=== PATIENT | male | born 1965 | race Caucasian/White ===

== ENCOUNTER 2018-01-12 14:54 | Inpatient (IN) | payer OTHER ==
[2018-01-12 16:28] VITALS: BMI 20.2
--- NOTE | 2018-01-12 16:28 | HP ---
COWS - Scale Resting Pulse: 1= [place] 81-100 Sweatin=Flushed/Facial Moisture Restless Observation: 3= Extraneous Movement Pupil Size: 2= Moderately Dilated Bone or Joint Aches: 2= Severe Diffuse Aches Runny Nose/ Eye Tearin= Runny Nose/Eyes GI Upset > 30mins: 3= Vomiting/Diarrhea Tremor Observation: 2= Slight Tremor Visible Yawning Observation: 1= 1-2x During Session Anxiety or Irritability: 2=Irritable/Anxious Goose Flesh Skin: 0=Smooth Skin COWS Score: 20 CIWA Score - CIWA Score Nausea/Vomitin Muscle Tremors: 3 Anxiety: 3 Agitation: 3 Paroxysmal Sweats: 1-Minimal Palms Moist Orientation: 0-Oriented Tacttile Disturbances: 1-Very Mild Itch/Numbness Auditory Disturbances: 1-Very Mild Visual Disturbances: 1-Very Mild Sensitivity Headache: 2-Mild CIWA-Ar Total Score: 18 Admission ROS BHS - HPI Chief Complaint: i need help to stop using heroin,alcohol and crack Allergies/Adverse Reactions: Allergies Allergy/AdvReac Type Severity Reaction Status Date / Time No Known Allergies Allergy Verified 12/11/17 18:44 History of Present Illness: this 52 years old male with heroin,alcohol and cocaine dependence,seeking detox, withdrawal symptom,last detox to 12/13/17 not completed nicotine dependence depression weight loss longest period of sobriety 1 year multiple admissions in detox but keep relapsing asthma hiv positive since 1999 Exam Limitations: No Limitations - Review of Systems Constitutional: Chills, Loss of Appetite, Malaise, Night Sweats, Changes in sleep, Weakness, Unintentional Wgt. Loss EENT: reports: Tearing, Nose Congestion Respiratory: reports: No Symptoms reported Cardiac: reports: Palpitations GI: reports: Diarrhea, Nausea, Vomiting, Abdominal cramping : reports: No Symptoms Reported Musculoskeletal: reports: Back Pain, Muscle Pain Integumentary: reports: Dryness Neuro: reports: Headache, Tremors Endocrine: reports: No Symptoms Reported Hematology: reports: No Symptoms Reported Psychiatric: reports: No Sypmtoms Reported, Judgement Intact, Mood/Affect Appropiate, Orientated x3, Anxious, Depressed Patient History - Patient Medical History Hx Anemia: No Hx Asthma: Yes (on albutrol inhaler) Hx Chronic Obstructive Pulmonary Disease (COPD): No Hx Cancer: No Hx Cardiac Disorders: No Hx Congestive Heart Failure: No Hx Hypertension: No Hx Hypercholesterolemia: No Hx Pacemaker: No HX Cerebrovascular Accident: No Hx Seizures: No Hx Dementia: No Hx Diabetes: No Hx Gastrointestinal Disorders: No Hx Liver Disease: No Hx Genitourinary Disorders: No Hx Sexually Transmitted Disorders: Yes (HIV ) Hx Renal Disease (ESRD): No Hx Thyroid Disease: No Hx Human Immunodeficiency Virus (HIV): Yes (HIV dx 2000 [place], [place] or [place] ) Hx Hepatitis C: No Hx Depression: Yes Hx Suicide Attempt: Yes (cut left wrist at age of 18) Hx Bipolar Disorder: No Hx Schizophrenia: No Other Medical History: no suicidal,no homicidal - Patient Surgical History Past Surgical History: No Hx Neurologic Surgery: No Hx Cataract Extraction: No Hx Cardiac Surgery: No Hx Lung Surgery: No Hx Breast Surgery: No Hx Breast Biopsy: No Hx Abdominal Surgery: No Hx Appendectomy: No Hx Cholecystectomy: No Hx Genitourinary Surgery: No Hx Section: No Hx Orthopedic Surgery: No Anesthesia Reaction: No - PPD History Previous Implant?: Yes Documented Results: Negative w/proof Date: 12/14/17 Results: no reading PPD to be Administered?: Yes - Smoking Cessation Smoking history: Current every day smoker Have you smoked in the past 12 months: Yes Aproximately how many cigarettes per day: 20 Hx Chewing Tobacco Use: No Initiated information on smoking cessation: Yes 'Breaking Loose' booklet given: 01/12/18 - Substance & Tx. History Hx Alcohol Use: Yes Hx Substance Use: Yes Substance Use Type: Alcohol, Cocaine, Heroin Hx Substance Use Treatment: Yes ([facility] 12/11/17 to 12/13/17 not completed) - Substances Abused Alcohol Route: Oral Frequency: Daily Amount used: 2/24OZ BEER Age of first use: 20 Date of Last Use: 01/12/18 Heroin Route: SNIFF Frequency: Daily Amount used: 2 BAGS Age of first use: 20 Date of Last Use: 01/12/18 Family Disease History - Family Disease History Family Disease History: Diabetes: Mother (, alzheimers ), Other: Father ( , suicide ), Mother Admission Physical Exam BHS - Vital Signs Vital Signs: Vital Signs Temperature 96.8 F L 01/12/18 16:25 Pulse Rate 83 01/12/18 16:25 Respiratory Rate 20 01/12/18 16:25 Blood Pressure 165/61 01/12/18 16:25 O2 Sat by Pulse Oximetry (%) - Physical General Appearance: Yes: Moderate Distress, Tremorous, Irritable, Sweating, Anxious HEENTM: Yes: Normal ENT Inspection, NITHYA, Pharynx Normal, Other (loss upper denture) Respiratory: Yes: Lungs Clear, Normal Breath Sounds, No Respiratory Distress ( asthma) Neck: Yes: Within Normal Limits, Supple, Trachea in good position Breast: Yes: Within Normal Limits Cardiology: Yes: Within Normal Limits, Regular Rhythm, Regular Rate, S1, S2 Abdominal: Yes: Within Normal Limits, Normal Bowel Sounds, Non Tender, Flat, Soft Genitourinary: Yes: Within Normal Limits Musculoskeletal: Yes: Within Normal Limits, full range of Motion, Back pain, Muscle Pain Extremities: Yes: Tremors Neurological: Yes: 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 NML intact, Fully Oriented, Alert, Motor Strength 5/5 Integumentary: Yes: Dry Lymphatic: Yes: Within Normal Limits - Diagnostic (1) Opioid dependence with withdrawal Current Visit: Yes Status: Acute (2) Alcohol dependence with withdrawal Current Visit: No Status: Acute Qualifiers: Complication of substance-induced condition: uncomplicated Qualified Code(s ): F10.230 - Alcohol dependence with withdrawal, uncomplicated (3) Cocaine dependence Current Visit: No Status: Acute Qualifiers: Substance use status: uncomplicated Qualified Code(s): F14.20 - Cocaine dependence, uncomplicated (4) Asthma Current Visit: No Status: Acute Qualifiers: Asthma severity: mild Asthma persistence: intermittent Asthma complication type: with acute exacerbation Qualified Code(s): J45.21 - Mild intermittent asthma with (acute) exacerbation (5) Insomnia Current Visit: No Status: Acute (6) HIV (human immunodeficiency virus infection) Current Visit: No Status: Chronic (7) Anxiety and depression Current Visit: Yes Status: Acute (8) Weight loss Current Visit: Yes Status: Acute Cleared for Admission S - Detox or Rehab S Level of Care: Medically Managed Detox Regimen/Protocol: Methadone/Librium
[2018-01-12] MEDS ORDERED: LOPERAMIDE HCL 2 MG CAPSULE PO PRN (16:45)
[2018-01-12] MEDS ORDERED: guaiFENesin/D-METHORPHAN HB 10 ML UNIT-DOSE CUPS PO PRN (16:45)
[2018-01-12] MEDS ORDERED: ACETAMINOPHEN 325 MG TABLET (FP) PO PRN (16:45)
[2018-01-12] MEDS ORDERED: MAG HYDROX/AL HYDROX/SIMETH 30 ML UNIT-DOSE CUP PO PRN (16:45)
[2018-01-12] MEDS ORDERED: MAGNESIUM CITRATE 300 ML BOTTLE PO PRN (16:45)
[2018-01-12] MEDS ORDERED: P-EPHED 60MG/TRIPROLIDI 2.5MG TABLET PO PRN (16:45)
[2018-01-12] MEDS ORDERED: chlordiazePOXIDE HCL 25 MG CAPSULE PO PRN (16:45)
[2018-01-12] MEDS ORDERED: MENTHOL/PHENOL 1 EACH UD MM PRN (16:45)
[2018-01-12] MEDS ORDERED: MAGNESIUM HYDROX 2400MG/30ML ORAL SUSPENSION 30 ML CUP PO PRN (16:45)
[2018-01-12] MEDS ORDERED: METHADONE HCL 10 MG TABLET (FOR DETOX USE ONLY) PO ONE ×2 (17:30→23:00)
[2018-01-12] MEDS: NICOTINE 21 MG/24 HOURS TOPICAL PATCH TD SCH (19:02)
[2018-01-12 22:21] LABS: URINE APPEARANCE CLEAR; URINE BILIRUBIN NEGATIVE (<2.0 mg/dL); URINE COLOR YELLOW; URINE GLUCOSE (UA) NEGATIVE (NEGATIVE); URINE KETONE NEGATIVE (NEGATIVE); URINE LEUK ESTERASE TRACE (NEGATIVE); URINE NITRITE NEGATIVE (NEGATIVE); URINE PROTEIN NEGATIVE (NEGATIVE)
[2018-01-12 22:35] LABS: EPI CELLS RARE /HPF (FEW); URINE MUCUS RARE
[2018-01-12] MEDS: THIAMINE HCL 100 MG TABLET (FP) PO SCH (22:41)
[2018-01-12] MEDS: chlordiazePOXIDE HCL 25 MG CAPSULE PO SCH (22:42)
[2018-01-13] MEDS: chlordiazePOXIDE HCL 25 MG CAPSULE PO SCH ×4 (05:21→22:30)
--- NOTE | 2018-01-13 08:55 | EKG ---
Test Reason : Blood Pressure : / mmHG Vent. Rate : 076 BPM Atrial Rate : 076 BPM P-R Int : 132 ms QRS Dur : 078 ms QT Int : 352 ms P-R-T Axes : 080 067 062 degrees QTc Int : 396 ms NORMAL SINUS RHYTHM NORMAL ECG WHEN COMPARED WITH ECG OF 12-DEC-2017 02:07, NO SIGNIFICANT CHANGE WAS FOUND Confirmed by RAINER ENGLISH MD ([id number]) on 01/13/2018 8:55:06 AM Referred By: Geovany Limon Confirmed By:RAINER ENGLISH MD
[2018-01-13] MEDS: ALBUTEROL SO4 8 GM HFA INHALER IH PRN (09:14)
--- NOTE | 2018-01-13 09:33 | CONSULT ---
[facility] Psychiatric Consult - Data Date of interview: 01/13/18 Admission source: Self-referred, I called the ambulance Identifying data: Patient is a 52 y/o male single, unemployed, no children , homelesa, SSI dependent Substance Abuse History: Here for use of ETOH, crack/ cocaine, His most recent Detox treatment was last month @ [facility] and failed to complete the treatment program. Refer to addiction counselor note for detailed drug history Medical History: Medical history HIV + Asthma Psychiatric History: He denies past psych admission or treatment, denies depression, anxiety, psychosis or mood swings. He denies suicidal or homicidal ideation. He reported a vague history of self-cutting behavior in his late adolescence Physical/Sexual Abuse/Trauma History: Denied Mental Status Exam - Mental Status Exam Alert and Oriented to: Place, Person Cognitive Function: Fair Patient Appearance: Unkempt Mood: Euthymic Affect: Appropriate Patient Behavior: Sedated, Fatigued, Cooperative Speech Pattern: Slurred Voice Loudness: Moderately Soft/Quiet Thought Process: Intact Thought Disorder: Not Present Hallucinations: None Suicidal Ideation: None Homicidal Ideation: None Insight/Judgement: Poor Sleep: Poorly Appetite: Fair Muscle strength/Tone: Normal Gait/Station: Normal Psychiatric Findings - Problem List ([place] 1, 2,3) (1) Opioid dependence with withdrawal Current Visit: Yes Status: Acute (2) Alcohol dependence with withdrawal Current Visit: No Status: Acute Qualifiers: Complication of substance-induced condition: uncomplicated Qualified Code(s ): F10.230 - Alcohol dependence with withdrawal, uncomplicated (3) Asthma Current Visit: No Status: Acute Qualifiers: Asthma severity: mild Asthma persistence: intermittent Asthma complication type: with acute exacerbation Qualified Code(s): J45.21 - Mild intermittent asthma with (acute) exacerbation (4) Cocaine dependence Current Visit: No Status: Acute Qualifiers: Substance use status: uncomplicated Qualified Code(s): F14.20 - Cocaine dependence, uncomplicated (5) Insomnia Current Visit: No Status: Acute (6) HIV (human immunodeficiency virus infection) Current Visit: No Status: Chronic - Initial Treatment Plan Initial Treatment Plan: Continue Detox treatmment. Psychoeducation. Monitor progress. Melatonin prn
[2018-01-13] MEDS ORDERED: METHADONE HCL 10 MG TABLET (FOR DETOX USE ONLY) PO SCH (10:00)
[2018-01-13 10:19] LABS: HEMATOCRIT 38.8 % (35.4-49); HEMOGLOBIN 13.4 GM/dL (11.7-16.9); MCH 34.5 pg (25.7-33.7); MCHC 34.6 g/dl (32.0-35.9); MEAN CELL VOLUME 99.7 fl (80-96); MEAN PLT VOLUME 9.2 fl (7.5-11.1); PLATELET COUNT 117 K/MM3 (134-434); WHITE BLOOD COUNT 2.1 K/mm3 (4.0-10.0)
[2018-01-13] MEDS: DARUNAVIR ETHANOLATE 600 MG TAB PO SCH (10:30)
[2018-01-13] MEDS: PRENATAL VITAMINS W/ FOLIC ACID TABLET (FP) PO SCH (10:30)
[2018-01-13] MEDS: EMTRICITABINE 200MG/TENOFOVIR 300MG PO SCH (10:30)
[2018-01-13] MEDS: NICOTINE 21 MG/24 HOURS TOPICAL PATCH TD SCH (10:30)
[2018-01-13 10:35] LABS: CHLORIDE 106 mmol/L (98-107); SODIUM 140 mmol/L (136-145)
[2018-01-13 10:45] LABS: ALBUMIN 3.1 g/dl (3.4-5.0); ALK PHOS 90 U/L (45-117); ANION GAP 7 (8-16); BILIRUBIN,TOTAL 0.4 mg/dL (0.2-1.0); BLOOD UREA NITROGEN 15 mg/dL (7-18); CALCIUM 8.5 mg/dL (8.5-10.1); CO2 27 mmol/L (21-32); CREATININE 0.7 mg/dL (0.7-1.3); GLUCOSE,RANDOM 84 mg/dL (74-106); SGOT/AST 51 U/L (15-37); SGPT/ALT 43 U/L (12-78); TOT PROT 7.2 g/dl (6.4-8.2)
[2018-01-13] MEDS: RITONAVIR 100 MG TABLET PO SCH (11:16)
--- NOTE | 2018-01-13 15:04 | PN ---
S CIWA - CIWA Score Nausea/Vomitin Muscle Tremors: 4-Moderate,w/Arms Extend Anxiety: 4-Mod. Anxious/Guarded Agitation: 4-Moderately Restless Paroxysmal Sweats: 4-Forehead w/Sweat Beads Orientation: 0-Oriented Tacttile Disturbances: 1-Very Mild Itch/Numbness Auditory Disturbances: 0-None Visual Disturbances: 0-None Headache: 1-Very Mild CIWA-Ar Total Score: 20 BHS COWS - Scale Resting Pulse: 0= [place] 80 or Below Sweatin= Chills/Flushing Restless Observation: 3= Extraneous Movement Pupil Size: 1= Pupils >than Normal Bone or Joint Aches: 2= Severe Diffuse Aches Runny Nose/ Eye Tearin= Runny Nose/Eyes GI Upset > 30mins: 2= Nausea/Diarrhea Tremor Observation of Outstretched Hands: 2= Slight Tremor Visible Yawning Observation: 1= 1-2x During Session Anxiety or Irritability: 2=Irritable/Anxious Goose Flesh Skin: 0=Smooth Skin COWS Score: 16 BHS Progress Note (SOAP) Subjective: Tremor, chills, diarrhea(x 2 this AM), interrupted sleep; requesting cane for easier mobility due to chronic pain in hips Objective: 01/13/18 15:02 Last Vital Signs Temp Pulse Resp BP Pulse Ox 98.1 F 78 18 97/64 01/13/18 14:44 01/13/18 14:44 01/13/18 14:44 01/13/18 14:44 Hypotension noted Laboratory Tests 01/12/18 01/13/18 01/13/18 Unknown 07:40 07:40 WBC 2.1 L RBC 3.90 L Hgb 13.4 Hct 38.8 MCV 99.7 H MCH 34.5 H MCHC 34.6 RDW 13.0 Plt Count 117 L MPV 9.2 Sodium 140 Potassium 4.0 Chloride 106 Carbon Dioxide 27 Anion Gap 7 L BUN 15 Creatinine 0.7 Creat Clearance w eGFR > 60 Random Glucose 84 Calcium 8.5 Total Bilirubin 0.4 AST 51 H ALT 43 Alkaline Phosphatase 90 Total Protein 7.2 Albumin 3.1 L Urine Color Yellow Urine Appearance Clear Urine pH 6.0 Ur Specific [place] 1.014 Urine Protein Negative Urine Glucose (UA) Negative Urine Ketones Negative Urine Blood Negative Urine Nitrite Negative Urine Bilirubin Negative Urine Urobilinogen 2.0 Ur Leukocyte Esterase Trace Urine WBC (Auto) 11 Urine RBC (Auto) 2 Ur Epithelial Cells Rare Urine Mucus Rare RPR Titer 01/13/18 07:40 WBC RBC Hgb Hct MCV MCH MCHC RDW Plt Count MPV Sodium Potassium Chloride Carbon Dioxide Anion Gap BUN Creatinine Creat Clearance w eGFR Random Glucose Calcium Total Bilirubin AST ALT Alkaline Phosphatase Total Protein Albumin Urine Color Urine Appearance Urine pH Ur Specific [place] Urine Protein Urine Glucose (UA) Urine Ketones Urine Blood Urine Nitrite Urine Bilirubin Urine Urobilinogen Ur Leukocyte Esterase Urine WBC (Auto) Urine RBC (Auto) Ur Epithelial Cells Urine Mucus RPR Titer Nonreactive Labs reviewed Assessment: 01/13/18 15:03 Withdrawal symptoms Noted with hypotension Plan: Continue detox Hypotension: asymptomatic, encouraged PO water hydration
[2018-01-13] MEDS: THIAMINE HCL 100 MG TABLET (FP) PO SCH (22:30)
[2018-01-14] MEDS: ALBUTEROL SO4 8 GM HFA INHALER IH PRN (03:03)
[2018-01-14] MEDS: chlordiazePOXIDE HCL 25 MG CAPSULE PO SCH ×3 (05:39→17:28)
[2018-01-14] MEDS: IBUPROFEN 400 MG TABLET (FP) PO PRN ×2 (05:41→15:47)
--- NOTE | 2018-01-14 06:36 | PN ---
[facility] Progress Note Note: Patient complained of dry cough. Temp is 101.4F. Patient reports that he has history of pneumonia Vital Signs Temperature 101.4 F H 01/14/18 06:34 Pulse Rate 87 01/14/18 06:34 Respiratory Rate 18 01/14/18 06:34 Blood Pressure 95/55 01/14/18 06:34 O2 Sat by Pulse Oximetry (%) Action: Orders-Chest x-ray, CBC with Differential, Urinalysis and Tylenol for fever
[2018-01-14] MEDS: RITONAVIR 100 MG TABLET PO SCH (10:37)
[2018-01-14] MEDS: NICOTINE 21 MG/24 HOURS TOPICAL PATCH TD SCH (10:37)
[2018-01-14] MEDS: EMTRICITABINE 200MG/TENOFOVIR 300MG PO SCH (10:38)
[2018-01-14] MEDS: DARUNAVIR ETHANOLATE 600 MG TAB PO SCH (10:38)
[2018-01-14 11:15] LABS: BASO % 0.2 % (0-2.0); EOS % 0.5 % (0-4.5); HEMATOCRIT 38.3 % (35.4-49); HEMOGLOBIN 13.3 GM/dL (11.7-16.9); LYMPH % 24.6 % (8-40); MCH 34.9 pg (25.7-33.7); MCHC 34.9 g/dl (32.0-35.9); MEAN CELL VOLUME 100.1 fl (80-96); MONO % 10.1 % (3.8-10.2); NEUT % 64.6 % (42.8-82.8); PLATELET COUNT 112 K/MM3 (134-434); RBC 3.82 M/mm3 (4.00-5.60); RDW 12.7 % (11.9-15.9); WHITE BLOOD COUNT 3.8 K/mm3 (4.0-10.0)
[2018-01-14] MEDS: PRENATAL VITAMINS W/ FOLIC ACID TABLET (FP) PO SCH (11:29)
[2018-01-14] MEDS: METHADONE HCL 5 MG TABLET (FOR DETOX USE ONLY) PO SCH (12:41)
--- NOTE | 2018-01-14 13:01 | PN ---
S CIWA - CIWA Score Nausea/Vomitin-No Nausea/No Vomiting Muscle Tremors: 4-Moderate,w/Arms Extend Anxiety: 4-Mod. Anxious/Guarded Agitation: 3 Paroxysmal Sweats: 1-Minimal Palms Moist Orientation: 0-Oriented Tacttile Disturbances: 0-None Auditory Disturbances: 0-None Visual Disturbances: 0-None Headache: 0-None Present CIWA-Ar Total Score: 12 BHS COWS - Scale Resting Pulse: 1= [place] 81-100 Sweatin= Chills/Flushing Restless Observation: 3= Extraneous Movement Pupil Size: 0= Normal to Room Light Bone or Joint Aches: 4=Acute Joint/Muscle Pain Runny Nose/ Eye Tearin= None GI Upset > 30mins: 0= None Tremor Observation of Outstretched Hands: 2= Slight Tremor Visible Yawning Observation: 1= 1-2x During Session Anxiety or Irritability: 1=Feels Anxious/Irritable Goose Flesh Skin: 0=Smooth Skin COWS Score: 13 S Progress Note (SOAP) Subjective: ANXIETY,SWEATS,FATIGUE, DIZZINESS. PT HAD TEMP 101.9 FROM PREVIOUS SHIFT. AFEBRILE NOW. Objective: 01/14/18 12:59 Vital Signs - 24 hr 01/13/18 01/13/18 01/13/18 14:44 18:00 21:46 Temperature 98.1 F 99.5 F 98.7 F Pulse Rate 78 74 81 Respiratory 18 18 18 Rate Blood Pressure 97/64 93/55 86/57 01/14/18 01/14/18 01/14/18 00:30 03:30 06:34 Temperature 101.4 F H Pulse Rate 87 Respiratory 18 18 18 Rate Blood Pressure 95/55 01/14/18 09:17 Temperature 98.2 F Pulse Rate 81 Respiratory 18 Rate Blood Pressure 87/48 Laboratory Tests 01/12/18 01/13/18 01/13/18 Unknown 07:40 07:40 WBC 2.1 L RBC 3.90 L Hgb 13.4 Hct 38.8 MCV 99.7 H MCH 34.5 H MCHC 34.6 RDW 13.0 Plt Count 117 L MPV 9.2 Absolute Neuts (auto) Neutrophils % Lymphocytes % Monocytes % Eosinophils % Basophils % Nucleated RBC % Sodium 140 Potassium 4.0 Chloride 106 Carbon Dioxide 27 Anion Gap 7 L BUN 15 Creatinine 0.7 Creat Clearance w eGFR > 60 Random Glucose 84 Calcium 8.5 Total Bilirubin 0.4 AST 51 H ALT 43 Alkaline Phosphatase 90 Total Protein 7.2 Albumin 3.1 L Urine Color Yellow Urine Appearance Clear Urine pH 6.0 Ur Specific [place] 1.014 Urine Protein Negative Urine Glucose (UA) Negative Urine Ketones Negative Urine Blood Negative Urine Nitrite Negative Urine Bilirubin Negative Urine Urobilinogen 2.0 Ur Leukocyte Esterase Trace Urine WBC (Auto) 11 Urine RBC (Auto) 2 Ur Epithelial Cells Rare Urine Mucus Rare RPR Titer 01/13/18 01/14/18 07:40 07:00 WBC 3.8 L RBC 3.82 L Hgb 13.3 Hct 38.3 MCV 100.1 H MCH 34.9 H MCHC 34.9 RDW 12.7 Plt Count 112 L MPV 9.0 Absolute Neuts (auto) 2.5 Neutrophils % 64.6 Lymphocytes % 24.6 Monocytes % 10.1 Eosinophils % 0.5 Basophils % 0.2 Nucleated RBC % 0 Sodium Potassium Chloride Carbon Dioxide Anion Gap BUN Creatinine Creat Clearance w eGFR Random Glucose Calcium Total Bilirubin AST ALT Alkaline Phosphatase Total Protein Albumin Urine Color Urine Appearance Urine pH Ur Specific [place] Urine Protein Urine Glucose (UA) Urine Ketones Urine Blood Urine Nitrite Urine Bilirubin Urine Urobilinogen Ur Leukocyte Esterase Urine WBC (Auto) Urine RBC (Auto) Ur Epithelial Cells Urine Mucus RPR Titer Nonreactive Assessment: 01/14/18 12:59 WITHDRAWAL SX Plan: CONTINUE DETOX INCREASE PO FLUIDS MONITOR PT STATUS LIBRIUM HELD AT 10 AM DUE TO DIZZINESS REPEAT LABS/UA/CXR RESULTS PENDING
[2018-01-14] MEDS ORDERED: AZITHROMYCIN 600 MG TABLET PO ONE (14:00)
[2018-01-14] MEDS ORDERED: SULFAMETHOXAZOLE/TRIMETHOPRIM 800MG/160MG D.S. TABLET PO ONE (14:00)
--- NOTE | 2018-01-14 17:20 | PN ---
S Progress Note Note: Received call from nurse that patient B/P is 86/52. Patient is alert and oriented. Vital Signs - 24 hr 01/13/18 01/13/18 01/14/18 18:00 21:46 00:30 Temperature 99.5 F 98.7 F Pulse Rate 74 81 Respiratory 18 18 18 Rate Blood Pressure 93/55 86/57 01/14/18 01/14/18 01/14/18 03:30 06:34 09:17 Temperature 101.4 F H 98.2 F Pulse Rate 87 81 Respiratory 18 18 18 Rate Blood Pressure 95/55 87/48 01/14/18 13:23 Temperature 99.4 F Pulse Rate 75 Respiratory 18 Rate Blood Pressure 86/45 Instructed to hold current dose of librium. Encourage 1 pitcher water every shift. Have patient elevate legs when in bed.
[2018-01-14 17:23] LABS: URINE APPEARANCE CLEAR; URINE BILIRUBIN NEGATIVE (<2.0 mg/dL); URINE COLOR AMBER; URINE GLUCOSE (UA) NEGATIVE (NEGATIVE); URINE KETONE NEGATIVE (NEGATIVE); URINE LEUK ESTERASE NEGATIVE (NEGATIVE); URINE NITRITE NEGATIVE (NEGATIVE); URINE PROTEIN NEGATIVE (NEGATIVE); URINE UROBILINOGEN NEGATIVE mg/dL (0.2-1.0)
[2018-01-14] MEDS: MELATONIN 5 MG TABLETS PO PRN (22:20)
[2018-01-14] MEDS: THIAMINE HCL 100 MG TABLET (FP) PO SCH (22:20)
[2018-01-14] MEDS: chlordiazePOXIDE 5 MG CAPSULE PO SCH (23:04)
[2018-01-15] MEDS: chlordiazePOXIDE 5 MG CAPSULE PO SCH ×3 (06:05→17:19)
[2018-01-15] MEDS: IBUPROFEN 400 MG TABLET (FP) PO PRN (06:05)
[2018-01-15] MEDS: PRENATAL VITAMINS W/ FOLIC ACID TABLET (FP) PO SCH (10:36)
[2018-01-15] MEDS: SULFAMETHOXAZOLE/TRIMETHOPRIM 800MG/160MG D.S. TABLET PO SCH (10:36)
[2018-01-15] MEDS: NICOTINE 21 MG/24 HOURS TOPICAL PATCH TD SCH (10:37)
[2018-01-15] MEDS: DARUNAVIR ETHANOLATE 600 MG TAB PO SCH (10:37)
[2018-01-15] MEDS: RITONAVIR 100 MG TABLET PO SCH (10:37)
[2018-01-15] MEDS: EMTRICITABINE 200MG/TENOFOVIR 300MG PO SCH (10:37)
[2018-01-15] MEDS: METHADONE HCL 5 MG TABLET (FOR DETOX USE ONLY) PO SCH (11:05)
--- NOTE | 2018-01-15 12:17 | PN ---
[facility] Progress Note (SOAP) Subjective: SLIGHT ANXIETY.PT IS ALERT O X 3. DENIES PAIN, COUGHING OR SOB. REPORTS 'I FEEL BETTER'. Objective: 01/15/18 12:14 Vital Signs - 24 hr 01/14/18 01/14/18 01/14/18 13:23 18:35 22:00 Temperature 99.4 F 98.7 F 98.7 F Pulse Rate 75 83 80 Respiratory 18 18 18 Rate Blood Pressure 86/45 86/52 86/48 01/15/18 01/15/18 01/15/18 00:30 03:30 06:27 Temperature 101.1 F H Pulse Rate 92 H Respiratory 18 18 16 Rate Blood Pressure 97/58 01/15/18 01/15/18 01/15/18 06:30 08:00 09:29 Temperature 98.4 F 97.3 F L Pulse Rate 82 Respiratory 18 16 Rate Blood Pressure 82/50 Laboratory Tests 01/12/18 01/13/18 01/13/18 Unknown 07:40 07:40 WBC 2.1 L RBC 3.90 L Hgb 13.4 Hct 38.8 MCV 99.7 H MCH 34.5 H MCHC 34.6 RDW 13.0 Plt Count 117 L MPV 9.2 Absolute Neuts (auto) Neutrophils % Lymphocytes % Monocytes % Eosinophils % Basophils % Nucleated RBC % Sodium 140 Potassium 4.0 Chloride 106 Carbon Dioxide 27 Anion Gap 7 L BUN 15 Creatinine 0.7 Creat Clearance w eGFR > 60 Random Glucose 84 Calcium 8.5 Total Bilirubin 0.4 AST 51 H ALT 43 Alkaline Phosphatase 90 Total Protein 7.2 Albumin 3.1 L Urine Color Yellow Urine Appearance Clear Urine pH 6.0 Ur Specific [place] 1.014 Urine Protein Negative Urine Glucose (UA) Negative Urine Ketones Negative Urine Blood Negative Urine Nitrite Negative Urine Bilirubin Negative Urine Urobilinogen 2.0 Ur Leukocyte Esterase Trace Urine WBC (Auto) 11 Urine RBC (Auto) 2 Ur Epithelial Cells Rare Urine Mucus Rare RPR Titer 01/13/18 01/14/18 01/14/18 07:40 07:00 11:30 WBC 3.8 L RBC 3.82 L Hgb 13.3 Hct 38.3 MCV 100.1 H MCH 34.9 H MCHC 34.9 RDW 12.7 Plt Count 112 L MPV 9.0 Absolute Neuts (auto) 2.5 Neutrophils % 64.6 Lymphocytes % 24.6 Monocytes % 10.1 Eosinophils % 0.5 Basophils % 0.2 Nucleated RBC % 0 Sodium Potassium Chloride Carbon Dioxide Anion Gap BUN Creatinine Creat Clearance w eGFR Random Glucose Calcium Total Bilirubin AST ALT Alkaline Phosphatase Total Protein Albumin Urine Color [place] Urine Appearance Clear Urine pH 5.0 Ur Specific [place] 1.017 Urine Protein Negative Urine Glucose (UA) Negative Urine Ketones Negative Urine Blood Negative Urine Nitrite Negative Urine Bilirubin Negative Urine Urobilinogen Negative Ur Leukocyte Esterase Negative Urine WBC (Auto) Urine RBC (Auto) Ur Epithelial Cells Urine Mucus RPR Titer Nonreactive Assessment: 01/15/18 12:15 WITHDRAWAL SX Plan: CONTINUE DETOX INCREASE PO FLUIDS RESTARTED PT ON ZITHROMAX WEEKLY AND BACTRIM DS DAILY YESTERDAY.
[2018-01-15] MEDS: THIAMINE HCL 100 MG TABLET (FP) PO SCH (22:19)
[2018-01-15] MEDS: chlordiazePOXIDE HCL 10 MG CAPSULE PO SCH (22:20)
[2018-01-16] MEDS: chlordiazePOXIDE HCL 10 MG CAPSULE PO SCH ×3 (06:59→17:22)
[2018-01-16] MEDS ORDERED: METHADONE HCL 10 MG TABLET (FOR DETOX USE ONLY) PO SCH (10:00)
[2018-01-16] MEDS: PRENATAL VITAMINS W/ FOLIC ACID TABLET (FP) PO SCH (10:19)
[2018-01-16] MEDS: NICOTINE 21 MG/24 HOURS TOPICAL PATCH TD SCH (10:19)
[2018-01-16] MEDS: SULFAMETHOXAZOLE/TRIMETHOPRIM 800MG/160MG D.S. TABLET PO SCH (10:20)
[2018-01-16] MEDS: EMTRICITABINE 200MG/TENOFOVIR 300MG PO SCH (10:20)
[2018-01-16] MEDS: RITONAVIR 100 MG TABLET PO SCH (10:20)
[2018-01-16] MEDS: DARUNAVIR ETHANOLATE 600 MG TAB PO SCH (10:20)
--- NOTE | 2018-01-16 12:19 | PN ---
[facility] Progress Note (SOAP) Subjective: PT IS OUT OF BED AMBULATING WITH STEADY GAIT AND WENT TO HIS COUNSELOR FOR REHAB ARRANGEMENT POST DETOX. PT REPORTS FEELS BETTER TODAY. AFEBRILE. Objective: 01/16/18 12:18 Vital Signs 01/16/18 01/16/18 06:23 09:43 Temperature 98.2 F 98.6 F Pulse Rate 82 78 Respiratory 18 18 Rate Blood Pressure 85/50 91/56 Laboratory Tests 01/12/18 01/13/18 01/13/18 Unknown 07:40 07:40 WBC 2.1 L RBC 3.90 L Hgb 13.4 Hct 38.8 MCV 99.7 H MCH 34.5 H MCHC 34.6 RDW 13.0 Plt Count 117 L MPV 9.2 Absolute Neuts (auto) Neutrophils % Lymphocytes % Monocytes % Eosinophils % Basophils % Nucleated RBC % Sodium 140 Potassium 4.0 Chloride 106 Carbon Dioxide 27 Anion Gap 7 L BUN 15 Creatinine 0.7 Creat Clearance w eGFR > 60 Random Glucose 84 Calcium 8.5 Total Bilirubin 0.4 AST 51 H ALT 43 Alkaline Phosphatase 90 Total Protein 7.2 Albumin 3.1 L Urine Color Yellow Urine Appearance Clear Urine pH 6.0 Ur Specific [place] 1.014 Urine Protein Negative Urine Glucose (UA) Negative Urine Ketones Negative Urine Blood Negative Urine Nitrite Negative Urine Bilirubin Negative Urine Urobilinogen 2.0 Ur Leukocyte Esterase Trace Urine WBC (Auto) 11 Urine RBC (Auto) 2 Ur Epithelial Cells Rare Urine Mucus Rare RPR Titer 01/13/18 01/14/18 01/14/18 07:40 07:00 11:30 WBC 3.8 L RBC 3.82 L Hgb 13.3 Hct 38.3 MCV 100.1 H MCH 34.9 H MCHC 34.9 RDW 12.7 Plt Count 112 L MPV 9.0 Absolute Neuts (auto) 2.5 Neutrophils % 64.6 Lymphocytes % 24.6 Monocytes % 10.1 Eosinophils % 0.5 Basophils % 0.2 Nucleated RBC % 0 Sodium Potassium Chloride Carbon Dioxide Anion Gap BUN Creatinine Creat Clearance w eGFR Random Glucose Calcium Total Bilirubin AST ALT Alkaline Phosphatase Total Protein Albumin Urine Color [place] Urine Appearance Clear Urine pH 5.0 Ur Specific [place] 1.017 Urine Protein Negative Urine Glucose (UA) Negative Urine Ketones Negative Urine Blood Negative Urine Nitrite Negative Urine Bilirubin Negative Urine Urobilinogen Negative Ur Leukocyte Esterase Negative Urine WBC (Auto) Urine RBC (Auto) Ur Epithelial Cells Urine Mucus RPR Titer Nonreactive Assessment: 01/16/18 12:18 WITHDRAWAL SX Plan: CONTINUE DETOX
[2018-01-16] MEDS: MELATONIN 5 MG TABLETS PO PRN (22:26)
[2018-01-16] MEDS: THIAMINE HCL 100 MG TABLET (FP) PO SCH (22:26)
[2018-01-17] MEDS ORDERED: METHADONE HCL 5 MG TABLET (FOR DETOX USE ONLY) PO SCH (06:00)
[2018-01-17 06:07] VITALS: TEMP 97.7
[2018-01-17] MEDS ORDERED: RITONAVIR 100 MG TABLET PO SCH (08:00)
[2018-01-17] MEDS ORDERED: DARUNAVIR ETHANOLATE 800 MG TAB PO SCH (08:00)
[2018-01-17] MEDS ORDERED: EMTRICITABINE 200MG/TENOFOVIR 300MG PO SCH (08:00)
--- NOTE | 2018-01-17 08:50 | PN ---
[facility] Progress Note (SOAP) Subjective: DETOX COMPLETED. PT IS OOB AMBULATING WITH NO COMPLAINTS. PT STATES HE IS READY FOR REHAB TODAY. Objective: 01/17/18 08:49 Vital Signs 01/17/18 01/17/18 01/17/18 03:30 06:07 06:30 Temperature 97.7 F Pulse Rate 65 Respiratory 18 16 18 Rate Blood Pressure 91/52 Laboratory Tests 01/12/18 01/13/18 01/13/18 Unknown 07:40 07:40 WBC 2.1 L RBC 3.90 L Hgb 13.4 Hct 38.8 MCV 99.7 H MCH 34.5 H MCHC 34.6 RDW 13.0 Plt Count 117 L MPV 9.2 Absolute Neuts (auto) Neutrophils % Lymphocytes % Monocytes % Eosinophils % Basophils % Nucleated RBC % Sodium 140 Potassium 4.0 Chloride 106 Carbon Dioxide 27 Anion Gap 7 L BUN 15 Creatinine 0.7 Creat Clearance w eGFR > 60 Random Glucose 84 Calcium 8.5 Total Bilirubin 0.4 AST 51 H ALT 43 Alkaline Phosphatase 90 Total Protein 7.2 Albumin 3.1 L Urine Color Yellow Urine Appearance Clear Urine pH 6.0 Ur Specific [place] 1.014 Urine Protein Negative Urine Glucose (UA) Negative Urine Ketones Negative Urine Blood Negative Urine Nitrite Negative Urine Bilirubin Negative Urine Urobilinogen 2.0 Ur Leukocyte Esterase Trace Urine WBC (Auto) 11 Urine RBC (Auto) 2 Ur Epithelial Cells Rare Urine Mucus Rare RPR Titer 01/13/18 01/14/18 01/14/18 07:40 07:00 11:30 WBC 3.8 L RBC 3.82 L Hgb 13.3 Hct 38.3 MCV 100.1 H MCH 34.9 H MCHC 34.9 RDW 12.7 Plt Count 112 L MPV 9.0 Absolute Neuts (auto) 2.5 Neutrophils % 64.6 Lymphocytes % 24.6 Monocytes % 10.1 Eosinophils % 0.5 Basophils % 0.2 Nucleated RBC % 0 Sodium Potassium Chloride Carbon Dioxide Anion Gap BUN Creatinine Creat Clearance w eGFR Random Glucose Calcium Total Bilirubin AST ALT Alkaline Phosphatase Total Protein Albumin Urine Color [place] Urine Appearance Clear Urine pH 5.0 Ur Specific [place] 1.017 Urine Protein Negative Urine Glucose (UA) Negative Urine Ketones Negative Urine Blood Negative Urine Nitrite Negative Urine Bilirubin Negative Urine Urobilinogen Negative Ur Leukocyte Esterase Negative Urine WBC (Auto) Urine RBC (Auto) Ur Epithelial Cells Urine Mucus RPR Titer Nonreactive Assessment: 01/17/18 08:49 MEDICALLY STABLE Plan: D/C PT TODAY TO REHAB
--- NOTE | 2018-01-17 08:57 | DS ---
[facility] Detox Discharge Summary Admission Date: 01/12/18 Discharge Date: 01/17/18 - History Present History: Alcohol Dependence Additional Comments: DETOX COMPLETED. ALERT O X 3. NAD. PT WILL FOLLOW UP WITH HIS PMD, DR. GONZALEZ AT [facility] IN [facility] FOR MEDICAL MANAGEMENT OF COMORBID CONDITIONS. PT IS REFERRED TO REHAB TODAY. Pertinent Past History: PLEASE SEE DX BELOW - Physical Exam Results Vital Signs: Vital Signs Temperature 97.7 F 01/17/18 06:07 Pulse Rate 65 01/17/18 06:07 Respiratory Rate 01/17/18 06:30 Blood Pressure 91/52 01/17/18 06:07 O2 Sat by Pulse Oximetry (%) Pertinent Admission Physical Exam Findings: WITHDRAWAL SX Laboratory Tests 01/12/18 01/13/18 01/13/18 Unknown 07:40 07:40 WBC 2.1 L RBC 3.90 L Hgb 13.4 Hct 38.8 MCV 99.7 H MCH 34.5 H MCHC 34.6 RDW 13.0 Plt Count 117 L MPV 9.2 Absolute Neuts (auto) Neutrophils % Lymphocytes % Monocytes % Eosinophils % Basophils % Nucleated RBC % Sodium 140 Potassium 4.0 Chloride 106 Carbon Dioxide 27 Anion Gap 7 L BUN 15 Creatinine 0.7 Creat Clearance w eGFR > 60 Random Glucose 84 Calcium 8.5 Total Bilirubin 0.4 AST 51 H ALT 43 Alkaline Phosphatase 90 Total Protein 7.2 Albumin 3.1 L Urine Color Yellow Urine Appearance Clear Urine pH 6.0 Ur Specific [place] 1.014 Urine Protein Negative Urine Glucose (UA) Negative Urine Ketones Negative Urine Blood Negative Urine Nitrite Negative Urine Bilirubin Negative Urine Urobilinogen 2.0 Ur Leukocyte Esterase Trace Urine WBC (Auto) 11 Urine RBC (Auto) 2 Ur Epithelial Cells Rare Urine Mucus Rare RPR Titer 01/13/18 01/14/18 01/14/18 07:40 07:00 11:30 WBC 3.8 L RBC 3.82 L Hgb 13.3 Hct 38.3 MCV 100.1 H MCH 34.9 H MCHC 34.9 RDW 12.7 Plt Count 112 L MPV 9.0 Absolute Neuts (auto) 2.5 Neutrophils % 64.6 Lymphocytes % 24.6 Monocytes % 10.1 Eosinophils % 0.5 Basophils % 0.2 Nucleated RBC % 0 Sodium Potassium Chloride Carbon Dioxide Anion Gap BUN Creatinine Creat Clearance w eGFR Random Glucose Calcium Total Bilirubin AST ALT Alkaline Phosphatase Total Protein Albumin Urine Color [place] Urine Appearance Clear Urine pH 5.0 Ur Specific [place] 1.017 Urine Protein Negative Urine Glucose (UA) Negative Urine Ketones Negative Urine Blood Negative Urine Nitrite Negative Urine Bilirubin Negative Urine Urobilinogen Negative Ur Leukocyte Esterase Negative Urine WBC (Auto) Urine RBC (Auto) Ur Epithelial Cells Urine Mucus RPR Titer Nonreactive - Treatment Hospital Course: Detox Protocol Followed, Detoxed Safely, Responded well, Discharged Condition Good, Rehab Referral Accepted Patient has Accepted a Rehab Referral to: [facility] - Medication Discharge Medications: Ambulatory Orders Darunavir Ethanolate [Prezista -] 600 mg PO DAILY 12/11/17 Emtricitabine/Tenofovir [Truvada] 1 tab PO DAILY 12/11/17 Ritonavir [Norvir -] 100 mg PO DAILY 12/11/17 Albuterol Sulfate [Proventil HFA Inhaler -] 2 puff IH Q6H PRN 12/13/17 Azithromycin [Zithromax 600mg Tablets -] 2 tab PO WEEKLY 01/14/18 Sulfamethoxazole/Trimethoprim [Bactrim DS -] 1 tab PO DAILY 01/14/18 - Diagnosis (1) Alcohol dependence with withdrawal Current Visit: Yes Status: Acute Qualifiers: Complication of substance-induced condition: uncomplicated Qualified Code(s ): F10.230 - Alcohol dependence with withdrawal, uncomplicated (2) Hypotension Current Visit: Yes Status: Chronic Qualifiers: Hypotension type: unspecified hypotension type Qualified Code(s): I95.9 - Hypotension, unspecified (3) Opioid dependence with withdrawal Current Visit: Yes Status: Acute (4) Weight loss Current Visit: Yes Status: Acute (5) Asthma Current Visit: Yes Status: Chronic Qualifiers: Asthma severity: unspecified severity Asthma persistence: unspecified Asthma complication type: uncomplicated Qualified Code(s): J45.909 - Unspecified asthma, uncomplicated (6) Cocaine dependence Current Visit: Yes Status: Acute Qualifiers: Substance use status: uncomplicated Qualified Code(s): F14.20 - Cocaine dependence, uncomplicated (7) HIV (human immunodeficiency virus infection) Current Visit: Yes Status: Chronic (8) Dehydration Current Visit: Yes Status: Acute - AMA Did Patient Leave Against Medical Advice: No
[2018-01-17 09:26] VITALS: PULSE 68
[2018-01-17 09:58] VITALS: BP 92/57
[2018-01-17] MEDS: PRENATAL VITAMINS W/ FOLIC ACID TABLET (FP) PO SCH (10:34)
[2018-01-17] MEDS: NICOTINE 21 MG/24 HOURS TOPICAL PATCH TD SCH (10:34)
[2018-01-17] MEDS: SULFAMETHOXAZOLE/TRIMETHOPRIM 800MG/160MG D.S. TABLET PO SCH (10:34)
[2018-01-21] MEDS ORDERED: AZITHROMYCIN 600 MG TABLET PO SCH (10:00)
== END 2018-01-17 13:45 | disposition other institution (70) | DRG 773 ==
LOC: YASAS 14:54 → Y3N 17:03
PROVIDERS: ADMIT Surgery; ATTEND Surgery
PROC: HZ2ZZZZ Detoxification Services for Substance Abuse Treatment (ICD-10-PCS; principal; 2018-01-12)
DX: F11.23 Opioid dependence with withdrawal (principal); F10.230 Alcohol dependence with withdrawal, uncomplicated; F14.20 Cocaine dependence, uncomplicated; F17.210 Nicotine dependence, cigarettes, uncomplicated; F41.8 Other specified anxiety disorders; I95.9 Hypotension, unspecified; J45.909 Unspecified asthma, uncomplicated; Z21 Asymptomatic human immunodeficiency virus [HIV] infection status; E86.0 Dehydration; R50.9 Fever, unspecified; R05 Cough; G47.00 Insomnia, unspecified; Z87.898 Personal history of other specified conditions; Z91.5 Personal history of self-harm
CPT/HCPCS: 36415; 71046-TC-FY; 80053; 81003; 81015; 85025; 85027; 86593; 93005; 93010

== ENCOUNTER 2018-01-17 13:53 | Inpatient (IN) | payer OTHER ==
[2018-01-17] MEDS ORDERED: P-EPHED 60MG/TRIPROLIDI 2.5MG TABLET PO PRN (16:00)
[2018-01-17] MEDS ORDERED: MAGNESIUM CITRATE 300 ML BOTTLE PO PRN (16:00)
[2018-01-17] MEDS ORDERED: hydrOXYzine PAMOATE 25 MG CAPSULE (FP) PO PRN (16:00)
[2018-01-17] MEDS ORDERED: IBUPROFEN 400 MG TABLET (FP) PO PRN (16:00)
[2018-01-17] MEDS ORDERED: LOPERAMIDE HCL 2 MG CAPSULE PO PRN (16:00)
[2018-01-17] MEDS ORDERED: MAG HYDROX/AL HYDROX/SIMETH 30 ML UNIT-DOSE CUP PO PRN (16:00)
[2018-01-17] MEDS ORDERED: MENTHOL/PHENOL 1 EACH UD MM PRN (16:00)
[2018-01-17] MEDS ORDERED: guaiFENesin/D-METHORPHAN HB 10 ML UNIT-DOSE CUPS PO PRN (16:00)
[2018-01-17] MEDS ORDERED: ACETAMINOPHEN 325 MG TABLET (FP) PO PRN (16:00)
[2018-01-17] MEDS ORDERED: NICOTINE POLACRILEX 4 MG GUM BUC PRN (16:00)
[2018-01-17] MEDS ORDERED: ALBUTEROL SO4 8 GM HFA INHALER IH PRN (16:05)
--- NOTE | 2018-01-17 16:05 | HP ---
[facility] Rehab Assess/Revision - Admission History Admitted to Rehab from: Y Date of Admission to Rehab: 01/17/10 - Findings Detox History & Physical reviewed: Yes Concur with findings: Yes Comments/Additional Findings: DETOX COMPLETED TODAY ON . Inpatient Rehab Admission - Initial Determination Are CD services needed?: Yes Free of communicable disease: Yes Not in need of hospitalization: Yes - Rehab Admission Criteria Patient is meeting Inpatient Rehab admission criteria:: Yes
[2018-01-17] MEDS: NICOTINE 21 MG/24 HOURS TOPICAL PATCH TD SCH (17:40)
[2018-01-17] MEDS: MAGNESIUM HYDROX 2400MG/30ML ORAL SUSPENSION 30 ML CUP PO PRN (20:17)
[2018-01-17] MEDS ORDERED: MELATONIN 5 MG TABLETS PO PRN (22:00)
[2018-01-17] MEDS ORDERED: THIAMINE HCL 100 MG TABLET (FP) PO SCH (22:00)
--- NOTE | 2018-01-18 06:34 | HP ---
Psychiatrist Admission - Data Date of interview: 01/18/18 Admission source: 3N Identifying data: This is the first [facility] dmission for this 52 years old male, unemployed on SSI, homeless Medical History: Significant for bronchial asthma and HIV+ sice 1999. Smokes cigarette 1ppd Psychiatric History: Reports that his only psychiatric treatment was at age 16 when he was admitted to [facility] for suicidal attempt by cutting his wrist in the context of family issues. Claims that he stayed there over a month and treated with Seroquel. Told caption writer that he had no follow up after discharge.At present, reports feeling depressed and sleeping poorly Physical/Sexual Abuse/Trauma History: Denies history of emotional, physical or sexual abuse as well as DV relationship. No service Additional Comment: Reports history of 2 previous misdemeanor arrests. Denies being on probation at present Vital Signs: Vital Signs - 24 hr 01/18/18 03:30 Respiratory 18 Rate Allergies/Adverse Reactions: Allergies Allergy/AdvReac Type Severity Reaction Status Date / Time No Known Allergies Allergy Verified 12/11/17 18:44 Date of last physical exam: 01/16/18 Concur with the findings of this exam: Yes - Substance Abuse/Tx History Hx Alcohol Use: Yes Hx Substance Use: Yes Substance Use Type: Alcohol (Started drinking alcohol at age 20, consumes 2x 24oz of beer daily. Last drank on 01/12/18), Cocaine (Started smoking crack cocaine at age 21, consumes $50-60 worth daily. Last smoked on 12/10/17), Heroin ( Started using heroin atage 20, consumes 2 bgs daily. Last used on 01/12/18), Marijuana (Started smoking marijuana at age 18, consumes one bag daily. Last smoked on 12/10/17) Hx Substance Use Treatment: Yes (2 previous inpt detox @ [facility]) Mental Status Exam - Mental Status Exam Alert and Oriented to: Time, Place, Person Cognitive Function: Fair Patient Appearance: Well Groomed Mood: Depressed Affect: Constricted Patient Behavior: Cooperative Speech Pattern: Clear Voice Loudness: Normal Thought Process: Intact, Goal Oriented Thought Disorder: Not Present Hallucinations: Denies Suicidal Ideation: Denies Homicidal Ideation: Denies Insight/Judgement: Fair Sleep: Poorly Appetite: Poor Muscle strength/Tone: Normal Gait/Station: Other (Uses a cane as ambulatory aid) Psychiatric Findings - Problem List ([place] 1, 2,3) (1) Alcohol dependence Current Visit: Yes Status: Acute (2) Opioid dependence Current Visit: Yes Status: Acute (3) Cocaine dependence Current Visit: No Status: Acute Qualifiers: Substance use status: uncomplicated Qualified Code(s): F14.20 - Cocaine dependence, uncomplicated (4) Cannabis dependence Current Visit: Yes Status: Acute (5) Nicotine dependence Current Visit: Yes Status: Chronic (6) Substance induced mood disorder Current Visit: Yes Status: Acute (7) Substance-induced sleep disorder Current Visit: Yes Status: Acute (8) Asthma Current Visit: No Status: Chronic Qualifiers: Asthma severity: unspecified severity Asthma persistence: unspecified Asthma complication type: uncomplicated Qualified Code(s): J45.909 - Unspecified asthma, uncomplicated (9) HIV (human immunodeficiency virus infection) Current Visit: No Status: Chronic - Initial Treatment Plan Initial Treatment Plan: 1) Start Melatonin 5 mg po HS prn for insomnia. 2) Monitor progress
[2018-01-18 06:48] VITALS: TEMP 97.7
[2018-01-18] MEDS: NICOTINE 21 MG/24 HOURS TOPICAL PATCH TD SCH (09:40)
[2018-01-18] MEDS: MAGNESIUM HYDROX 2400MG/30ML ORAL SUSPENSION 30 ML CUP PO PRN (09:43)
[2018-01-18] MEDS ORDERED: PRENATAL VITAMINS W/ FOLIC ACID TABLET (FP) PO SCH (10:00)
[2018-01-18] MEDS ORDERED: EMTRICITABINE 200MG/TENOFOVIR 300MG PO SCH (10:00)
[2018-01-18] MEDS ORDERED: RITONAVIR 100 MG TABLET PO SCH (10:00)
[2018-01-18] MEDS ORDERED: SULFAMETHOXAZOLE/TRIMETHOPRIM 800MG/160MG D.S. TABLET PO SCH (10:00)
[2018-01-18] MEDS ORDERED: DARUNAVIR ETHANOLATE 800 MG TAB PO SCH (10:00)
[2018-01-18] MEDS ORDERED: hydrOXYzine PAMOATE 50 MG CAPSULE (FP) PO PRN (10:22)
[2018-01-18 10:24] VITALS: BP 92/58; PULSE 72
[2018-01-18] MEDS ORDERED: PNEUMOC 13-VAL CONJ-DIP CRM/PF 0.5 ML DISP.SYRIN IM ONE (12:00)
--- NOTE | 2018-01-18 14:44 | PN ---
[facility] Progress Note Note: NOTIFIED BY RN MARQUISE PATIENT WAS HAVING TREMORS, ANXIETY AND WITHRAWAL SYMPTOMS. CONSIDERED ORDERING CLONIDINE BUT BP 90/52. RN INSTRUCTED TO HAVE PATIENT LIE DOWN AND INCREASE ORAL FLUIDS FOR NOW. AT SAME TIME DR. MONTEMAYOR WAS NOTIFIED OF PATIENTS STATUS AND ADJUSTED VISTARIL DOSE TO 50MG EVERY 6 HOURS PRN. AFTER APPROXIMATELY 20-30 MINUTES LATER PATIENT REQUESTED TO SIGN OUT AMA. RN OFFERED PATIENT TO SPEAK TO MEDICAL PROVIDER BUT PATIENT REFUSED AND STATED "I WANT TO LEAVE NOW". PT SIGNED OUT AMA. ARV MEDICATIONS, AZITHROMYCIN AND ALBUTEROL INHALER SENT TO [facility]
[2018-01-21] MEDS ORDERED: AZITHROMYCIN 600 MG TABLET PO SCH (10:00)
== END 2018-01-18 10:50 | disposition left against medical advice (07) | DRG 770 ==
LOC: YASAS 13:53 → Y3W 13:54
PROVIDERS: ADMIT Psychiatry & Neurology Psychiatry; ATTEND Psychiatry & Neurology Psychiatry
PROC: HZ42ZZZ Group Counseling for Substance Abuse Treatment, Cognitive-Behavioral (ICD-10-PCS; principal; 2018-01-17)
DX: F11.20 Opioid dependence, uncomplicated (principal); F10.20 Alcohol dependence, uncomplicated; F14.20 Cocaine dependence, uncomplicated; F12.20 Cannabis dependence, uncomplicated; F17.210 Nicotine dependence, cigarettes, uncomplicated; F19.24 Other psychoactive substance dependence with psychoactive substance-induced mood disorder; F19.282 Other psychoactive substance dependence with psychoactive substance-induced sleep disorder; J45.909 Unspecified asthma, uncomplicated; Z21 Asymptomatic human immunodeficiency virus [HIV] infection status

== ENCOUNTER 2018-03-15 11:15 | Inpatient (IN) | payer OTHER ==
[2018-03-15 11:38] VITALS: BMI 20.5
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
[2018-03-15] MEDS ORDERED: IBUPROFEN 400 MG TABLET (FP) PO PRN (13:48)
[2018-03-15] MEDS ORDERED: MAG HYDROX/AL HYDROX/SIMETH 30 ML UNIT-DOSE CUP PO PRN (13:48)
[2018-03-15] MEDS ORDERED: chlordiazePOXIDE HCL 25 MG CAPSULE PO PRN (13:48)
[2018-03-15] MEDS ORDERED: MAGNESIUM HYDROX 2400MG/30ML ORAL SUSPENSION 30 ML CUP PO PRN (13:48)
[2018-03-15] MEDS ORDERED: MENTHOL/PHENOL 1 EACH UD MM PRN (13:48)
[2018-03-15] MEDS ORDERED: MAGNESIUM CITRATE 300 ML BOTTLE PO PRN (13:48)
[2018-03-15] MEDS ORDERED: ACETAMINOPHEN 325 MG TABLET (FP) PO PRN (13:48)
[2018-03-15] MEDS ORDERED: LOPERAMIDE HCL 2 MG CAPSULE PO PRN (13:48)
[2018-03-15] MEDS ORDERED: P-EPHED 60MG/TRIPROLIDI 2.5MG TABLET PO PRN (13:48)
[2018-03-15] MEDS ORDERED: hydrOXYzine PAMOATE 25 MG CAPSULE (FP) PO PRN (13:48)
[2018-03-15] MEDS ORDERED: guaiFENesin/D-METHORPHAN HB 10 ML UNIT-DOSE CUPS PO PRN (13:48)
[2018-03-15] MEDS: chlordiazePOXIDE HCL 25 MG CAPSULE PO SCH ×2 (18:07→22:36)
[2018-03-15] MEDS: NICOTINE 21 MG/24 HOURS TOPICAL PATCH TD SCH (18:08)
[2018-03-15] MEDS: ALBUTEROL SO4 8 GM HFA INHALER IH PRN ×2 (18:10→22:38)
[2018-03-15] MEDS ORDERED: MELATONIN 5 MG TABLETS PO PRN (22:00)
[2018-03-15] MEDS: THIAMINE HCL 100 MG TABLET (FP) PO SCH (22:36)
[2018-03-16] MEDS: chlordiazePOXIDE HCL 25 MG CAPSULE PO SCH ×4 (05:48→22:40)
[2018-03-16 10:21] LABS: HEMATOCRIT 39.2 % (35.4-49); MCH 33.9 pg (25.7-33.7); MCHC 33.1 g/dl (32.0-35.9); MEAN CELL VOLUME 102.5 fl (80-96); MEAN PLT VOLUME 9.1 fl (7.5-11.1); PLATELET COUNT 122 K/MM3 (134-434); RBC 3.83 M/mm3 (4.00-5.60); RDW 15.2 % (11.9-15.9); WHITE BLOOD COUNT 2.4 K/mm3 (4.0-10.0)
--- NOTE | 2018-03-16 10:41 | PN ---
S CIWA - CIWA Score Nausea/Vomitin-Mild Nausea/No Vomiting Muscle Tremors: 2 Anxiety: 2 Agitation: 2 Paroxysmal Sweats: 2 Orientation: 0-Oriented Tacttile Disturbances: 0-None Auditory Disturbances: 0-None Visual Disturbances: 0-None Headache: 2-Mild CIWA-Ar Total Score: 11 BHS Progress Note (SOAP) Subjective: PATIENT C/O HEADACHE, NAUSEA, RUNNY NOSE, SHAKES AND FEELING ANXIOUS Objective: 03/16/18 10:39 Vital Signs Temperature 97.7 F 03/16/18 10:29 Pulse Rate 83 03/16/18 10:29 Respiratory Rate 18 03/16/18 10:29 Blood Pressure 105/67 03/16/18 10:29 O2 Sat by Pulse Oximetry (%) Laboratory Tests 03/16/18 06:00 WBC 2.4 L RBC 3.83 L Hgb 13.0 Hct 39.2 MCV 102.5 H MCH 33.9 H MCHC 33.1 RDW 15.2 D Plt Count 122 L MPV 9.1 SKIN + FACIAL MOISTURE CAR S1S2 RESP CTA BL EXT + TREMORS ALERT AND ORIENTED X 3 Assessment: 03/16/18 10:40 WITHDRAWAL SYNDROME Plan: CONTINUE DETOX ENCOURAGE ORAL FLUIDS CONTINUE TO MONITOR CLINICALLY ACTIFED PRN
[2018-03-16 10:43] LABS: URINE APPEARANCE CLEAR; URINE BILIRUBIN NEGATIVE (<2.0 mg/dL); URINE COLOR YELLOW; URINE GLUCOSE (UA) NEGATIVE (NEGATIVE); URINE KETONE NEGATIVE (NEGATIVE); URINE LEUK ESTERASE NEGATIVE (NEGATIVE); URINE NITRITE NEGATIVE (NEGATIVE); URINE PROTEIN NEGATIVE (NEGATIVE); URINE UROBILINOGEN NEGATIVE mg/dL (0.2-1.0)
[2018-03-16 10:48] LABS: ALBUMIN 3.1 g/dl (3.4-5.0); ALK PHOS 83 U/L (45-117); ANION GAP 6 MMOL/L (8-16); BILIRUBIN,TOTAL 0.4 mg/dL (0.2-1); BLOOD UREA NITROGEN 12 mg/dL (7-18); CALCIUM 8.8 mg/dL (8.5-10.1); CHLORIDE 102 mmol/L (98-107); CO2 29 mmol/L (21-32); CREATININE 0.8 mg/dL (0.55-1.3); GLUCOSE,RANDOM 96 mg/dL (74-106); POTASSIUM 3.5 mmol/L (3.5-5.1); SGOT/AST 43 U/L (15-37); SGPT/ALT 39 U/L (13-61); SODIUM 137 mmol/L (136-145); TOT PROT 7.4 g/dl (6.4-8.2)
[2018-03-16 10:52] LABS: URINE MUCUS RARE
[2018-03-16] MEDS: predniSONE 20 MG TABLET (UD) PO SCH (10:53)
[2018-03-16] MEDS: SULFAMETHOXAZOLE/TRIMETHOPRIM 800MG/160MG D.S. TABLET PO SCH (10:53)
[2018-03-16] MEDS: PRENATAL VITAMINS W/ FOLIC ACID TABLET (FP) PO SCH (10:53)
[2018-03-16] MEDS: NICOTINE 21 MG/24 HOURS TOPICAL PATCH TD SCH (10:55)
[2018-03-16 11:01] LABS: CALCIUM OXALATE CRYSTALS FEW /hpf (NONE SEEN)
[2018-03-16] MEDS ORDERED: FLU VACCINE QUAD 60 MCG/0.5 ML (MDV 18-19) IM ONE (12:00)
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
--- NOTE | 2018-03-16 17:31 | EKG ---
Test Reason : Blood Pressure : / mmHG Vent. Rate : 081 BPM Atrial Rate : 081 BPM P-R Int : 126 ms QRS Dur : 088 ms QT Int : 354 ms P-R-T Axes : 085 067 073 degrees QTc Int : 411 ms NORMAL SINUS RHYTHM NORMAL ECG WHEN COMPARED WITH ECG OF 12-JAN-2018 17:50, NO SIGNIFICANT CHANGE WAS FOUND BASELINE ARTIFACT Confirmed by RANDY MARTIN MD ([id number]) on 03/16/2018 5:30:30 PM Referred By: Confirmed By:RANDY MARTIN MD
[2018-03-16] MEDS: QUEtiapine FUMARATE 50 MG TABLET PO SCH (22:40)
[2018-03-16] MEDS: THIAMINE HCL 100 MG TABLET (FP) PO SCH (22:40)
[2018-03-17] MEDS: chlordiazePOXIDE HCL 25 MG CAPSULE PO SCH ×2 (06:28→10:18)
[2018-03-17] MEDS: ALBUTEROL SO4 8 GM HFA INHALER IH PRN ×2 (07:42→22:17)
[2018-03-17] MEDS: predniSONE 20 MG TABLET (UD) PO SCH (10:18)
[2018-03-17] MEDS: NICOTINE 21 MG/24 HOURS TOPICAL PATCH TD SCH (10:18)
[2018-03-17] MEDS: SULFAMETHOXAZOLE/TRIMETHOPRIM 800MG/160MG D.S. TABLET PO SCH (10:18)
[2018-03-17] MEDS: PRENATAL VITAMINS W/ FOLIC ACID TABLET (FP) PO SCH (10:18)
--- NOTE | 2018-03-17 14:10 | PN ---
[facility] CIWA - CIWA Score Nausea/Vomitin-No Nausea/No Vomiting Muscle Tremors: 3 Anxiety: 3 Agitation: 2 Paroxysmal Sweats: 1-Minimal Palms Moist Orientation: 0-Oriented Tacttile Disturbances: 1-Very Mild Itch/Numbness Auditory Disturbances: 0-None Visual Disturbances: 0-None Headache: 0-None Present CIWA-Ar Total Score: 10 S Progress Note (SOAP) Subjective: tremor shake sweat diarrhea low engery encourage bring in own HIV medications Objective: 03/17/18 14:12 Vital Signs Temperature 97.5 F L 03/17/18 10:27 Pulse Rate 84 03/17/18 10:27 Respiratory Rate 18 03/17/18 10:27 Blood Pressure 93/63 03/17/18 10:27 O2 Sat by Pulse Oximetry (%) Laboratory Last Values WBC 2.4 K/mm3 (4.0-10.0) L 03/16/18 06:00 RBC 3.83 M/mm3 (4.00-5.60) L 03/16/18 06:00 Hgb 13.0 GM/dL (11.7-16.9) 03/16/18 06:00 Hct 39.2 % (35.4-49) 03/16/18 06:00 MCV 102.5 fl (80-96) H 03/16/18 06:00 MCH 33.9 pg (25.7-33.7) H 03/16/18 06:00 MCHC 33.1 g/dl (32.0-35.9) 03/16/18 06:00 RDW 15.2 % (11.9-15.9) D 03/16/18 06:00 Plt Count 122 K/MM3 (134-434) L 03/16/18 06:00 MPV 9.1 fl (7.5-11.1) 03/16/18 06:00 Sodium 137 mmol/L (136-145) 03/16/18 06:00 Potassium 3.5 mmol/L (3.5-5.1) 03/16/18 06:00 Chloride 102 mmol/L (98-107) 03/16/18 06:00 Carbon Dioxide 29 mmol/L (21-32) 03/16/18 06:00 Anion Gap 6 MMOL/L (8-16) L 03/16/18 06:00 BUN 12 mg/dL (7-18) 03/16/18 06:00 Creatinine 0.8 mg/dL (0.55-1.3) 03/16/18 06:00 Creat Clearance w eGFR > 60 (>60) 03/16/18 06:00 Random Glucose 96 mg/dL (74-106) 03/16/18 06:00 Calcium 8.8 mg/dL (8.5-10.1) 03/16/18 06:00 Total Bilirubin 0.4 mg/dL (0.2-1) 03/16/18 06:00 AST 43 U/L (15-37) H 03/16/18 06:00 ALT 39 U/L (13-61) 03/16/18 06:00 Alkaline Phosphatase 83 U/L (45-117) 03/16/18 06:00 Total Protein 7.4 g/dl (6.4-8.2) 03/16/18 06:00 Albumin 3.1 g/dl (3.4-5.0) L 03/16/18 06:00 Urine Color Yellow 03/15/18 10:00 Urine Appearance Clear 03/15/18 10:00 Urine pH 6.0 (5.0-8.0) 03/15/18 10:00 Ur Specific [place] 1.012 (1.010-1.035) 03/15/18 10:00 Urine Protein Negative (NEGATIVE) 03/15/18 10:00 Urine Glucose (UA) Negative (NEGATIVE) 03/15/18 10:00 Urine Ketones Negative (NEGATIVE) 03/15/18 10:00 Urine Blood 1+ (NEGATIVE) H 03/15/18 10:00 Urine Nitrite Negative (NEGATIVE) 03/15/18 10:00 Urine Bilirubin Negative (<2.0 mg/dL) 03/15/18 10:00 Urine Urobilinogen Negative mg/dL (0.2-1.0) 03/15/18 10:00 Ur Leukocyte Esterase Negative (NEGATIVE) 03/15/18 10:00 Urine WBC (Auto) 2 /hpf (3-5) 03/15/18 10:00 Urine RBC (Auto) 4 /hpf (0-3) 03/15/18 10:00 Calcium Oxalate Crystal Few /hpf (NONE SEEN) 03/15/18 10:00 Urine Mucus Rare 10/05/18 10:00 RPR Titer Nonreactive (NONREACTIVE) 03/16/18 06:00 lab noted Assessment: 03/17/18 14:14 withdrawal sx Plan: continue detox
[2018-03-17] MEDS: chlordiazePOXIDE 5 MG CAPSULE PO SCH ×2 (17:13→22:17)
[2018-03-17] MEDS: THIAMINE HCL 100 MG TABLET (FP) PO SCH (22:17)
[2018-03-17] MEDS: QUEtiapine FUMARATE 50 MG TABLET PO SCH (22:17)
[2018-03-17] MEDS: CLOTRIMAZOLE 10 MG TROCHE (FP) PO SCH (23:00)
[2018-03-18] MEDS: chlordiazePOXIDE 5 MG CAPSULE PO SCH ×2 (05:36→10:43)
[2018-03-18] MEDS: CLOTRIMAZOLE 10 MG TROCHE (FP) PO SCH ×5 (05:39→22:10)
[2018-03-18 10:09] LABS: HEMATOCRIT 41.2 % (35.4-49); HEMOGLOBIN 13.8 GM/dL (11.7-16.9); MCH 33.9 pg (25.7-33.7); MCHC 33.4 g/dl (32.0-35.9); MEAN CELL VOLUME 101.4 fl (80-96); MEAN PLT VOLUME 8.6 fl (7.5-11.1); PLATELET COUNT 115 K/MM3 (134-434); RBC 4.06 M/mm3 (4.00-5.60); RDW 15.2 % (11.9-15.9)
[2018-03-18] MEDS: predniSONE 20 MG TABLET (UD) PO SCH (10:42)
[2018-03-18] MEDS: PRENATAL VITAMINS W/ FOLIC ACID TABLET (FP) PO SCH (10:42)
[2018-03-18] MEDS: SULFAMETHOXAZOLE/TRIMETHOPRIM 800MG/160MG D.S. TABLET PO SCH (10:43)
[2018-03-18] MEDS: NICOTINE 21 MG/24 HOURS TOPICAL PATCH TD SCH (10:44)
--- NOTE | 2018-03-18 13:47 | PN ---
[facility] Progress Note (SOAP) Subjective: feeling better no body ache no tremor less sweat sleep better at night Objective: 03/18/18 13:48 Vital Signs Temperature 97.9 F 03/18/18 13:02 Pulse Rate 87 03/18/18 13:02 Respiratory Rate 16 03/18/18 13:02 Blood Pressure 114/62 03/18/18 13:02 O2 Sat by Pulse Oximetry (%) Laboratory Last Values WBC 2.0 K/mm3 (4.0-10.0) L 03/18/18 07:30 RBC 4.06 M/mm3 (4.00-5.60) 03/18/18 07:30 Hgb 13.8 GM/dL (11.7-16.9) 03/18/18 07:30 Hct 41.2 % (35.4-49) 03/18/18 07:30 MCV 101.4 fl (80-96) H 03/18/18 07:30 MCH 33.9 pg (25.7-33.7) H 03/18/18 07:30 MCHC 33.4 g/dl (32.0-35.9) 03/18/18 07:30 RDW 15.2 % (11.9-15.9) 03/18/18 07:30 Plt Count 115 K/MM3 (134-434) L 03/18/18 07:30 MPV 8.6 fl (7.5-11.1) 03/18/18 07:30 Sodium 137 mmol/L (136-145) 03/16/18 06:00 Potassium 3.5 mmol/L (3.5-5.1) 03/16/18 06:00 Chloride 102 mmol/L (98-107) 03/16/18 06:00 Carbon Dioxide 29 mmol/L (21-32) 03/16/18 06:00 Anion Gap 6 MMOL/L (8-16) L 03/16/18 06:00 BUN 12 mg/dL (7-18) 03/16/18 06:00 Creatinine 0.8 mg/dL (0.55-1.3) 03/16/18 06:00 Creat Clearance w eGFR > 60 (>60) 03/16/18 06:00 Random Glucose 96 mg/dL (74-106) 03/16/18 06:00 Calcium 8.8 mg/dL (8.5-10.1) 03/16/18 06:00 Total Bilirubin 0.4 mg/dL (0.2-1) 03/16/18 06:00 AST 43 U/L (15-37) H 03/16/18 06:00 ALT 39 U/L (13-61) 03/16/18 06:00 Alkaline Phosphatase 83 U/L (45-117) 03/16/18 06:00 Total Protein 7.4 g/dl (6.4-8.2) 03/16/18 06:00 Albumin 3.1 g/dl (3.4-5.0) L 03/16/18 06:00 Urine Color Yellow 03/15/18 10:00 Urine Appearance Clear 03/15/18 10:00 Urine pH 6.0 (5.0-8.0) 03/15/18 10:00 Ur Specific [place] 1.012 (1.010-1.035) 03/15/18 10:00 Urine Protein Negative (NEGATIVE) 03/15/18 10:00 Urine Glucose (UA) Negative (NEGATIVE) 03/15/18 10:00 Urine Ketones Negative (NEGATIVE) 03/15/18 10:00 Urine Blood 1+ (NEGATIVE) H 03/15/18 10:00 Urine Nitrite Negative (NEGATIVE) 03/15/18 10:00 Urine Bilirubin Negative (<2.0 mg/dL) 03/15/18 10:00 Urine Urobilinogen Negative mg/dL (0.2-1.0) 03/15/18 10:00 Ur Leukocyte Esterase Negative (NEGATIVE) 03/15/18 10:00 Urine WBC (Auto) 2 /hpf (3-5) 03/15/18 10:00 Urine RBC (Auto) 4 /hpf (0-3) 03/15/18 10:00 Calcium Oxalate Crystal Few /hpf (NONE SEEN) 03/15/18 10:00 Urine Mucus Rare 03/15/18 10:00 RPR Titer Nonreactive (NONREACTIVE) 03/16/18 06:00 lab noted discuss hiv status and ART adherence 03/18/18 13:50 Assessment: 03/18/18 13:50 mild withdrawal sx Plan: medically supervised detox
[2018-03-18] MEDS: chlordiazePOXIDE HCL 10 MG CAPSULE PO SCH ×2 (17:19→22:10)
[2018-03-18] MEDS: ALBUTEROL SO4 8 GM HFA INHALER IH PRN (17:20)
[2018-03-18] MEDS: QUEtiapine FUMARATE 50 MG TABLET PO SCH (22:10)
[2018-03-18] MEDS: THIAMINE HCL 100 MG TABLET (FP) PO SCH (22:10)
[2018-03-19] MEDS: CLOTRIMAZOLE 10 MG TROCHE (FP) PO SCH ×2 (06:01→09:17)
[2018-03-19] MEDS: chlordiazePOXIDE HCL 10 MG CAPSULE PO SCH (06:01)
[2018-03-19] MEDS: ALBUTEROL SO4 8 GM HFA INHALER IH PRN (06:04)
[2018-03-19 06:56] VITALS: TEMP 97.9
[2018-03-19] MEDS: SULFAMETHOXAZOLE/TRIMETHOPRIM 800MG/160MG D.S. TABLET PO SCH (09:16)
[2018-03-19] MEDS: PRENATAL VITAMINS W/ FOLIC ACID TABLET (FP) PO SCH (09:16)
[2018-03-19] MEDS: predniSONE 20 MG TABLET (UD) PO SCH (09:17)
[2018-03-19 09:36] VITALS: BP 109/63; PULSE 99
--- NOTE | 2018-03-19 10:57 | DS ---
[facility] Detox Discharge Summary Admission Date: 03/15/18 Discharge Date: 03/12/18 - History Present History: Alcohol Dependence Additional Comments: 52 years old male admitted on 03/15/18 for alcohol withdrawal sx completed detox regimen tolerated well denies alcohol withdrawal sx alert oriented x 3 no acute distress aftercare [facility] - Physical Exam Results Vital Signs: Vital Signs Temperature 97.9 F 03/19/18 09:35 Pulse Rate 99 H 03/19/18 09:35 Respiratory Rate 18 03/19/18 09:35 Blood Pressure 109/63 03/19/18 09:35 O2 Sat by Pulse Oximetry (%) Pertinent Admission Physical Exam Findings: alcohol withdrawal sx Vital Signs Temperature 97.9 F 03/19/18 09:35 Pulse Rate 99 H 03/19/18 09:35 Respiratory Rate 18 03/19/18 09:35 Blood Pressure 109/63 03/19/18 09:35 O2 Sat by Pulse Oximetry (%) Laboratory Last Values WBC 2.0 K/mm3 (4.0-10.0) L 03/18/18 07:30 RBC 4.06 M/mm3 (4.00-5.60) 03/18/18 07:30 Hgb 13.8 GM/dL (11.7-16.9) 03/18/18 07:30 Hct 41.2 % (35.4-49) 03/18/18 07:30 MCV 101.4 fl (80-96) H 03/18/18 07:30 MCH 33.9 pg (25.7-33.7) H 03/18/18 07:30 MCHC 33.4 g/dl (32.0-35.9) 03/18/18 07:30 RDW 15.2 % (11.9-15.9) 03/18/18 07:30 Plt Count 115 K/MM3 (134-434) L 03/18/18 07:30 MPV 8.6 fl (7.5-11.1) 03/18/18 07:30 Sodium 137 mmol/L (136-145) 03/16/18 06:00 Potassium 3.5 mmol/L (3.5-5.1) 03/16/18 06:00 Chloride 102 mmol/L (98-107) 03/16/18 06:00 Carbon Dioxide 29 mmol/L (21-32) 03/16/18 06:00 Anion Gap 6 MMOL/L (8-16) L 03/16/18 06:00 BUN 12 mg/dL (7-18) 03/16/18 06:00 Creatinine 0.8 mg/dL (0.55-1.3) 03/16/18 06:00 Creat Clearance w eGFR > 60 (>60) 03/16/18 06:00 Random Glucose 96 mg/dL (74-106) 03/16/18 06:00 Calcium 8.8 mg/dL (8.5-10.1) 03/16/18 06:00 Total Bilirubin 0.4 mg/dL (0.2-1) 03/16/18 06:00 AST 43 U/L (15-37) H 03/16/18 06:00 ALT 39 U/L (13-61) 03/16/18 06:00 Alkaline Phosphatase 83 U/L (45-117) 03/16/18 06:00 Total Protein 7.4 g/dl (6.4-8.2) 03/16/18 06:00 Albumin 3.1 g/dl (3.4-5.0) L 03/16/18 06:00 Urine Color Yellow 03/15/18 10:00 Urine Appearance Clear 03/15/18 10:00 Urine pH 6.0 (5.0-8.0) 03/15/18 10:00 Ur Specific [place] 1.012 (1.010-1.035) 03/15/18 10:00 Urine Protein Negative (NEGATIVE) 03/15/18 10:00 Urine Glucose (UA) Negative (NEGATIVE) 03/15/18 10:00 Urine Ketones Negative (NEGATIVE) 03/15/18 10:00 Urine Blood 1+ (NEGATIVE) H 03/15/18 10:00 Urine Nitrite Negative (NEGATIVE) 03/15/18 10:00 Urine Bilirubin Negative (<2.0 mg/dL) 03/15/18 10:00 Urine Urobilinogen Negative mg/dL (0.2-1.0) 03/15/18 10:00 Ur Leukocyte Esterase Negative (NEGATIVE) 03/15/18 10:00 Urine WBC (Auto) 2 /hpf (3-5) 03/15/18 10:00 Urine RBC (Auto) 4 /hpf (0-3) 03/15/18 10:00 Calcium Oxalate Crystal Few /hpf (NONE SEEN) 03/15/18 10:00 Urine Mucus Rare 03/15/18 10:00 RPR Titer Nonreactive (NONREACTIVE) 03/16/18 06:00 lab noted patient agrees return to HIV clinic routine visit as per scheduled - Treatment Hospital Course: Detox Protocol Followed, Detoxed Safely, Responded well, Discharged Condition Good, Rehab Referral Accepted Patient has Accepted a Rehab Referral to: [facility] - Medication Discharge Medications: Ambulatory Orders Darunavir Ethanolate [Prezista -] 600 mg PO DAILY #14 tab 01/18/18 Emtricitabine/Tenofovir [Truvada -] 1 tab PO DAILY #14 tablet 01/18/18 Ritonavir [Norvir -] 100 mg PO DAILY #14 tab 01/18/18 Azithromycin [Zithromax 600mg Tablets -] 1,200 mg PO WEEKLY 03/15/18 Ipratropium [place] [Atrovent Hfa] 1 puff IH BID 03/15/18 Albuterol Sulfate [Proventil HFA Inhaler -] 2 puff IH Q6H PRN #1 hfa.aer.ad 01/26 Sulfamethoxazole/Trimethoprim [Bactrim DS -] 1 tab PO DAILY #30 tablet 03/18/18 predniSONE [Deltasone -] 20 mg PO DAILY #30 tablet 03/18/18 - Diagnosis (1) Alcohol dependence with withdrawal Current Visit: Yes Status: Acute Qualifiers: Complication of substance-induced condition: uncomplicated Qualified Code(s ): F10.230 - Alcohol dependence with withdrawal, uncomplicated (2) HIV (human immunodeficiency virus infection) Current Visit: Yes Status: Chronic (3) Asthma Current Visit: Yes Status: Chronic Qualifiers: Asthma severity: mild Asthma persistence: intermittent Asthma complication type: with status asthmaticus Qualified Code(s): J45.22 - Mild intermittent asthma with status asthmaticus (4) Nicotine dependence Current Visit: Yes Status: Acute Qualifiers: Nicotine product type: cigarettes Substance use status: in withdrawal Qualified Code(s): F17.213 - Nicotine dependence, cigarettes, with withdrawal (5) Substance induced mood disorder Current Visit: Yes Status: Suspected (6) Use of cane as ambulatory aid Current Visit: Yes Status: Chronic - AMA Did Patient Leave Against Medical Advice: No
== END 2018-03-19 09:40 | disposition home or self-care (01) | DRG 774 ==
LOC: YASAS 11:15 → Y6N 13:44
PROC: HZ2ZZZZ Detoxification Services for Substance Abuse Treatment (ICD-10-PCS; principal; 2018-03-15)
DX: F10.230 Alcohol dependence with withdrawal, uncomplicated (principal); F14.20 Cocaine dependence, uncomplicated; F17.213 Nicotine dependence, cigarettes, with withdrawal; F19.24 Other psychoactive substance dependence with psychoactive substance-induced mood disorder; F41.8 Other specified anxiety disorders; Z21 Asymptomatic human immunodeficiency virus [HIV] infection status; J45.22 Mild intermittent asthma with status asthmaticus; G47.00 Insomnia, unspecified; E86.0 Dehydration; R26.2 Difficulty in walking, not elsewhere classified; Z99.89 Dependence on other enabling machines and devices; Z87.898 Personal history of other specified conditions; Z91.5 Personal history of self-harm
CPT/HCPCS: 36415; 80053; 81003; 81015; 85027; 86593; 90688; 93005; 93010; G0008

== ENCOUNTER 2018-05-29 08:23 | Inpatient (IN) | payer OTHER ==
[2018-05-29 09:24] VITALS: BMI 20.2
--- NOTE | 2018-05-29 09:54 | HP ---
CIWA Score Nausea/Vomitin Muscle Tremors: 2 Anxiety: 2 Agitation: 2 Paroxysmal Sweats: 1-Minimal Palms Moist Orientation: 0-Oriented Tacttile Disturbances: 1-Very Mild Itch/Numbness Auditory Disturbances: 1-Very Mild Visual Disturbances: 0-None Headache: 2-Mild CIWA-Ar Total Score: 13 - Admission Criteria OASAS Guidelines: Admission for Medically Managed Detox: Requires at least one of the followin. CIWA greater than 12 2. Seizures within the past 24 hours 3. Delirium tremens within the past 24 hours 4. Hallucinations within the past 24 hours 5. Acute intervention needed for co occurring medical disorder 6. Acute intervention needed for co occurring psychiatric disorder 7. Severe withdrawal that cannot be handled at a lower level of care (continued vomiting, continued diarrhea, abnormal vital signs) requiring intravenous medication and/or fluids 8. Patient presents the following: CIWA greater than 12 Admission Criteria Met: Admission criteria met Admission ROS S - HPI Chief Complaint: i need help to stop drinking alcohol Allergies/Adverse Reactions: Allergies Allergy/AdvReac Type Severity Reaction Status Date / Time No Known Allergies Allergy Verified 03/15/18 12:42 History of Present Illness: this 52 years old male with alcohol dependence,seeking detox,seen at [facility] last night,refer for detox,receiving medication at [facility], syncope alcohol related weight loss hiv since 1999 asthma arthritis both hips nicotine dependence multiple admissions in the past ,keep relapsing,plan for rehab after detox longest period of sobriety 1 year - Ebola screening Have you traveled outside of the country in the last 21 days: No Have you had contact with anyone from an Ebola affected area: No Have you been sick,other than usual withdrawal symptoms: No - Review of Systems Constitutional: Loss of Appetite, Malaise, Night Sweats, Weakness, Unexplained wgt Loss EENT: reports: Tearing, Nose Congestion Respiratory: reports: No Symptoms reported Cardiac: reports: No Symptoms Reported GI: reports: Nausea, Poor Appetite, Abdominal cramping : reports: No Symptoms Reported Musculoskeletal: reports: Back Pain, Muscle Pain Integumentary: reports: Dryness Neuro: reports: Headache, Tremors Endocrine: reports: No Symptoms Reported Hematology: reports: No Symptoms Reported, Other (hiv) Psychiatric: reports: No Sypmtoms Reported, Judgement Intact, Mood/Affect Appropiate, Orientated x3, Depressed Patient History - Patient Medical History Hx Anemia: No Hx Asthma: Yes (on albuterol inhaler) Hx Chronic Obstructive Pulmonary Disease (COPD): No Hx Cancer: No Hx Cardiac Disorders: No Hx Congestive Heart Failure: No Hx Hypertension: No Hx Hypercholesterolemia: No Hx Pacemaker: No HX Cerebrovascular Accident: No Hx Seizures: No Hx Dementia: No Hx Diabetes: No Hx Gastrointestinal Disorders: No Hx Liver Disease: No Hx Genitourinary Disorders: No Hx Sexually Transmitted Disorders: No Hx Renal Disease (ESRD): No Hx Thyroid Disease: No Hx Human Immunodeficiency Virus (HIV): Yes (HIV dx 1999 [place], truvada or Novir non compliance) Hx Hepatitis C: No Hx Depression: Yes Hx Suicide Attempt: Yes (cut left wrist in 1985) Hx Bipolar Disorder: No Hx Schizophrenia: No Other Medical History: no suicidal,no homicidal - Patient Surgical History Past Surgical History: No Hx Neurologic Surgery: No Hx Cataract Extraction: No Hx Cardiac Surgery: No Hx Lung Surgery: No Hx Breast Surgery: No Hx Breast Biopsy: No Hx Abdominal Surgery: No Hx Appendectomy: No Hx Cholecystectomy: No Hx Genitourinary Surgery: No Hx Section: No Hx Orthopedic Surgery: No Anesthesia Reaction: No - PPD History Previous Implant?: Yes Documented Results: Negative w/proof Date: 12/14/17 Results: 0 mm PPD to be Administered?: No - Smoking Cessation Smoking history: Current every day smoker Have you smoked in the past 12 months: Yes Aproximately how many cigarettes per day: 20 Hx Chewing Tobacco Use: No Initiated information on smoking cessation: Yes 'Breaking Loose' booklet given: 05/29/18 - Substance & Tx. History Hx Alcohol Use: Yes Hx Substance Use: No Substance Use Type: Alcohol Hx Substance Use Treatment: Yes ([facility] to 03/19/18) - Substances Abused Alcohol-vodka/beer Route: Oral Frequency: Daily Amount used: 1-2 pts./3 (24 oz.) Age of first use: 16 Date of Last Use: 05/28/18 Family Disease History - Family Disease History Family Disease History: Diabetes: Mother (, alzheimers ), Other: Father ( , suicide ), Mother Admission Physical Exam [facility] - Vital Signs Vital Signs: Vital Signs - 24 hr 05/29/18 09:21 Temperature 99.1 F Pulse Rate 84 Respiratory 18 Rate Blood Pressure 118/66 - Physical General Appearance: Yes: Moderate Distress, Tremorous, Irritable, Sweating HEENTM: Yes: Normal ENT Inspection, NITHYA, Pharynx Normal Respiratory: Yes: Lungs Clear, Normal Breath Sounds, No Respiratory Distress Neck: Yes: Within Normal Limits, Supple, Trachea in good position Breast: Yes: Within Normal Limits Cardiology: Yes: Within Normal Limits, Regular Rhythm, Regular Rate, S1, S2 Abdominal: Yes: Within Normal Limits, Normal Bowel Sounds, Non Tender, Soft Genitourinary: Yes: Within Normal Limits Musculoskeletal: Yes: Back pain, Muscle Pain Extremities: Yes: Tremors Neurological: Yes: terrapin fisher II-XII NML intact, Alert, Motor Strength 5/5 Integumentary: Yes: Dry Lymphatic: Yes: Within Normal Limits - Diagnostic (1) Alcohol dependence with uncomplicated withdrawal Status: Chronic (2) Cocaine dependence Status: Chronic Qualifiers: Substance use status: uncomplicated Qualified Code(s): F14.20 - Cocaine dependence, uncomplicated (3) Dehydration Status: Acute (4) Weight loss Status: Acute (5) Asthma Status: Chronic Qualifiers: Asthma severity: mild Asthma persistence: intermittent Asthma complication type: with status asthmaticus Qualified Code(s): J45.22 - Mild intermittent asthma with status asthmaticus (6) HIV (human immunodeficiency virus infection) Status: Chronic (7) Use of cane as ambulatory aid Status: Chronic (8) Vertigo Status: Acute Cleared for Admission [facility] - Detox or Rehab [facility] Level of Care: Medically Managed Detox Regimen/Protocol: Librium [facility] Breath Alcohol Content Breath Alcohol Content: 0 Urine Drug Screen - Results Drug Screen Negative: No Urine Drug Screen Results: BZO-Benzodiazepines
[2018-05-29] MEDS ORDERED: MAG HYDROX/AL HYDROX/SIMETH 30 ML UNIT-DOSE CUP PO PRN (10:09)
[2018-05-29] MEDS ORDERED: MENTHOL/PHENOL 1 EACH UD MM PRN (10:09)
[2018-05-29] MEDS ORDERED: chlordiazePOXIDE HCL 25 MG CAPSULE PO PRN (10:09)
[2018-05-29] MEDS ORDERED: NICOTINE POLACRILEX 2 MG GUM BC PRN (10:09)
[2018-05-29] MEDS ORDERED: IBUPROFEN 400 MG TABLET (FP) PO PRN (10:09)
[2018-05-29] MEDS ORDERED: P-EPHED 60MG/TRIPROLIDI 2.5MG TABLET PO PRN (10:09)
[2018-05-29] MEDS ORDERED: guaiFENesin/D-METHORPHAN HB 10 ML UNIT-DOSE CUPS PO PRN (10:09)
[2018-05-29] MEDS ORDERED: MAGNESIUM HYDROX 2400MG/30ML ORAL SUSPENSION 30 ML CUP PO PRN (10:09)
[2018-05-29] MEDS ORDERED: LOPERAMIDE HCL 2 MG CAPSULE PO PRN (10:09)
[2018-05-29] MEDS ORDERED: MAGNESIUM CITRATE 300 ML BOTTLE PO PRN (10:09)
[2018-05-29] MEDS ORDERED: ACETAMINOPHEN 325 MG TABLET (FP) PO PRN (10:09)
[2018-05-29] MEDS ORDERED: ALBUTEROL SO4 8 GM HFA INHALER IH PRN (10:12)
[2018-05-29] MEDS: NICOTINE 21 MG/24 HOURS TOPICAL PATCH TD SCH (11:45)
[2018-05-29] MEDS: chlordiazePOXIDE HCL 25 MG CAPSULE PO SCH ×3 (11:45→22:40)
[2018-05-29] MEDS: MECLIZINE HCL 12.5 MG TABLET PO SCH ×2 (15:36→22:40)
[2018-05-29] MEDS: MELATONIN 5 MG TABLETS PO PRN (22:40)
[2018-05-29] MEDS: THIAMINE HCL 100 MG TABLET (FP) PO SCH (22:40)
[2018-05-30] MEDS: MECLIZINE HCL 12.5 MG TABLET PO SCH ×3 (06:11→22:23)
[2018-05-30] MEDS: chlordiazePOXIDE HCL 25 MG CAPSULE PO SCH ×4 (06:11→22:23)
[2018-05-30 10:20] LABS: HEMATOCRIT 40.3 % (35.4-49); HEMOGLOBIN 13.1 GM/dL (11.7-16.9); MCH 32.8 pg (25.7-33.7); MCHC 32.4 g/dl (32.0-35.9); MEAN CELL VOLUME 101.1 fl (80-96); MEAN PLT VOLUME 11.4 fl (7.5-11.1); PLATELET COUNT 96 K/MM3 (134-434); RBC 3.98 M/mm3 (4.00-5.60); RDW 13.4 % (11.9-15.9); WHITE BLOOD COUNT 2.2 K/mm3 (4.0-10.0)
[2018-05-30 10:30] LABS: ALBUMIN 3.2 g/dl (3.4-5.0); ALK PHOS 117 U/L (45-117); ANION GAP 7 MMOL/L (8-16); BILIRUBIN,TOTAL 0.6 mg/dL (0.2-1); BLOOD UREA NITROGEN 13 mg/dL (7-18); CHLORIDE 108 mmol/L (98-107); CO2 23 mmol/L (21-32); CREATININE 0.8 mg/dL (0.55-1.3); GLUCOSE,RANDOM 98 mg/dL (74-106); POTASSIUM 3.5 mmol/L (3.5-5.1); SGOT/AST 58 U/L (15-37); SGPT/ALT 59 U/L (13-61); SODIUM 138 mmol/L (136-145); TOT PROT 7.2 g/dl (6.4-8.2)
[2018-05-30] MEDS: NICOTINE 21 MG/24 HOURS TOPICAL PATCH TD SCH (11:00)
[2018-05-30] MEDS: PRENATAL VITAMINS W/ FOLIC ACID TABLET (FP) PO SCH (11:00)
--- NOTE | 2018-05-30 11:30 | PN ---
[facility] CIWA - CIWA Score Nausea/Vomitin-No Nausea/No Vomiting Muscle Tremors: 3 Anxiety: 3 Agitation: 3 Paroxysmal Sweats: 3 Orientation: 0-Oriented Tacttile Disturbances: 0-None Auditory Disturbances: 0-None Visual Disturbances: 0-None Headache: 0-None Present CIWA-Ar Total Score: 12 S Progress Note (SOAP) Subjective: tired weak sweats interrupted sleep Objective: 05/30/18 11:26 Vital Signs Temperature 98.0 F 05/30/18 09:14 Pulse Rate 74 05/30/18 09:14 Respiratory Rate 18 05/30/18 09:14 Blood Pressure 98/59 L 05/30/18 09:14 O2 Sat by Pulse Oximetry (%) Laboratory Tests 05/30/18 05/30/18 05:45 05:45 WBC 2.2 L RBC 3.98 L Hgb 13.1 Hct 40.3 MCV 101.1 H MCH 32.8 MCHC 32.4 RDW 13.4 D Plt Count 96 L MPV 11.4 H D Sodium 138 Potassium 3.5 Chloride 108 H Carbon Dioxide 23 Anion Gap 7 L BUN 13 Creatinine 0.8 Creat Clearance w eGFR > 60 Random Glucose 98 Calcium 8.0 L Total Bilirubin 0.6 AST 58 H ALT 59 Alkaline Phosphatase 117 Total Protein 7.2 Albumin 3.2 L aaox3 ambulating no acute distress Assessment: 05/30/18 11:30 withdrawal sx Plan: continue detox increase fluids
[2018-05-30] MEDS: THIAMINE HCL 100 MG TABLET (FP) PO SCH (22:23)
[2018-05-31] MEDS: MECLIZINE HCL 12.5 MG TABLET PO SCH ×3 (06:23→22:17)
[2018-05-31] MEDS: chlordiazePOXIDE HCL 25 MG CAPSULE PO SCH (06:23)
[2018-05-31] MEDS: PRENATAL VITAMINS W/ FOLIC ACID TABLET (FP) PO SCH (10:22)
[2018-05-31] MEDS: chlordiazePOXIDE 5 MG CAPSULE PO SCH ×3 (10:22→22:17)
[2018-05-31] MEDS: NICOTINE 21 MG/24 HOURS TOPICAL PATCH TD SCH (10:22)
--- NOTE | 2018-05-31 10:49 | PN ---
S CIWA - CIWA Score Nausea/Vomitin Muscle Tremors: 2 Anxiety: 2 Agitation: 1-Slight > Activity Paroxysmal Sweats: 3 Orientation: 0-Oriented Tacttile Disturbances: 1-Very Mild Itch/Numbness Auditory Disturbances: 0-None Visual Disturbances: 0-None Headache: 0-None Present CIWA-Ar Total Score: 11 S Progress Note (SOAP) Subjective: interrupted sleep, sweats, chills, , f Objective: 05/31/18 10:47 Vital Signs Temperature 97.7 F 05/31/18 09:02 Pulse Rate 75 05/31/18 09:02 Respiratory Rate 18 05/31/18 09:02 Blood Pressure 104/51 L 05/31/18 09:02 O2 Sat by Pulse Oximetry (%) Laboratory Tests 05/30/18 05/30/18 05/30/18 05:45 05:45 05:45 WBC 2.2 L RBC 3.98 L Hgb 13.1 Hct 40.3 MCV 101.1 H MCH 32.8 MCHC 32.4 RDW 13.4 D Plt Count 96 L MPV 11.4 H D Sodium 138 Potassium 3.5 Chloride 108 H Carbon Dioxide 23 Anion Gap 7 L BUN 13 Creatinine 0.8 Creat Clearance w eGFR > 60 Random Glucose 98 Calcium 8.0 L Total Bilirubin 0.6 AST 58 H ALT 59 Alkaline Phosphatase 117 Total Protein 7.2 Albumin 3.2 L RPR Titer Nonreactive pt aox3 in nad lying in bed Assessment: 05/31/18 10:47 withdrawal sx's Plan: cont. detox increase fluids
[2018-05-31] MEDS: MELATONIN 5 MG TABLETS PO PRN (22:16)
[2018-05-31] MEDS: THIAMINE HCL 100 MG TABLET (FP) PO SCH (22:17)
[2018-06-01] MEDS: chlordiazePOXIDE 5 MG CAPSULE PO SCH (05:31)
[2018-06-01] MEDS: MECLIZINE HCL 12.5 MG TABLET PO SCH (05:31)
--- NOTE | 2018-06-01 08:43 | DS ---
[facility] Detox Discharge Summary Admission Date: 05/29/18 Discharge Date: 06/01/18 - History Present History: Alcohol Dependence, Cannabis Dependence, Cocaine Dependence - Physical Exam Results Vital Signs: Vital Signs Temperature 98.2 F 06/01/18 06:34 Pulse Rate 77 06/01/18 06:34 Respiratory Rate 18 06/01/18 06:34 Blood Pressure 103/60 06/01/18 06:34 O2 Sat by Pulse Oximetry (%) - Treatment Hospital Course: Detox Protocol Followed, Detoxed Safely, Responded well, Discharged Condition Good, Rehab Referral Accepted - Medication Discharge Medications: Ambulatory Orders Darunavir Ethanolate [Prezista -] 600 mg PO DAILY #14 tab 01/18/18 Emtricitabine/Tenofovir [Truvada -] 1 tab PO DAILY #14 tablet 01/18/18 Ritonavir [Norvir -] 100 mg PO DAILY #14 tab 01/18/18 Azithromycin [Zithromax 600mg Tablets -] 1,200 mg PO WEEKLY 03/15/18 Albuterol Sulfate Inhaler - [Ventolin Hfa Inhaler -] 2 inh PO Q4H PRN 05/29/18 Esomeprazole Magnesium 40 mg PO BID 05/29/18 Folic Acid - 1 mg PO DAILY 05/29/18 Meclizine HCl 12.5 mg PO TID 05/29/18 Multivitamins [Tab-A-Vit -] 1 tab PO DAILY 05/29/18 - Diagnosis (1) Cocaine dependence Current Visit: Yes Status: Chronic Qualifiers: Substance use status: uncomplicated Qualified Code(s): F14.20 - Cocaine dependence, uncomplicated (2) Depressed mood Current Visit: Yes Status: Acute (3) Leukopenia Current Visit: Yes Status: Acute Qualifiers: Leukopenia type: unspecified Qualified Code(s): D72.819 - Decreased white blood cell count, unspecified (4) Marijuana dependence Current Visit: Yes Status: Chronic (5) Vertigo Current Visit: Yes Status: Acute (6) Alcohol dependence with uncomplicated withdrawal Current Visit: Yes Status: Chronic (7) Cannabis dependence Current Visit: Yes Status: Chronic (8) Dehydration Current Visit: No Status: Acute (9) Fracture of thumb Current Visit: No Status: Acute Qualifiers: Laterality: right (10) Insomnia Current Visit: No Status: Acute (11) Nicotine dependence Current Visit: Yes Status: Chronic Qualifiers: Nicotine product type: cigarettes Substance use status: uncomplicated Qualified Code(s): F17.210 - Nicotine dependence, cigarettes, uncomplicated (12) Opioid dependence with withdrawal Current Visit: Yes Status: Chronic (13) Substance-induced sleep disorder Current Visit: No Status: Acute (14) Thrombocytopenia Current Visit: No Status: Acute (15) Weight loss Current Visit: No Status: Acute (16) Anxiety and depression Current Visit: No Status: Chronic (17) Asthma Current Visit: No Status: Chronic Qualifiers: Asthma severity: mild Asthma persistence: intermittent Asthma complication type: with status asthmaticus Qualified Code(s): J45.22 - Mild intermittent asthma with status asthmaticus (18) HIV (human immunodeficiency virus infection) Current Visit: No Status: Chronic (19) Hypotension Current Visit: No Status: Chronic Qualifiers: Hypotension type: unspecified hypotension type Qualified Code(s): I95.9 - Hypotension, unspecified (20) Use of cane as ambulatory aid Current Visit: No Status: Chronic (21) Substance induced mood disorder Current Visit: No Status: Suspected - AMA Did Patient Leave Against Medical Advice: No (going home)
[2018-06-01 09:54] VITALS: BP 101/59; PULSE 82; TEMP 97.7
[2018-06-01] MEDS ORDERED: chlordiazePOXIDE HCL 10 MG CAPSULE PO SCH (11:00)
[2018-06-04] MEDS ORDERED: AZITHROMYCIN 600 MG TABLET PO SCH (10:00)
== END 2018-06-01 09:20 | disposition home or self-care (01) | DRG 773 ==
LOC: YASAS 08:23 → Y3N 09:55 → Y6N 11:29
PROC: HZ2ZZZZ Detoxification Services for Substance Abuse Treatment (ICD-10-PCS; principal; 2018-05-29)
DX: F11.23 Opioid dependence with withdrawal (principal); F10.230 Alcohol dependence with withdrawal, uncomplicated; F14.20 Cocaine dependence, uncomplicated; F12.20 Cannabis dependence, uncomplicated; F17.210 Nicotine dependence, cigarettes, uncomplicated; F32.9 Major depressive disorder, single episode, unspecified; F19.282 Other psychoactive substance dependence with psychoactive substance-induced sleep disorder; F41.8 Other specified anxiety disorders; D72.819 Decreased white blood cell count, unspecified; E86.0 Dehydration; G47.00 Insomnia, unspecified; D69.6 Thrombocytopenia, unspecified; J45.22 Mild intermittent asthma with status asthmaticus; I95.9 Hypotension, unspecified; Z21 Asymptomatic human immunodeficiency virus [HIV] infection status; R42 Dizziness and giddiness; R26.2 Difficulty in walking, not elsewhere classified; Z99.89 Dependence on other enabling machines and devices; Z91.14 Patient's other noncompliance with medication regimen; Z91.5 Personal history of self-harm
CPT/HCPCS: 36415; 80053; 85027; 86593

== ENCOUNTER 2018-09-16 09:58 | Inpatient (IN) | payer OTHER ==
[2018-09-16 11:29] VITALS: BMI 19.0
--- NOTE | 2018-09-16 12:50 | HP ---
CIWA Score Nausea/Vomitin-No Nausea/No Vomiting Muscle Tremors: 2 Anxiety: 2 Agitation: 0-Normal Activity Paroxysmal Sweats: 1-Minimal Palms Moist Orientation: 0-Oriented Tacttile Disturbances: 0-None Auditory Disturbances: 1-Very Mild Visual Disturbances: 1-Very Mild Sensitivity Headache: 3-Moderate (rates 5/10) CIWA-Ar Total Score: 10 - Admission Criteria OASAS Guidelines: Admission for Medically Managed Detox: Requires at least one of the followin. CIWA greater than 12 2. Seizures within the past 24 hours 3. Delirium tremens within the past 24 hours 4. Hallucinations within the past 24 hours 5. Acute intervention needed for co occurring medical disorder 6. Acute intervention needed for co occurring psychiatric disorder 7. Severe withdrawal that cannot be handled at a lower level of care (continued vomiting, continued diarrhea, abnormal vital signs) requiring intravenous medication and/or fluids 8. Patient presents the following: Acute intervention needed for co-occurring med or psych disorder Admission Criteria Met: Admission criteria met [facility] Chief Complaint: " My ID doctor told me come to detox " Allergies/Adverse Reactions: Allergies Allergy/AdvReac Type Severity Reaction Status Date / Time No Known Allergies Allergy Verified 03/15/18 12:42 History of Present Illness: Patient is a 53 year old male, currently resides in assisted, with history of alcohol, nicotine and cocaine dependence is here seeking alcohol detox. Patient reports his HIV specialist send him to detox. Last detox at [facility] two months, reports recent relapse. Reports currently drinks 24 oz x 5 cans of beer per day, reports drinking current amount for a "couple of years." PMHX: HIV since 1999 asthma, arthritis both hips, syncope alcohol two months ago, weight loss, nicotine dependence. Psych: depression, not linked to mental vickie. Reports past hx of suicide attempt in 1985, denies suicidal / homicidal ideation at this time Longest period of sobriety 1 year. Exam Limitations: No Limitations - Ebola screening Have you traveled outside of the country in the last 21 days: No Have you had contact with anyone from an Ebola affected area: No - Review of Systems Constitutional: Loss of Appetite, Night Sweats, Unintentional Wgt. Loss (20 lbs in past months) EENT: reports: No Symptoms Reported Respiratory: reports: No Symptoms reported Cardiac: reports: No Symptoms Reported GI: reports: Poor Appetite, Poor Fluid Intake : reports: No Symptoms Reported Musculoskeletal: reports: No Symptoms Reported Integumentary: reports: Dryness Neuro: reports: Headache Endocrine: reports: Increased Thirst, Change in Weight Hematology: reports: See HPI Psychiatric: reports: Orientated x3, Depressed Other Systems: Reviewed and Negative Patient History - Patient Medical History Hx Anemia: No Hx Asthma: Yes (on albuterol inhaler) Hx Chronic Obstructive Pulmonary Disease (COPD): No Hx Cancer: No Hx Cardiac Disorders: No Hx Congestive Heart Failure: No Hx Hypertension: No Hx Hypercholesterolemia: No Hx Pacemaker: No HX Cerebrovascular Accident: No Hx Seizures: No Hx Dementia: No Hx Diabetes: No Hx Gastrointestinal Disorders: No Hx Liver Disease: No Hx Genitourinary Disorders: No Hx Sexually Transmitted Disorders: No Hx Renal Disease (ESRD): No Hx Thyroid Disease: No Hx Human Immunodeficiency Virus (HIV): Yes (HIV dx 2000 [place], truvada or Novir non compliance) Hx Hepatitis C: No Hx Depression: Yes Hx Suicide Attempt: Yes (cut left wrist in 1985) Hx Bipolar Disorder: No Hx Schizophrenia: No - Patient Surgical History Past Surgical History: No Hx Neurologic Surgery: No Hx Cataract Extraction: No Hx Cardiac Surgery: No Hx Lung Surgery: No Hx Breast Surgery: No Hx Breast Biopsy: No Hx Abdominal Surgery: No Hx Appendectomy: No Hx Cholecystectomy: No Hx Genitourinary Surgery: No Hx Section: No Hx Orthopedic Surgery: No Anesthesia Reaction: No - PPD History Previous Implant?: No Documented Results: Negative w/proof Date: 12/14/17 Results: 0 mm PPD to be Administered?: No - Smoking Cessation Smoking history: Current every day smoker Have you smoked in the past 12 months: Yes Aproximately how many cigarettes per day: 20 Hx Chewing Tobacco Use: No Initiated information on smoking cessation: Yes 'Breaking Loose' booklet given: 09/16/18 - Substance & Tx. History Hx Alcohol Use: Yes Hx Substance Use: Yes Substance Use Type: Alcohol, Cocaine Hx Substance Use Treatment: Yes (Last detox [facility] two months ago ) - Substances abused Alcohol Substance route: Oral Frequency: Daily Amount used: 24 oz x 5 cans of beer Age of first use: 18 Date of last use: 09/15/18 Crack Substance route: Smoking Frequency: Daily Amount used: $80 daily Age of first use: 18 Date of last use: 09/15/18 Family Disease History - Family Disease History Family Disease History: Diabetes: Mother (, alzheimers ), Other: Father ( , suicide ), Mother [facility] Vital Signs Vital Signs: Vital Signs - 24 hr 09/16/18 09/16/18 11:21 12:34 Temperature 98.6 F 98.6 F Pulse Rate 89 89 Respiratory 18 18 Rate Blood Pressure 108/67 108/67 - Physical General Appearance: Yes: Disheveled (unkempt), Thin, Anxious HEENTM: Yes: EOMI, Hearing grossly Normal, Normal ENT Inspection, Normocephalic , Normal Voice, NITHYA, Pharynx Normal, Tm's normal, Other (poor dentition, cheilitis) Respiratory: Yes: Chest Non-Tender, Lungs Clear, Normal Breath Sounds, No Respiratory Distress, No Accessory Muscle Use Neck: Yes: Within Normal Limits Breast: Yes: Breast Exam Deferred Cardiology: Yes: Regular Rhythm, Regular Rate Abdominal: Yes: Normal Bowel Sounds, Non Tender, Flat, Soft Genitourinary: Yes: Within Normal Limits Back: Yes: Normal Inspection Musculoskeletal: Yes: full range of Motion, Gait Steady, Pelvis Stable Extremities: Yes: Normal Capillary Refill, Normal Inspection, Normal Range of Motion, Non-Tender Neurological: Yes: crime data specialist II-XII NML intact, Fully Oriented, Alert, Motor Strength 5/5, Depressed Affect Integumentary: Yes: Normal Color, Warm, Diaphoresis, Other (+Onychomycosis b/l hands) Lymphatic: Yes: Within Normal Limits - Diagnostic (1) Dehydration Current Visit: Yes Status: Acute (2) Weight loss Current Visit: Yes Status: Acute (3) Alcohol dependence with uncomplicated withdrawal Current Visit: Yes Status: Chronic (4) Asthma Current Visit: Yes Status: Chronic Qualifiers: Asthma severity: mild Asthma persistence: intermittent Asthma complication type: with status asthmaticus Qualified Code(s): J45.22 - Mild intermittent asthma with status asthmaticus (5) Cocaine dependence Current Visit: Yes Status: Chronic Qualifiers: Substance use status: uncomplicated Qualified Code(s): F14.20 - Cocaine dependence, uncomplicated (6) HIV (human immunodeficiency virus infection) Current Visit: Yes Status: Chronic Cleared for Admission [facility] Level of Care: Medically Managed Detox Regimen/Protocol: Librium Breathalyzer - Breathalyzer Breathalyzer: 0.052 Urine Drug Screen - Test Device Lot number: [id number] Expiration date: 05/10/20 - Control Is test valid?: Yes - Results Drug screen NEGATIVE: No Urine drug screen results: [facility] Inpatient Rehab Admission - Rehab Decision to Admit Inpatient rehab admission?: No
[2018-09-16] MEDS ORDERED: ALBUTEROL SO4 8 GM HFA INHALER IH PRN (12:54)
[2018-09-16] MEDS ORDERED: chlordiazePOXIDE HCL 10 MG CAPSULE PO PRN (12:59)
[2018-09-16] MEDS ORDERED: METHOCARBAMOL 500 MG TABLET PO PRN (12:59)
[2018-09-16] MEDS ORDERED: hydrOXYzine PAMOATE 25 MG CAPSULE (FP) PO PRN (12:59)
[2018-09-16] MEDS ORDERED: BISMUTH SUBSALICYLATE 262 MG/15 ML BTL PO PRN (12:59)
[2018-09-16] MEDS ORDERED: ACETAMINOPHEN 325 MG TABLET (FP) PO PRN (12:59)
[2018-09-16] MEDS ORDERED: IBUPROFEN 400 MG TABLET (FP) PO PRN (12:59)
[2018-09-16] MEDS ORDERED: MAGNESIUM HYDROX 2400MG/30ML ORAL SUSPENSION 30 ML CUP PO PRN (12:59)
[2018-09-16] MEDS ORDERED: NICOTINE POLACRILEX 2 MG GUM BUC PRN (12:59)
[2018-09-16] MEDS ORDERED: MAG HYDROX/AL HYDROX/SIMETH 30 ML UNIT-DOSE CUP PO PRN (12:59)
[2018-09-16] MEDS ORDERED: MENTHOL/PHENOL 1 EACH UD MM PRN (12:59)
[2018-09-16] MEDS ORDERED: MAGNESIUM CITRATE 300 ML BOTTLE PO PRN (12:59)
[2018-09-16] MEDS: chlordiazePOXIDE HCL 25 MG CAPSULE PO SCH ×2 (13:55→22:29)
[2018-09-16 17:11] LABS: HEMATOCRIT 38.6 % (35.4-49); HEMOGLOBIN 13.3 GM/dL (11.7-16.9); MCH 35.1 pg (25.7-33.7); MCHC 34.5 g/dl (32.0-35.9); MEAN CELL VOLUME 101.6 fl (80-96); MEAN PLT VOLUME 9.4 fl (7.5-11.1); PLATELET COUNT 68 K/MM3 (134-434); RDW 14.9 % (11.9-15.9)
[2018-09-16 17:16] LABS: WHITE BLOOD COUNT 1.8 K/mm3 (4.0-10.0)
[2018-09-16 17:21] LABS: ALBUMIN 3.3 g/dl (3.4-5.0); ALK PHOS 100 U/L (45-117); ANION GAP 8 MMOL/L (8-16); BILIRUBIN,TOTAL 0.5 mg/dL (0.2-1); BLOOD UREA NITROGEN 10 mg/dL (7-18); CALCIUM 8.7 mg/dL (8.5-10.1); CHLORIDE 98 mmol/L (98-107); CO2 25 mmol/L (21-32); CREATININE 0.7 mg/dL (0.55-1.3); GLUCOSE,RANDOM 84 mg/dL (74-106); POTASSIUM 3.6 mmol/L (3.5-5.1); SGOT/AST 107 U/L (15-37); SGPT/ALT 61 U/L (13-61); SODIUM 131 mmol/L (136-145); TOT PROT 7.4 g/dl (6.4-8.2)
[2018-09-16] MEDS: MELATONIN 5 MG TABLETS PO PRN (22:29)
[2018-09-16] MEDS: THIAMINE HCL 100 MG TABLET (FP) PO SCH (22:29)
[2018-09-17] MEDS: chlordiazePOXIDE HCL 25 MG CAPSULE PO SCH (06:20)
--- NOTE | 2018-09-17 09:10 | CONSULT ---
[facility] Psychiatric Consult - Data Date of interview: 09/17/28 Admission source: [facility] Identifying data: Patient is a 53 year old single male, without children, unemployed, domiciled, and is supported by [facility] This is one of multiple admissions to detox at [facility]. Patient admitted to for alcohol dependence. Substance Abuse History: Smoking Cessation. Smoking history: Current every day smoker. Have you smoked in the past 12 months: Yes. Aproximately how many cigarettes per day: 20. Hx Chewing Tobacco Use: No. Initiated information on smoking cessation: Yes. 'Breaking Loose' booklet given: 09/16/18. - Substance & Tx. History. Hx Alcohol Use: Yes. Hx Substance Use: Yes. Substance Use Type : Alcohol, Cocaine. Hx Substance Use Treatment: Yes (Last detox [facility] two months ago ). - Substances abused. Alcohol. Substance route: Oral. Frequency: Daily. Amount used: 24 oz x 5 cans of beer. Age of first use: 18. Date of last use: 09/15/18. Crack. Substance route: Smoking. Frequency: Daily. Amount used: $80 daily. Age of first use: 18. Date of last use: Medical History: Asthma, HIV Psychiatric History: Patient denies h/o psychiatric hospitalization. States he was provided with outpatient psychiatric care at [facility] outpatient clinic and was prescribed seroquel 600mg but has not accepted medication nor seen his psychiatrist in approxiomately 8 months. Self reports diagnosis of depression. Ms. Haas reports h/o one episode of self multilation behavior of cutting his right wrist in 1985. He reports past h/o hallucination in the context of substance abuse. At present he reports poor sleep. No psychosis noted. Physical/Sexual Abuse/Trauma History: denies. Mental Status Exam - Mental Status Exam Alert and Oriented to: Time, Place, Person Cognitive Function: Good Patient Appearance: Well Groomed Mood: Sad Affect: Mood Congruent Patient Behavior: Fatigued, Cooperative Speech Pattern: Appropriate Voice Loudness: Moderately Soft/Quiet Thought Process: Goal Oriented Thought Disorder: Not Present Hallucinations: Denies Suicidal Ideation: Denies Homicidal Ideation: Denies Insight/Judgement: Poor Sleep: Poorly Appetite: Fair Muscle strength/Tone: Normal Gait/Station: Other (ambulates with a cane.) Psychiatric Findings - Problem List (Hooks 1, 2,3) (1) Alcohol dependence with uncomplicated withdrawal Current Visit: Yes Status: Acute (2) Cocaine dependence Current Visit: Yes Status: Chronic Qualifiers: Substance use status: uncomplicated Qualified Code(s): F14.20 - Cocaine dependence, uncomplicated (3) Substance induced mood disorder Current Visit: Yes Status: Acute (4) Substance-induced sleep disorder Current Visit: Yes Status: Acute - Initial Treatment Plan Initial Treatment Plan: Psychoeducation provided. Detoxification in progress. Will order Seroquel 50mg HS. Benefits and side effects discussed. Verbal consent given.
[2018-09-17] MEDS: ACETAMINOPHEN 325 MG TABLET (FP) PO PRN ×2 (09:37→15:50)
--- NOTE | 2018-09-17 09:44 | PN ---
[facility] CIWA - CIWA Score Nausea/Vomitin-No Nausea/No Vomiting Muscle Tremors: 3 Anxiety: 3 Agitation: 2 Paroxysmal Sweats: 1-Minimal Palms Moist Orientation: 1-Uncertain about Date Tacttile Disturbances: 0-None Auditory Disturbances: 0-None Visual Disturbances: 0-None Headache: 0-None Present CIWA-Ar Total Score: 10 S Progress Note (SOAP) Subjective: reporting low grade fever on and off for a while in and out the hospital for respiratory distress breathing ease and even lung diminished right and left lower lobs no coughing skin warm dry alert oriented to place and person patient preferring not to go the ER agrees to trial of tylenal and clindamycin and chest x ray and oral fluid Objective: 09/17/18 09:50 Vital Signs Temperature 100.9 F H 09/17/18 09:05 Pulse Rate 98 H 09/17/18 09:05 Respiratory Rate 18 09/17/18 09:05 Blood Pressure 116/68 09/17/18 09:05 O2 Sat by Pulse Oximetry (%) Laboratory Last Values WBC 1.8 K/mm3 (4.0-10.0) L* 09/16/18 13:00 RBC 3.80 M/mm3 (4.00-5.60) L 09/16/18 13:00 Hgb 13.3 GM/dL (11.7-16.9) 09/16/18 13:00 Hct 38.6 % (35.4-49) 09/16/18 13:00 MCV 101.6 fl (80-96) H 09/16/18 13:00 MCH 35.1 pg (25.7-33.7) H 09/16/18 13:00 MCHC 34.5 g/dl (32.0-35.9) 09/16/18 13:00 RDW 14.9 % (11.9-15.9) D 09/16/18 13:00 Plt Count 68 K/MM3 (134-434) L D 09/16/18 13:00 MPV 9.4 fl (7.5-11.1) D 09/16/18 13:00 Sodium 131 mmol/L (136-145) L 09/16/18 13:00 Potassium 3.6 mmol/L (3.5-5.1) 09/16/18 13:00 Chloride 98 mmol/L (98-107) 09/16/18 13:00 Carbon Dioxide 25 mmol/L (21-32) 09/16/18 13:00 Anion Gap 8 MMOL/L (8-16) 09/16/18 13:00 BUN 10 mg/dL (7-18) 09/16/18 13:00 Creatinine 0.7 mg/dL (0.55-1.3) 09/16/18 13:00 Creat Clearance w eGFR 118.43 (>60) 09/16/18 13:00 Random Glucose 84 mg/dL (74-106) 09/16/18 13:00 Calcium 8.7 mg/dL (8.5-10.1) 09/16/18 13:00 Total Bilirubin 0.5 mg/dL (0.2-1) 09/16/18 13:00 AST 107 U/L (15-37) H 09/16/18 13:00 ALT 61 U/L (13-61) 09/16/18 13:00 Alkaline Phosphatase 100 U/L (45-117) 09/16/18 13:00 Total Protein 7.4 g/dl (6.4-8.2) 09/16/18 13:00 Albumin 3.3 g/dl (3.4-5.0) L 09/16/18 13:00 RPR Titer Nonreactive (NONREACTIVE) 09/16/18 13:00 lab noted 09/17/18 09:51 patient acknowledge low wbc and is following up with his infectious disease specialist preferring librium for alcohol detox regimen repeat ast Assessment: 09/17/18 09:53 alcohol withdrawal sx Plan: continue detox continue monitoring temperature oral hydration
[2018-09-17] MEDS ORDERED: SULFAMETHOXAZOLE/TRIMETHOPRIM 800MG/160MG D.S. TABLET PO SCH (10:00)
[2018-09-17] MEDS: NICOTINE 14 MG/24 HOURS TOPICAL PATCH TD SCH (10:26)
[2018-09-17] MEDS: PRENATAL VITAMINS W/ FOLIC ACID TABLET (FP) PO SCH (10:26)
[2018-09-17] MEDS: BUDESONIDE/FORMETEROL FUMARATE 80/4.5 mcg INHALER IH SCH ×2 (10:28→22:05)
[2018-09-17] MEDS: CEFUROXIME AXETIL 500 MG TABLET PO SCH ×2 (10:37→22:06)
[2018-09-17] MEDS ORDERED: CLINDAMYCIN HCL 150 MG CAPSULE (FP) PO SCH (14:00)
[2018-09-17] MEDS: chlordiazePOXIDE 5 MG CAPSULE PO SCH ×2 (14:10→22:05)
[2018-09-17] MEDS ORDERED: hydrOXYzine HCL 25 MG TABLET (FP) PO PRN (18:53)
[2018-09-17] MEDS: THIAMINE HCL 100 MG TABLET (FP) PO SCH (22:05)
[2018-09-17] MEDS: QUEtiapine FUMARATE 50 MG TABLET PO SCH (22:05)
[2018-09-17] MEDS: MELATONIN 5 MG TABLETS PO PRN (22:06)
[2018-09-18] MEDS: chlordiazePOXIDE 5 MG CAPSULE PO SCH (05:36)
[2018-09-18 10:01] LABS: ALK PHOS 96 U/L (45-117); ANION GAP 7 MMOL/L (8-16); BILIRUBIN,TOTAL 0.4 mg/dL (0.2-1); BLOOD UREA NITROGEN 12 mg/dL (7-18); CHLORIDE 100 mmol/L (98-107); CO2 29 mmol/L (21-32); CREATININE 0.6 mg/dL (0.55-1.3); GLUCOSE,RANDOM 109 mg/dL (74-106); POTASSIUM 3.8 mmol/L (3.5-5.1); SGOT/AST 64 U/L (15-37); SGPT/ALT 55 U/L (13-61); SODIUM 136 mmol/L (136-145); TOT PROT 6.8 g/dl (6.4-8.2)
[2018-09-18] MEDS: PRENATAL VITAMINS W/ FOLIC ACID TABLET (FP) PO SCH (10:19)
[2018-09-18] MEDS: CEFUROXIME AXETIL 500 MG TABLET PO SCH ×2 (10:19→22:25)
[2018-09-18] MEDS: BUDESONIDE/FORMETEROL FUMARATE 80/4.5 mcg INHALER IH SCH ×2 (10:20→22:25)
[2018-09-18] MEDS: NICOTINE 14 MG/24 HOURS TOPICAL PATCH TD SCH (10:20)
--- NOTE | 2018-09-18 11:21 | PN ---
S CIWA - CIWA Score Nausea/Vomitin-Mild Nausea/No Vomiting Muscle Tremors: 2 Anxiety: 1-Mildly Anxious Agitation: 1-Slight > Activity Paroxysmal Sweats: 1-Minimal Palms Moist Orientation: 0-Oriented Tacttile Disturbances: 0-None Auditory Disturbances: 0-None Visual Disturbances: 0-None Headache: 0-None Present CIWA-Ar Total Score: 6 BHS Progress Note (SOAP) Subjective: feeling better no longer feeling chill or cold patient preferring return to infectious disease specialist for medical and mental issues Objective: 09/18/18 11:20 Vital Signs Temperature 98.0 F 09/18/18 09:05 Pulse Rate 88 09/18/18 09:05 Respiratory Rate 18 09/18/18 09:05 Blood Pressure 102/62 09/18/18 09:05 O2 Sat by Pulse Oximetry (%) Laboratory Last Values WBC 1.8 K/mm3 (4.0-10.0) L* 09/16/18 13:00 RBC 3.80 M/mm3 (4.00-5.60) L 09/16/18 13:00 Hgb 13.3 GM/dL (11.7-16.9) 09/16/18 13:00 Hct 38.6 % (35.4-49) 09/16/18 13:00 MCV 101.6 fl (80-96) H 09/16/18 13:00 MCH 35.1 pg (25.7-33.7) H 09/16/18 13:00 MCHC 34.5 g/dl (32.0-35.9) 09/16/18 13:00 RDW 14.9 % (11.9-15.9) D 09/16/18 13:00 Plt Count 68 K/MM3 (134-434) L D 09/16/18 13:00 MPV 9.4 fl (7.5-11.1) D 09/16/18 13:00 Sodium 136 mmol/L (136-145) 09/18/18 07:00 Potassium 3.8 mmol/L (3.5-5.1) 09/18/18 07:00 Chloride 100 mmol/L (98-107) 09/18/18 07:00 Carbon Dioxide 29 mmol/L (21-32) 09/18/18 07:00 Anion Gap 7 MMOL/L (8-16) L 09/18/18 07:00 BUN 12 mg/dL (7-18) 09/18/18 07:00 Creatinine 0.6 mg/dL (0.55-1.3) 09/18/18 07:00 Creat Clearance w eGFR 141.48 (>60) 09/18/18 07:00 Random Glucose 109 mg/dL (74-106) H 09/18/18 07:00 Calcium 9.0 mg/dL (8.5-10.1) 09/18/18 07:00 Total Bilirubin 0.4 mg/dL (0.2-1) 09/18/18 07:00 AST 64 U/L (15-37) H 09/18/18 07:00 ALT 55 U/L (13-61) 09/18/18 07:00 Alkaline Phosphatase 96 U/L (45-117) 09/18/18 07:00 Total Protein 6.8 g/dl (6.4-8.2) 09/18/18 07:00 Albumin 3.0 g/dl (3.4-5.0) L 09/18/18 07:00 RPR Titer Nonreactive (NONREACTIVE) 09/16/18 13:00 lab noted patient agrees to bringing in lab report to infectious disease specialisty Assessment: 09/18/18 11:21 alcohol withdrawal sx Plan: continue detox
[2018-09-18] MEDS ORDERED: chlordiazePOXIDE HCL 10 MG CAPSULE PO PRN (13:00)
[2018-09-18] MEDS: chlordiazePOXIDE HCL 10 MG CAPSULE PO SCH ×2 (13:54→22:25)
[2018-09-18] MEDS ORDERED: guaiFENesin 200 MG/10 ML 10 ML UNIT-DOSE CUPS PO PRN (17:19)
[2018-09-18] MEDS: QUEtiapine FUMARATE 50 MG TABLET PO SCH (22:25)
[2018-09-18] MEDS: THIAMINE HCL 100 MG TABLET (FP) PO SCH (22:26)
[2018-09-19] MEDS: chlordiazePOXIDE HCL 10 MG CAPSULE PO SCH (05:05)
[2018-09-19 06:33] VITALS: BP 98/62; PULSE 98; TEMP 97.7
[2018-09-19 10:35] LABS: PH,URINE 7.5 (5.0-8.0); URINE APPEARANCE CLEAR; URINE BILIRUBIN NEGATIVE (NEGATIVE); URINE COLOR YELLOW; URINE GLUCOSE (UA) NEGATIVE (NEGATIVE); URINE KETONE NEGATIVE (NEGATIVE); URINE LEUK ESTERASE NEGATIVE (NEGATIVE); URINE NITRITE NEGATIVE (NEGATIVE); URINE PROTEIN NEGATIVE (NEGATIVE); URINE UROBILINOGEN 0.2 mg/dL (0.2-1.0)
--- NOTE | 2018-09-19 16:40 | DS ---
[facility] Detox Discharge Summary Admission Date: 09/16/18 Discharge Date: 09/19/18 - History Present History: Alcohol Dependence Additional Comments: 53 years old male admitted on 09/16/18 for alcohol withdrawal stabilization completed detox regimen aftercare [facility] inpatient alcohol rehab x 28 days - Physical Exam Results Vital Signs: Vital Signs Temperature 97.7 F 09/19/18 06:33 Pulse Rate 98 H 09/19/18 06:33 Respiratory Rate 18 09/19/18 06:33 Blood Pressure 98/62 09/19/18 06:33 O2 Sat by Pulse Oximetry (%) Pertinent Admission Physical Exam Findings: alcohol withdrawal sx Laboratory Last Values WBC 1.8 K/mm3 (4.0-10.0) L* 09/16/18 13:00 RBC 3.80 M/mm3 (4.00-5.60) L 09/16/18 13:00 Hgb 13.3 GM/dL (11.7-16.9) 09/16/18 13:00 Hct 38.6 % (35.4-49) 09/16/18 13:00 MCV 101.6 fl (80-96) H 09/16/18 13:00 MCH 35.1 pg (25.7-33.7) H 09/16/18 13:00 MCHC 34.5 g/dl (32.0-35.9) 09/16/18 13:00 RDW 14.9 % (11.9-15.9) D 09/16/18 13:00 Plt Count 68 K/MM3 (134-434) L D 09/16/18 13:00 MPV 9.4 fl (7.5-11.1) D 09/16/18 13:00 Sodium 136 mmol/L (136-145) 09/18/18 07:00 Potassium 3.8 mmol/L (3.5-5.1) 09/18/18 07:00 Chloride 100 mmol/L (98-107) 09/18/18 07:00 Carbon Dioxide 29 mmol/L (21-32) 09/18/18 07:00 Anion Gap 7 MMOL/L (8-16) L 09/18/18 07:00 BUN 12 mg/dL (7-18) 09/18/18 07:00 Creatinine 0.6 mg/dL (0.55-1.3) 09/18/18 07:00 Creat Clearance w eGFR 141.48 (>60) 09/18/18 07:00 Random Glucose 109 mg/dL (74-106) H 09/18/18 07:00 Calcium 9.0 mg/dL (8.5-10.1) 09/18/18 07:00 Total Bilirubin 0.4 mg/dL (0.2-1) 09/18/18 07:00 AST 64 U/L (15-37) H 09/18/18 07:00 ALT 55 U/L (13-61) 09/18/18 07:00 Alkaline Phosphatase 96 U/L (45-117) 09/18/18 07:00 Total Protein 6.8 g/dl (6.4-8.2) 09/18/18 07:00 Albumin 3.0 g/dl (3.4-5.0) L 09/18/18 07:00 Urine Color Yellow 09/19/18 07:00 Urine Appearance Clear 09/19/18 07:00 Urine pH 7.5 (5.0-8.0) D 09/19/18 07:00 Ur Specific [place] 1.004 (1.010-1.035) L 09/19/18 07:00 Urine Protein Negative (NEGATIVE) 09/19/18 07:00 Urine Glucose (UA) Negative (NEGATIVE) 09/19/18 07:00 Urine Ketones Negative (NEGATIVE) 09/19/18 07:00 Urine Blood Negative (NEGATIVE) 09/19/18 07:00 Urine Nitrite Negative (NEGATIVE) 09/19/18 07:00 Urine Bilirubin Negative (NEGATIVE) 09/19/18 07:00 Urine Urobilinogen 0.2 mg/dL (0.2-1.0) 09/19/18 07:00 Ur Leukocyte Esterase Negative (NEGATIVE) 09/19/18 07:00 RPR Titer Nonreactive (NONREACTIVE) 09/16/18 13:00 lab noted patient agrees to contact with his infectious disease provider - Treatment Hospital Course: Detox Protocol Followed, Detoxed Safely, Responded well, Discharged Condition Good, Rehab Referral Accepted Patient has Accepted a Re[facility] Referral to: [facility] - Medication Discharge Medications: Ambulatory Orders Darunavir Ethanolate [Prezista -] 600 mg PO DAILY #14 tab 01/18/18 Emtricitabine/Tenofovir [Truvada -] 1 tab PO DAILY #14 tablet 01/18/18 Albuterol Sulfate Inhaler - [Ventolin HFA Inhaler -] 2 inh PO Q4H PRN 05/29/18 Multivitamins [Multivit ([facility] Formulary)] 1 tab PO DAILY 05/29/18 Budesonide/Formeterol Fumarate [SYMBICORT 80/4.5mcg -] 2 puff IH BID 09/17/18 Sulfamethoxazole/Trimethoprim [Bactrim DS -] 1 tab PO DAILY 09/17/18 - Diagnosis (1) Alcohol dependence with uncomplicated withdrawal Status: Acute (2) Substance induced mood disorder Status: Suspected (3) Weight loss Status: Acute (4) Asthma Status: Chronic Qualifiers: Asthma severity: mild Asthma persistence: intermittent Asthma complication type: with status asthmaticus Qualified Code(s): J45.22 - Mild intermittent asthma with status asthmaticus (5) HIV (human immunodeficiency virus infection) Status: Chronic Qualifiers: HIV symptom status: asymptomatic Qualified Code(s): Z21 - Asymptomatic human immunodeficiency virus [HIV] infection status (6) Nicotine dependence Status: Acute Qualifiers: Nicotine product type: cigarettes Substance use status: in withdrawal Qualified Code(s): F17.213 - Nicotine dependence, cigarettes, with withdrawal (7) Use of cane as ambulatory aid Status: Chronic - AMA Did Patient Leave Against Medical Advice: No
== END 2018-09-19 08:37 | disposition home or self-care (01) | DRG 774 ==
LOC: YASAS 09:58 → Y3N 13:11
PROVIDERS: ADMIT Surgery; ATTEND Surgery
PROC: HZ2ZZZZ Detoxification Services for Substance Abuse Treatment (ICD-10-PCS; principal; 2018-09-16)
DX: F10.230 Alcohol dependence with withdrawal, uncomplicated (principal); F14.20 Cocaine dependence, uncomplicated; F17.213 Nicotine dependence, cigarettes, with withdrawal; F19.24 Other psychoactive substance dependence with psychoactive substance-induced mood disorder; E86.0 Dehydration; R63.4 Abnormal weight loss; J45.22 Mild intermittent asthma with status asthmaticus; Z21 Asymptomatic human immunodeficiency virus [HIV] infection status; R50.9 Fever, unspecified; R26.2 Difficulty in walking, not elsewhere classified; Z99.89 Dependence on other enabling machines and devices; Z91.5 Personal history of self-harm
CPT/HCPCS: 36415; 71046-TC-FY; 80053; 81003; 85027; 86593

== ENCOUNTER 2019-04-19 09:41 | Inpatient (IN) | payer OTHER ==
[2019-04-19 10:15] VITALS: BMI 21.7
--- NOTE | 2019-04-19 10:49 | HP ---
CIWA Score Nausea/Vomitin Muscle Tremors: 4-Moderate,w/Arms Extend Anxiety: 4-Mod. Anxious/Guarded Agitation: 1-Slight > Activity Paroxysmal Sweats: No Perspiration Orientation: 2-Disoriented Date<2 days Tacttile Disturbances: 1-Very Mild Itch/Numbness Auditory Disturbances: 0-None Visual Disturbances: 1-Very Mild Sensitivity Headache: 2-Mild CIWA-Ar Total Score: 18 - Admission Criteria OASAS Guidelines: Admission for Medically Managed Detox: Requires at least one of the followin. CIWA greater than 12 2. Seizures within the past 24 hours 3. Delirium tremens within the past 24 hours 4. Hallucinations within the past 24 hours 5. Acute intervention needed for co occurring medical disorder 6. Acute intervention needed for co occurring psychiatric disorder 7. Severe withdrawal that cannot be handled at a lower level of care (continued vomiting, continued diarrhea, abnormal vital signs) requiring intravenous medication and/or fluids 8. Patient presents the following: CIWA greater than 12 Admission Criteria Met: Admission criteria met Admitting History and Physical - Admission History Source: Patient - Social History Usual Living Arrangement: Yes: With Spouse (lives in a family assisted with his ) ADL: Support Services Admission ROS S - HPI Chief Complaint: I get sick whenever I try to stop drinking - I don't like the feeling - I need to stop Allergies/Adverse Reactions: Allergies Allergy/AdvReac Type Severity Reaction Status Date / Time No Known Allergies Allergy Verified 04/19/19 09:56 History of Present Illness: 53 yo gentleman here for detox from alcohol. Previously here for detox 2018. He did not f/u with the outpatient rehab plan as he was seeking housing. Currently lives in family assisted with his . Denies any seizures or black outs but does drink all day and gets very shaky and sick if he tries to stop. Patient also has AIDS with very low CD4 count - was getting care at [facility] but since now in [place] might tranfer care to [facility] HIV clinic. This is one of several admissions for treatment. Exam Limitations: Clinical Condition - Ebola screening Have you traveled outside of the country in the last 21 days: No (N) Have you had contact with anyone from an Ebola affected area: No Do you have a fever: No - Review of Systems Constitutional: Loss of Appetite, Malaise, Night Sweats, Changes in sleep, Weakness, Unintentional Wgt. Loss EENT: reports: Blurred Vision Respiratory: reports: No Symptoms reported Cardiac: reports: Chest Tightness (sometimes) GI: reports: Nausea, Poor Appetite, Poor Fluid Intake, Abdominal cramping : reports: Frequency Musculoskeletal: reports: Joint Pain (hip pain - chronic), Muscle Weakness Integumentary: reports: Dryness Neuro: reports: Headache, Numbness, Tremors, Dizziness Endocrine: reports: No Symptoms Reported Hematology: reports: Other (neutropenia and thrombocytopenia) Psychiatric: reports: Judgement Intact, Mood/Affect Appropiate, Anxious Other Systems: Reviewed and Negative Patient History - Patient Medical History Hx Anemia: No Hx Asthma: Yes (on albuterol inhaler) Hx Chronic Obstructive Pulmonary Disease (COPD): Yes Hx Cancer: No Hx Cardiac Disorders: No Hx Congestive Heart Failure: No Hx Hypertension: No Hx Hypercholesterolemia: No Hx Pacemaker: No HX Cerebrovascular Accident: No Hx Seizures: No Hx Dementia: No Hx Diabetes: No Hx Gastrointestinal Disorders: No Hx Liver Disease: No Hx Genitourinary Disorders: No Hx Sexually Transmitted Disorders: No Hx Renal Disease (ESRD): No Hx Thyroid Disease: No Hx Human Immunodeficiency Virus (HIV): Yes (states CD4 =34, poor adherence to meds) Hx Hepatitis C: Yes (never treated) Hx Depression: Yes (on meds) Hx Suicide Attempt: Yes (cut left wrist in 1985) Hx Bipolar Disorder: No Hx Schizophrenia: Yes (hospitalized last 2 years ago) Other Medical History: bilateral hip osteoarthritis - Patient Surgical History Past Surgical History: No Hx Neurologic Surgery: No Hx Cataract Extraction: No Hx Cardiac Surgery: No Hx Lung Surgery: Yes (November 2018 lung collapse - needed chest tube) Hx Breast Surgery: No Hx Breast Biopsy: No Hx Abdominal Surgery: No Hx Appendectomy: No Hx Cholecystectomy: No Hx Genitourinary Surgery: No Hx Section: No Hx Orthopedic Surgery: No Anesthesia Reaction: No - PPD History Previous Implant?: Yes Documented Results: Negative w/proof Implanted On Prior [facility] Admission?: Yes Date: 12/14/17 Results: 0 mm PPD to be Administered?: Yes - Reproductive History Patient is a Female of Child Bearing Age (11 -55 yrs old): No - Smoking Cessation Smoking history: Current every day smoker Have you smoked in the past 12 months: Yes Aproximately how many cigarettes per day: 20 Hx Chewing Tobacco Use: No Initiated information on smoking cessation: Yes 'Breaking Loose' booklet given: 04/19/19 (give on floor) - Substance & Tx. History Hx Alcohol Use: Yes Hx Substance Use: Yes Substance Use Type: Alcohol, Cocaine, Marijuana Hx Substance Use Treatment: Yes (detox) - Substances abused Alcohol Substance route: Oral Frequency: Daily Amount used: 24 oz x 3 cans of beer, 1/2 pint of bacardi Age of first use: 18 Date of last use: 04/18/19 Marijuana/Hashish Substance route: Smoking Frequency: 1-2 times per week Amount used: $20 Age of first use: 16 Date of last use: 04/12/19 Admission Physical Exam S - Vital Signs Vital Signs: Vital Signs - 24 hr 04/19/19 04/19/19 10:12 10:29 Temperature 97.0 F L 97.0 F L Pulse Rate 76 76 Respiratory 16 16 Rate Blood Pressure 111/73 111/73 - Physical General Appearance: Yes: Nourished, Appropriately Dressed, Moderate Distress, Thin, Tremorous, Anxious HEENTM: Yes: EOMI, Hearing grossly Normal, Normocephalic, Normal Voice, Pharynx Normal Respiratory: Yes: Normal Breath Sounds, No Respiratory Distress, Surgical Scar ( left upper rib area from chest tube) Neck: Yes: No masses,lesions,Nodules Breast: Yes: Breast Exam Deferred Cardiology: Yes: Regular Rhythm, Regular Rate Abdominal: Yes: Flat, Soft Genitourinary: Yes: Frequency Back: Yes: Normal Inspection Musculoskeletal: Yes: full range of Motion, Gait Steady, Joint Stiffness Extremities: Yes: Normal Inspection, Normal Range of Motion, Non-Tender, Tremors , Other (uses cane - bilateral hip pain/arthritis) Neurological: Yes: Alert, Normal Mood/Affect, Normal Response, Numbness, Other ( disoriented to date) Integumentary: Yes: Dry, Warm, Other (skin with hyperpigmentation of face; fingernails with darkened fungal infection) Lymphatic: Yes: Within Normal Limits - Diagnostic (1) Alcohol dependence with uncomplicated withdrawal Current Visit: Yes Status: Chronic (2) Thrombocytopenia Current Visit: Yes Status: Chronic (3) Weight loss Current Visit: Yes Status: Chronic (4) Dehydration Current Visit: Yes Status: Acute (5) Cannabis dependence Current Visit: Yes Status: Chronic (6) Nicotine dependence Current Visit: Yes Status: Chronic Qualifiers: Nicotine product type: cigarettes Substance use status: in withdrawal Qualified Code(s): F17.213 - Nicotine dependence, cigarettes, with withdrawal (7) Use of cane as ambulatory aid Current Visit: Yes Status: Chronic (8) Vertigo Current Visit: Yes Status: Acute (9) AIDS (acquired immunodeficiency syndrome), CD4 <=200/<=14% Current Visit: Yes Status: Chronic (10) Hepatitis C virus infection Current Visit: Yes Status: Acute Qualifiers: Viral hepatitis chronicity: chronic Hepatic coma status: without hepatic coma Qualified Code(s): B18.2 - Chronic viral hepatitis C (11) 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
[2019-04-19] MEDS ORDERED: chlordiazePOXIDE HCL 25 MG CAPSULE PO ONE (11:09)
[2019-04-19] MEDS ORDERED: METHOCARBAMOL 500 MG TABLET PO PRN (11:09)
[2019-04-19] MEDS ORDERED: IBUPROFEN 400 MG TABLET (FP) PO PRN (11:09)
[2019-04-19] MEDS ORDERED: BISMUTH SUBSALICYLATE 524 MG/30 ML UD PO PRN (11:09)
[2019-04-19] MEDS ORDERED: chlordiazePOXIDE HCL 25 MG CAPSULE PO PRN (11:09)
[2019-04-19] MEDS ORDERED: ACETAMINOPHEN 325 MG TABLET (FP) PO PRN ×2 (11:09)
[2019-04-19] MEDS ORDERED: MAGNESIUM HYDROX 2400MG/30ML ORAL SUSPENSION 30 ML CUP PO PRN (11:09)
[2019-04-19] MEDS ORDERED: MAGNESIUM CITRATE 300 ML BOTTLE PO PRN (11:09)
[2019-04-19] MEDS ORDERED: MENTHOL/PHENOL 1 EACH UD MM PRN (11:09)
[2019-04-19] MEDS ORDERED: MAG HYDROX/AL HYDROX/SIMETH 30 ML UNIT-DOSE CUP PO PRN (11:09)
[2019-04-19] MEDS ORDERED: MELATONIN 5 MG TABLETS PO PRN (11:09)
[2019-04-19] MEDS ORDERED: hydrOXYzine PAMOATE 25 MG CAPSULE (FP) PO PRN (11:09)
[2019-04-19] MEDS ORDERED: ALBUTEROL SO4 8 GM HFA INHALER IH PRN (11:11)
[2019-04-19] MEDS ORDERED: AZITHROMYCIN 600 MG TABLET PO SCH (11:15)
[2019-04-19] MEDS: SULFAMETHOXAZOLE/TRIMETHOPRIM 800MG/160MG D.S. TABLET PO SCH (14:28)
[2019-04-19] MEDS: DARUNAVIR ETHANOLATE 800 MG TAB PO SCH (14:28)
[2019-04-19] MEDS: MECLIZINE HCL 25 MG TABLET (FP) PO SCH ×2 (14:29→22:51)
[2019-04-19] MEDS: EMTRICITABINE 200MG/TENOFOVIR 300MG PO SCH (14:29)
[2019-04-19] MEDS: BUDESONIDE/FORMETEROL FUMARATE 80/4.5 mcg INHALER IH SCH ×2 (14:34→22:51)
[2019-04-19] MEDS: NICOTINE 21 MG/24 HOURS TOPICAL PATCH TD SCH (14:34)
[2019-04-19] MEDS: chlordiazePOXIDE HCL 25 MG CAPSULE PO SCH ×2 (17:30→22:51)
[2019-04-19] MEDS: THIAMINE HCL 100 MG TABLET (FP) PO SCH (22:51)
[2019-04-20] MEDS: chlordiazePOXIDE HCL 25 MG CAPSULE PO SCH ×4 (05:53→22:10)
[2019-04-20] MEDS: MECLIZINE HCL 25 MG TABLET (FP) PO SCH ×3 (05:54→22:09)
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
[2019-04-20] MEDS: NICOTINE 21 MG/24 HOURS TOPICAL PATCH TD SCH (10:11)
[2019-04-20] MEDS: PRENATAL VITAMINS W/ FOLIC ACID TABLET (FP) PO SCH (10:11)
[2019-04-20] MEDS: SULFAMETHOXAZOLE/TRIMETHOPRIM 800MG/160MG D.S. TABLET PO SCH (10:11)
[2019-04-20] MEDS: DARUNAVIR ETHANOLATE 800 MG TAB PO SCH (10:11)
[2019-04-20] MEDS: EMTRICITABINE 200MG/TENOFOVIR 300MG PO SCH (10:12)
[2019-04-20] MEDS: BUDESONIDE/FORMETEROL FUMARATE 80/4.5 mcg INHALER IH SCH ×2 (10:12→22:09)
[2019-04-20 10:19] LABS: HEMATOCRIT 38.6 % (35.4-49); MCH 34.1 pg (25.7-33.7); MCHC 33.6 g/dl (32.0-35.9); MEAN CELL VOLUME 101.4 fl (80-96); MEAN PLT VOLUME 10.4 fl (7.5-11.1); PLATELET COUNT 107 K/MM3 (134-434); RBC 3.81 M/mm3 (4.00-5.60); RDW 14.6 % (11.9-15.9)
[2019-04-20 10:32] LABS: ALBUMIN 3.4 g/dl (3.4-5.0); BILIRUBIN,TOTAL 0.9 mg/dL (0.2-1); BLOOD UREA NITROGEN 11.4 mg/dL (7-18); CALCIUM 9.2 mg/dL (8.5-10.1); CREATININE 0.7 mg/dL (0.55-1.3); POTASSIUM 4.5 mmol/L (3.5-5.1); TOT PROT 8.2 g/dl (6.4-8.2)
--- NOTE | 2019-04-20 11:22 | PN ---
[facility] CIWA - CIWA Score Nausea/Vomitin-Mild Nausea/No Vomiting Muscle Tremors: 4-Moderate,w/Arms Extend Anxiety: 3 Agitation: 2 Paroxysmal Sweats: 2 Orientation: 1-Uncertain about Date Tacttile Disturbances: 1-Very Mild Itch/Numbness Auditory Disturbances: 0-None Visual Disturbances: 0-None Headache: 0-None Present CIWA-Ar Total Score: 14 S Progress Note (SOAP) Subjective: 53 years old male admitted on 04/19/19 for alcohol withdrawal sx management treated with librium detox regimen patient tolerates well that ate breakfast, ambulating on hallway strong recommend that patient to brining in ART for continuity of care patient agrees to contact with his ID physician for ART Objective: 04/20/19 11:23 Vital Signs Temperature 96.5 F L 04/20/19 09:06 Pulse Rate 83 04/20/19 09:06 Respiratory Rate 16 04/20/19 09:06 Blood Pressure 96/63 04/20/19 09:06 O2 Sat by Pulse Oximetry (%) Laboratory Last Values WBC 2.0 K/mm3 (4.0-10.0) L 04/20/19 07:50 RBC 3.81 M/mm3 (4.00-5.60) L 04/20/19 07:50 Hgb 13.0 GM/dL (11.7-16.9) 04/20/19 07:50 Hct 38.6 % (35.4-49) 04/20/19 07:50 MCV 101.4 fl (80-96) H 04/20/19 07:50 MCH 34.1 pg (25.7-33.7) H 04/20/19 07:50 MCHC 33.6 g/dl (32.0-35.9) 04/20/19 07:50 RDW 14.6 % (11.9-15.9) 04/20/19 07:50 Plt Count 107 K/MM3 (134-434) L D 04/20/19 07:50 MPV 10.4 fl (7.5-11.1) D 04/20/19 07:50 Sodium 137 mmol/L (136-145) 04/20/19 07:40 Potassium 4.5 mmol/L (3.5-5.1) 04/20/19 07:40 Chloride 106 mmol/L (98-107) 04/20/19 07:40 Carbon Dioxide 27 mmol/L (21-32) 04/20/19 07:40 Anion Gap 5 MMOL/L (8-16) L 04/20/19 07:40 BUN 11.4 mg/dL (7-18) 04/20/19 07:40 Creatinine 0.7 mg/dL (0.55-1.3) 04/20/19 07:40 Est GFR (CKD-EPI)AfAm 125.75 04/20/19 07:40 Est GFR (CKD-EPI)NonAf 108.50 04/20/19 07:40 Random Glucose 79 mg/dL (74-106) 04/20/19 07:40 Calcium 9.2 mg/dL (8.5-10.1) 04/20/19 07:40 Total Bilirubin 0.9 mg/dL (0.2-1) 04/20/19 07:40 AST 79 U/L (15-37) H 04/20/19 07:40 ALT 61 U/L (13-61) 04/20/19 07:40 Alkaline Phosphatase 106 U/L (45-117) 04/20/19 07:40 Total Protein 8.2 g/dl (6.4-8.2) 04/20/19 07:40 Albumin 3.4 g/dl (3.4-5.0) 04/20/19 07:40 RPR Titer Nonreactive (NONREACTIVE) 04/20/19 07:40 lab noted low wbc long history of HIV patient agrees to contact with his ID for follow up Assessment: 04/20/19 11:24 alcohol withdrawal sx Plan: continue librium detox regimen
[2019-04-20] MEDS ORDERED: QUEtiapine FUMARATE 50 MG TABLET PO SCH (22:00)
[2019-04-20] MEDS: THIAMINE HCL 100 MG TABLET (FP) PO SCH (22:10)
[2019-04-21] MEDS: chlordiazePOXIDE HCL 25 MG CAPSULE PO SCH ×2 (05:59→10:41)
[2019-04-21] MEDS: MECLIZINE HCL 25 MG TABLET (FP) PO SCH (05:59)
--- NOTE | 2019-04-21 10:32 | PN ---
S CIWA - CIWA Score Nausea/Vomitin-Mild Nausea/No Vomiting Muscle Tremors: 3 Anxiety: 3 Agitation: 2 Paroxysmal Sweats: 2 Orientation: 1-Uncertain about Date (date of week) Tacttile Disturbances: 1-Very Mild Itch/Numbness Auditory Disturbances: 0-None Visual Disturbances: 0-None Headache: 0-None Present CIWA-Ar Total Score: 13 BHS Progress Note (SOAP) Subjective: 53 years old male admitted on 04/19/19 for alcohol withdrawal sx management treated with librium detox regimen ambulating with cane steady gait speech clearly coherently Objective: 04/21/19 10:31 Vital Signs Temperature 96.4 F L 04/21/19 09:23 Pulse Rate 80 04/21/19 09:23 Respiratory Rate 16 04/21/19 09:23 Blood Pressure 91/62 04/21/19 09:23 O2 Sat by Pulse Oximetry (%) Laboratory Last Values WBC 2.0 K/mm3 (4.0-10.0) L 04/20/19 07:50 RBC 3.81 M/mm3 (4.00-5.60) L 04/20/19 07:50 Hgb 13.0 GM/dL (11.7-16.9) 04/20/19 07:50 Hct 38.6 % (35.4-49) 04/20/19 07:50 MCV 101.4 fl (80-96) H 04/20/19 07:50 MCH 34.1 pg (25.7-33.7) H 04/20/19 07:50 MCHC 33.6 g/dl (32.0-35.9) 04/20/19 07:50 RDW 14.6 % (11.9-15.9) 04/20/19 07:50 Plt Count 107 K/MM3 (134-434) L D 04/20/19 07:50 MPV 10.4 fl (7.5-11.1) D 04/20/19 07:50 Sodium 137 mmol/L (136-145) 04/20/19 07:40 Potassium 4.5 mmol/L (3.5-5.1) 04/20/19 07:40 Chloride 106 mmol/L (98-107) 04/20/19 07:40 Carbon Dioxide 27 mmol/L (21-32) 04/20/19 07:40 Anion Gap 5 MMOL/L (8-16) L 04/20/19 07:40 BUN 11.4 mg/dL (7-18) 04/20/19 07:40 Creatinine 0.7 mg/dL (0.55-1.3) 04/20/19 07:40 Est GFR (CKD-EPI)AfAm 125.75 04/20/19 07:40 Est GFR (CKD-EPI)NonAf 108.50 04/20/19 07:40 Random Glucose 79 mg/dL (74-106) 04/20/19 07:40 Calcium 9.2 mg/dL (8.5-10.1) 04/20/19 07:40 Total Bilirubin 0.9 mg/dL (0.2-1) 04/20/19 07:40 AST 79 U/L (15-37) H 04/20/19 07:40 ALT 61 U/L (13-61) 04/20/19 07:40 Alkaline Phosphatase 106 U/L (45-117) 04/20/19 07:40 Total Protein 8.2 g/dl (6.4-8.2) 04/20/19 07:40 Albumin 3.4 g/dl (3.4-5.0) 04/20/19 07:40 RPR Titer Nonreactive (NONREACTIVE) 04/20/19 07:40 lab noted long history of hiv with chronic low wbc patient agrees to bringing in lab report to ID for follow up 04/21/19 10:31 Assessment: 04/21/19 10:32 alcohol withdrawal sx Plan: continue librium detox regimen
[2019-04-21] MEDS: SULFAMETHOXAZOLE/TRIMETHOPRIM 800MG/160MG D.S. TABLET PO SCH (10:41)
[2019-04-21] MEDS: PRENATAL VITAMINS W/ FOLIC ACID TABLET (FP) PO SCH (10:41)
[2019-04-21] MEDS: DARUNAVIR ETHANOLATE 800 MG TAB PO SCH (10:41)
[2019-04-21] MEDS: NICOTINE 21 MG/24 HOURS TOPICAL PATCH TD SCH (10:42)
[2019-04-21] MEDS: BUDESONIDE/FORMETEROL FUMARATE 80/4.5 mcg INHALER IH SCH (10:42)
[2019-04-21] MEDS: EMTRICITABINE 200MG/TENOFOVIR 300MG PO SCH (10:43)
[2019-04-21 14:33] VITALS: BP 103/70; PULSE 96; TEMP 98.3
--- NOTE | 2019-04-21 15:08 | DS ---
[facility] Detox Discharge Summary Admission Date: 04/19/19 Discharge Date: 04/21/19 - History Present History: Alcohol Dependence Additional Comments: 53 years old male admitted on 04/19/19 for alcohol withdrawal sx management treated with librium detox regimen patient is alert oriented x 3 speech clearly coherently ambulating steady gait patient insists to leave the detox unit that his brother required assistance patient refuses discharge ciwa refuses discharge physical examination Pertinent Past History: case discuss with nurse, counselor, that against medical advice is appropriate - Physical Exam Results Vital Signs: Vital Signs Temperature 98.3 F 04/21/19 14:33 Pulse Rate 96 H 04/21/19 14:33 Respiratory Rate 18 04/21/19 14:33 Blood Pressure 103/70 04/21/19 14:33 O2 Sat by Pulse Oximetry (%) Pertinent Admission Physical Exam Findings: alcohol withdrawal sx Laboratory Last Values WBC 2.0 K/mm3 (4.0-10.0) L 04/20/19 07:50 RBC 3.81 M/mm3 (4.00-5.60) L 04/20/19 07:50 Hgb 13.0 GM/dL (11.7-16.9) 04/20/19 07:50 Hct 38.6 % (35.4-49) 04/20/19 07:50 MCV 101.4 fl (80-96) H 04/20/19 07:50 MCH 34.1 pg (25.7-33.7) H 04/20/19 07:50 MCHC 33.6 g/dl (32.0-35.9) 04/20/19 07:50 RDW 14.6 % (11.9-15.9) 04/20/19 07:50 Plt Count 107 K/MM3 (134-434) L D 04/20/19 07:50 MPV 10.4 fl (7.5-11.1) D 04/20/19 07:50 Sodium 137 mmol/L (136-145) 04/20/19 07:40 Potassium 4.5 mmol/L (3.5-5.1) 04/20/19 07:40 Chloride 106 mmol/L (98-107) 04/20/19 07:40 Carbon Dioxide 27 mmol/L (21-32) 04/20/19 07:40 Anion Gap 5 MMOL/L (8-16) L 04/20/19 07:40 BUN 11.4 mg/dL (7-18) 04/20/19 07:40 Creatinine 0.7 mg/dL (0.55-1.3) 04/20/19 07:40 Est GFR (CKD-EPI)AfAm 125.75 04/20/19 07:40 Est GFR (CKD-EPI)NonAf 108.50 04/20/19 07:40 Random Glucose 79 mg/dL (74-106) 04/20/19 07:40 Calcium 9.2 mg/dL (8.5-10.1) 04/20/19 07:40 Total Bilirubin 0.9 mg/dL (0.2-1) 04/20/19 07:40 AST 79 U/L (15-37) H 04/20/19 07:40 ALT 61 U/L (13-61) 04/20/19 07:40 Alkaline Phosphatase 106 U/L (45-117) 04/20/19 07:40 Total Protein 8.2 g/dl (6.4-8.2) 04/20/19 07:40 Albumin 3.4 g/dl (3.4-5.0) 04/20/19 07:40 RPR Titer Nonreactive (NONREACTIVE) 04/20/19 07:40 lab noted return to ID for follow up - Treatment Hospital Course: Detox Protocol Followed, Responded well Patient has Accepted a Rehab Referral to: community support approach - Medication Discharge Medications: Ambulatory Orders Albuterol Sulfate Inhaler - [Ventolin HFA Inhaler -] 2 inh PO Q4H PRN 05/29/18 Budesonide/Formeterol Fumarate [SYMBICORT 80/4.5mcg -] 2 puff IH BID 09/17/18 Sulfamethoxazole/Trimethoprim [Bactrim DS -] 1 tab PO DAILY 09/17/18 Azithromycin [Zithromax -] 1,200 mg PO Q7D 04/19/19 Darunavir/Cobicistat [Prezcobix 800 mg-150 mg Tablet] 1 each PO DAILY 04/19/19 Emtricitabine/Tenofov Alafenam [Descovy 200-25 mg Tablet (Nf)] 1 each PO DAILY 04/19/19 Esomeprazole Magnesium 40 mg PO BID 04/19/19 Folic Acid - 1 mg PO DAILY 04/19/19 Ibuprofen 400 mg PO DAILY 04/19/19 Meclizine HCl 25 mg PO TID 04/19/19 Meclizine HCl [Antivert -] 25 mg PO TID 04/19/19 Multivitamin [Multiple Vitamins] 1 each PO DAILY 04/19/19 Quetiapine Fumarate [Seroquel -] 600 mg PO HS 04/19/19 - Diagnosis (1) Alcohol dependence with uncomplicated withdrawal Current Visit: Yes Status: Acute (2) AIDS (acquired immunodeficiency syndrome), CD4 <=200/<=14% Current Visit: Yes Status: Chronic (3) Nicotine dependence Current Visit: Yes Status: Acute Qualifiers: Nicotine product type: cigarettes Substance use status: in withdrawal Qualified Code(s): F17.213 - Nicotine dependence, cigarettes, with withdrawal (4) Weight loss Current Visit: Yes Status: Acute (5) Asthma Current Visit: Yes Status: Chronic Qualifiers: Asthma severity: mild Asthma persistence: intermittent Asthma complication type: with status asthmaticus Qualified Code(s): J45.22 - Mild intermittent asthma with status asthmaticus - AMA Did Patient Leave Against Medical Advice: Yes
[2019-04-22] MEDS ORDERED: chlordiazePOXIDE HCL 10 MG CAPSULE PO PRN
[2019-04-22] MEDS ORDERED: chlordiazePOXIDE HCL 10 MG CAPSULE PO SCH (05:00)
[2019-04-23] MEDS ORDERED: chlordiazePOXIDE HCL 10 MG CAPSULE PO SCH (05:00)
[2019-04-24] MEDS ORDERED: chlordiazePOXIDE HCL 10 MG CAPSULE PO ONE (05:00)
== END 2019-04-21 14:32 | disposition left against medical advice (07) | DRG 770 ==
LOC: YASAS 09:41 → Y3N 11:51
PROVIDERS: ADMIT Allergy & Immunology; ATTEND Allergy & Immunology
PROC: HZ2ZZZZ Detoxification Services for Substance Abuse Treatment (ICD-10-PCS; principal; 2019-04-19)
DX: F10.230 Alcohol dependence with withdrawal, uncomplicated (principal); F12.20 Cannabis dependence, uncomplicated; F17.213 Nicotine dependence, cigarettes, with withdrawal; F19.282 Other psychoactive substance dependence with psychoactive substance-induced sleep disorder; F19.24 Other psychoactive substance dependence with psychoactive substance-induced mood disorder; F32.9 Major depressive disorder, single episode, unspecified; B20 Human immunodeficiency virus [HIV] disease; D72.819 Decreased white blood cell count, unspecified; D69.6 Thrombocytopenia, unspecified; J45.22 Mild intermittent asthma with status asthmaticus; E86.0 Dehydration; B35.1 Tinea unguium; B18.2 Chronic viral hepatitis C; Z68.21 Body mass index [BMI] 21.0-21.9, adult; M16.0 Bilateral primary osteoarthritis of hip; Z91.5 Personal history of self-harm; Z99.89 Dependence on other enabling machines and devices; Z59.0 Homelessness
CPT/HCPCS: 36415; 80053; 85027; 86593

== ENCOUNTER 2020-02-18 12:58 | Inpatient (IN) | payer OTHER ==
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
--- NOTE | 2020-02-18 15:30 | HP ---
CIWA Score Nausea/Vomitin-Mild Nausea/No Vomiting Muscle Tremors: 4-Moderate,w/Arms Extend Anxiety: 4-Mod. Anxious/Guarded Agitation: 1-Slight > Activity Paroxysmal Sweats: 1-Minimal Palms Moist Orientation: 2-Disoriented Date<2 days Tacttile Disturbances: 0-None Auditory Disturbances: 0-None Visual Disturbances: 2-Mild Sensitivity Headache: 0-None Present CIWA-Ar Total Score: 15 - Admission Criteria OASAS Guidelines: Admission for Medically Managed Detox: Requires at least one of the followin. CIWA greater than 12 2. Seizures within the past 24 hours 3. Delirium tremens within the past 24 hours 4. Hallucinations within the past 24 hours 5. Acute intervention needed for co occurring medical disorder 6. Acute intervention needed for co occurring psychiatric disorder 7. Severe withdrawal that cannot be handled at a lower level of care (continued vomiting, continued diarrhea, abnormal vital signs) requiring intravenous medication and/or fluids 8. Admitting History and Physical - Admission History of Present Illness: Patient is a 54 y.o. M PMHx of HIV, COPD, asthma presenting to [facility] for detox. 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 Cardiovascular: No: HTN, Hyperlipdemia Pulmonary: Yes: Pneumonia Gastrointestinal: No: GERD, GI Bleed Hepatobiliary: No: Hepatitis A, Hepatitis B, Hepatitis C Infectious Disease: Yes: HIV - Past Surgical History Additional Past Surgical History: Tube placement due to L pneumothorax - Smoking History Smoking history: Current every day smoker Have you smoked in the past 12 months: Yes Aproximately how many cigarettes per day: 20 - Alcohol/Substance Use Hx Alcohol Use: Yes History of Substance Use: reports: Cocaine, Marijuana - Social History Usual Living Arrangement: Yes: Alone ADL: Support Services History of Recent Travel: No Admission ROS [facility] Allergies/Adverse Reactions: Allergies Allergy/AdvReac Type Severity Reaction Status Date / Time No Known Allergies Allergy Verified 02/18/20 16:15 Exam Limitations: No Limitations - Ebola screening Have you traveled outside of the country in the last 21 days: No Have you had contact with anyone from an Ebola affected area: No Have you been sick,other than usual withdrawal symptoms: No Do you have a fever: No - Review of Systems Constitutional: No Symptoms Reported EENT: reports: Blurred Vision. denies: Double Vision Respiratory: reports: Shortness of Breath. denies: Cough Cardiac: denies: Chest Pain, Lightheadedness GI: denies: Blood Streaked Bowels, Constipated, Diarrhea, Nausea, Vomiting : denies: Burning, Dysuria Musculoskeletal: reports: Muscle Pain. denies: Muscle Weakness Neuro: reports: Tingling (LE b/l), Dizziness Hematology: denies: Easy Bleeding Psychiatric: reports: No Sypmtoms Reported, Judgement Intact, Mood/Affect Appropiate, Orientated x3 Patient History - Patient Medical History Hx Anemia: No Hx Asthma: Yes (on albuterol inhaler) Hx Chronic Obstructive Pulmonary Disease (COPD): Yes Hx Cancer: No Hx Cardiac Disorders: No Hx Congestive Heart Failure: No Hx Hypertension: No Hx Hypercholesterolemia: No Hx Pacemaker: No HX Cerebrovascular Accident: No Hx Seizures: No Hx Dementia: No Hx Diabetes: No Hx Gastrointestinal Disorders: No Hx Liver Disease: No Hx Genitourinary Disorders: No Hx Sexually Transmitted Disorders: Yes (HIV) Hx Renal Disease (ESRD): No Hx Thyroid Disease: No Hx Human Immunodeficiency Virus (HIV): Yes (states CD4 =34, poor adherence to meds) Hx Hepatitis C: Yes (never treated) Hx Depression: Yes (on meds) Hx Suicide Attempt: Yes (cut left wrist in 1985) Hx Bipolar Disorder: No Hx Schizophrenia: Yes (hospitalized last 2 years ago) - Patient Surgical History Past Surgical History: No Hx Neurologic Surgery: No Hx Cataract Extraction: No Hx Cardiac Surgery: No Hx Lung Surgery: Yes (November 2018 lung collapse - needed chest tube) Hx Breast Surgery: No Hx Breast Biopsy: No Hx Abdominal Surgery: No Hx Appendectomy: No Hx Cholecystectomy: No Hx Genitourinary Surgery: No Hx Section: No Hx Orthopedic Surgery: No Anesthesia Reaction: No - PPD History Date: 04/21/19 Results: 0 mm - Smoking Cessation Smoking history: Current every day smoker Have you smoked in the past 12 months: Yes Aproximately how many cigarettes per day: 20 Hx Chewing Tobacco Use: No Initiated information on smoking cessation: Yes 'Breaking Loose' booklet given: 02/19/20 Admission Physical Exam [facility]HS - Physical General Appearance: Yes: Within Normal Limits, No Apparent Distress, Nourished, Appropriately Dressed Respiratory: Yes: Within Normal Limits, Lungs Clear, Decreased Breath Sounds, No Respiratory Distress, No Accessory Muscle Use Cardiology: Yes: Within Normal Limits, Regular Rhythm, Regular Rate Abdominal: Yes: Within Normal Limits, Normal Bowel Sounds, Flat, Soft, Tenderness Back: Yes: Within Normal Limits, Normal Inspection. No: CVA Tenderness Extremities: Yes: Within Normal Limits, Normal Inspection, Non-Tender Neurological: Yes: Within Normal Limits, Fully Oriented, Alert, Normal Mood/Affect, Normal Response Integumentary: Yes: Within Normal Limits, Normal Color, Warm - Diagnostic (1) Alcohol dependence with uncomplicated withdrawal Current Visit: No Status: Acute (2) Dehydration Current Visit: No Status: Acute (3) Depressed mood Current Visit: No Status: Acute (4) Insomnia Current Visit: No Status: Acute (5) Nicotine dependence Current Visit: No Status: Acute Qualifiers: Nicotine product type: cigarettes Substance use status: in withdrawal Qualified Code(s): F17.213 - Nicotine dependence, cigarettes, with withdrawal (6) Substance induced mood disorder Current Visit: No Status: Acute (7) AIDS (acquired immunodeficiency syndrome), CD4 <=200/<=14% Current Visit: No Status: Chronic (8) Asthma Current Visit: No Status: Chronic Qualifiers: Asthma severity: mild Asthma persistence: intermittent Asthma complication type: with status asthmaticus Qualified Code(s): J45.22 - Mild intermittent asthma with status asthmaticus (9) Cannabis dependence Current Visit: No Status: Chronic (10) Cocaine dependence Current Visit: No Status: Chronic Qualifiers: Substance use status: uncomplicated Qualified Code(s): F14.20 - Cocaine dependence, uncomplicated (11) Marijuana dependence Current Visit: No Status: Chronic (12) Onychomycosis Current Visit: No Status: Chronic Cleared for Admission B[facility] - Detox or Rehab [facility] Level of Care: Medically Managed Detox Regimen/Protocol: Librium Breathalyzer - Breathalyzer Breathalyzer: 0.019 Vital Signs - Vital Signs Vital signs refused: No Temperature: 98 F Pulse Rate: 95 Respiratory Rate: 20 Blood Pressure: 112/73 - Height Height: 1.6 m - Weight Weight: 55.338 kg - BMI Body Mass Index (BMI): 21.6 Urine Drug Screen - Test Device Lot number: [id number] Expiration date: 09/16/21 - Control Is test valid?: Yes - Results Drug screen NEGATIVE: No Urine drug screen results: THC-Marijuana, GERALD-Cocaine Inpatient Rehab Admission - Rehab Decision to Admit Inpatient rehab admission?: No
[2020-02-18] MEDS ORDERED: ACETAMINOPHEN 325 MG TABLET (FP) PO PRN ×2 (15:33)
[2020-02-18] MEDS ORDERED: ONDANSETRON *ODT* 4 MG TABLET SL PRN (15:33)
[2020-02-18] MEDS ORDERED: MAGNESIUM HYDROX 2400MG/30ML ORAL SUSPENSION 30 ML CUP PO PRN (15:33)
[2020-02-18] MEDS ORDERED: chlordiazePOXIDE HCL 25 MG CAPSULE PO PRN (15:33)
[2020-02-18] MEDS ORDERED: BISMUTH SUBSALICYLATE 524 MG/30 ML UD PO PRN (15:33)
[2020-02-18] MEDS ORDERED: METHOCARBAMOL 500 MG TABLET PO PRN (15:33)
[2020-02-18] MEDS ORDERED: MENTHOL/PHENOL 1 EACH UD MM PRN (15:33)
[2020-02-18] MEDS ORDERED: NICOTINE POLACRILEX 2 MG GUM BUC PRN (15:33)
[2020-02-18] MEDS ORDERED: MAG HYDROX/AL HYDROX/SIMETH 30 ML UNIT-DOSE CUP PO PRN (15:33)
[2020-02-18] MEDS ORDERED: IBUPROFEN 400 MG TABLET (FP) PO PRN (15:33)
[2020-02-18] MEDS ORDERED: MAGNESIUM CITRATE 300 ML BOTTLE PO PRN (15:33)
[2020-02-18 15:34] VITALS: BMI 21.6
[2020-02-18 17:45] LABS: HEMATOCRIT 36.5 % (35.4-49); HEMOGLOBIN 12.5 GM/dL (11.7-16.9); MCH 34.3 pg (25.7-33.7); MCHC 34.1 g/dl (32.0-35.9); MEAN CELL VOLUME 100.5 fl (80-96); PLATELET COUNT 63 K/MM3 (134-434); RBC 3.64 M/mm3 (4.00-5.60); RDW 14.8 % (11.9-15.9)
[2020-02-18] MEDS: chlordiazePOXIDE HCL 25 MG CAPSULE PO SCH ×2 (17:55→22:54)
[2020-02-18] MEDS: hydrOXYzine PAMOATE 25 MG CAPSULE (FP) PO SCH ×2 (17:55→22:46)
[2020-02-18 17:59] LABS: ALBUMIN 3.3 g/dl (3.4-5.0); BILIRUBIN,TOTAL 0.6 mg/dL (0.2-1); BLOOD UREA NITROGEN 7.6 mg/dL (7-18); CALCIUM 8.7 mg/dL (8.5-10.1); CREATININE 0.8 mg/dL (0.55-1.3); POTASSIUM 4.1 mmol/L (3.5-5.1); TOT PROT 8.1 g/dl (6.4-8.2)
[2020-02-18] MEDS: ALBUTEROL SO4 HFA INHALER IH PRN (19:01)
[2020-02-18] MEDS: THIAMINE HCL 100 MG TABLET (FP) PO SCH (22:46)
[2020-02-18] MEDS: MELATONIN 5 MG TABLETS PO SCH (22:46)
[2020-02-19] MEDS: chlordiazePOXIDE HCL 25 MG CAPSULE PO SCH ×3 (05:32→18:17)
[2020-02-19] MEDS: hydrOXYzine PAMOATE 25 MG CAPSULE (FP) PO SCH ×5 (05:32→22:56)
[2020-02-19] MEDS: PRENATAL VITAMINS W/ FOLIC ACID TABLET (FP) PO SCH (10:08)
[2020-02-19] MEDS: ALBUTEROL SO4 HFA INHALER IH PRN ×2 (10:08→20:39)
[2020-02-19] MEDS: EMTRICITABINE/TENOFOV ALAFENAM (DESCOVY) TABLET PO SCH (10:08)
[2020-02-19] MEDS: DARUNAVIR 800 MG/COBICISTAT 150MG TABLET PO SCH (10:09)
[2020-02-19] MEDS: SULFAMETHOXAZOLE/TRIMETHOPRIM 800MG/160MG D.S. TABLET PO SCH (10:09)
[2020-02-19] MEDS: NICOTINE 7 MG/24 HOURS TOPICAL PATCH TD SCH (10:11)
[2020-02-19] MEDS: BUDESONIDE/FORMETEROL FUMARATE 80/4.5 mcg INHALER IH SCH ×2 (10:13→22:25)
[2020-02-19] MEDS ORDERED: PNEUMOC 13-VAL CONJ-DIP CRM/PF 0.5 ML DISP.SYRIN IM ONE (12:00)
--- NOTE | 2020-02-19 12:41 | EKG ---
Test Reason : Blood Pressure : / mmHG Vent. Rate : 078 BPM Atrial Rate : 078 BPM P-R Int : 122 ms QRS Dur : 076 ms QT Int : 368 ms P-R-T Axes : 059 050 065 degrees QTc Int : 419 ms NORMAL SINUS RHYTHM NORMAL ECG WHEN COMPARED WITH ECG OF 15-MAR-2018 16:48, NO SIGNIFICANT CHANGE WAS FOUND Confirmed by HARISH BLAIR MD ([id number]) on 02/19/2020 12:40:29 PM Referred By: JIMMY TAFOYA Confirmed By:HARISH BLAIR MD
--- NOTE | 2020-02-19 14:31 | PN ---
S CIWA - CIWA Score Nausea/Vomitin-Mild Nausea/No Vomiting Muscle Tremors: 2 Anxiety: 2 Agitation: 2 Paroxysmal Sweats: No Perspiration Orientation: 0-Oriented Tacttile Disturbances: 1-Very Mild Itch/Numbness Auditory Disturbances: 0-None Visual Disturbances: 0-None Headache: 2-Mild CIWA-Ar Total Score: 10 S Progress Note (SOAP) Subjective: alert,irritable,anxious,interrupted sleep,tremor,aching pain Objective: 02/19/20 14:32 Vital Signs Temperature 99.6 F 02/19/20 12:48 Pulse Rate 96 H 02/19/20 12:48 Respiratory Rate 18 02/19/20 12:48 Blood Pressure 96/55 L 02/19/20 12:48 O2 Sat by Pulse Oximetry (%) 98 02/19/20 12:48 02/19/20 14:33 Laboratory Last Values WBC 2.0 K/mm3 (4.0-10.0) L 02/18/20 15:15 RBC 3.64 M/mm3 (4.00-5.60) L 02/18/20 15:15 Hgb 12.5 GM/dL (11.7-16.9) 02/18/20 15:15 Hct 36.5 % (35.4-49) 02/18/20 15:15 MCV 100.5 fl (80-96) H 02/18/20 15:15 MCH 34.3 pg (25.7-33.7) H 02/18/20 15:15 MCHC 34.1 g/dl (32.0-35.9) 02/18/20 15:15 RDW 14.8 % (11.9-15.9) 02/18/20 15:15 Plt Count 63 K/MM3 (134-434) L D 02/18/20 15:15 MPV 10.0 fl (7.5-11.1) 02/18/20 15:15 Sodium 140 mmol/L (136-145) 02/18/20 15:15 Potassium 4.1 mmol/L (3.5-5.1) 02/18/20 15:15 Chloride 106 mmol/L (98-107) 02/18/20 15:15 Carbon Dioxide 26 mmol/L (21-32) 02/18/20 15:15 Anion Gap 7 MMOL/L (8-16) L 02/18/20 15:15 BUN 7.6 mg/dL (7-18) 02/18/20 15:15 Creatinine 0.8 mg/dL (0.55-1.3) 02/18/20 15:15 Est GFR (CKD-EPI)AfAm 118.20 02/18/20 15:15 Est GFR (CKD-EPI)NonAf 101.99 02/18/20 15:15 Random Glucose 96 mg/dL (74-106) 02/18/20 15:15 Calcium 8.7 mg/dL (8.5-10.1) 02/18/20 15:15 Total Bilirubin 0.6 mg/dL (0.2-1) 02/18/20 15:15 AST 148 U/L (15-37) H 02/18/20 15:15 ALT 86 U/L (13-61) H 02/18/20 15:15 Alkaline Phosphatase 129 U/L (45-117) H 02/18/20 15:15 Total Protein 8.1 g/dl (6.4-8.2) 02/18/20 15:15 Albumin 3.3 g/dl (3.4-5.0) L 02/18/20 15:15 Syphilis Serology Reactive (NONREACTIVE) A* 02/18/20 15:15 RPR Titer Reactive 1:1 (NONREACTIVE) H D 02/18/20 15:15 Assessment: withdrawal symptom Plan: continue detox librium regimen,leukopenia,thrombocytpenia,elevation of liver enzyme probably combination of hiv and alcoholism,will repeat amp,cbc,inr in am
[2020-02-19] MEDS: THIAMINE HCL 100 MG TABLET (FP) PO SCH (22:25)
[2020-02-19] MEDS: MELATONIN 5 MG TABLETS PO SCH (22:56)
[2020-02-20] MEDS: chlordiazePOXIDE HCL 25 MG CAPSULE PO SCH ×5 (00:24→22:22)
[2020-02-20] MEDS: hydrOXYzine PAMOATE 25 MG CAPSULE (FP) PO SCH ×5 (06:01→22:22)
--- NOTE | 2020-02-20 08:52 | PN ---
Teaching Attending Note Name of Resident: Jayesh Mello ATTENDING PHYSICIAN STATEMENT I saw and evaluated the patient. I reviewed the resident's note and discussed the case with the resident. I agree with the resident's findings and plan as documented. SUBJECTIVE: OBJECTIVE: ASSESSMENT AND PLAN: Agree with resident's findings and plan for detox.
[2020-02-20] MEDS: DARUNAVIR 800 MG/COBICISTAT 150MG TABLET PO SCH (10:11)
[2020-02-20] MEDS: EMTRICITABINE/TENOFOV ALAFENAM (DESCOVY) TABLET PO SCH (10:11)
[2020-02-20] MEDS: PRENATAL VITAMINS W/ FOLIC ACID TABLET (FP) PO SCH (10:11)
[2020-02-20] MEDS: NICOTINE 7 MG/24 HOURS TOPICAL PATCH TD SCH (10:11)
[2020-02-20] MEDS: BUDESONIDE/FORMETEROL FUMARATE 80/4.5 mcg INHALER IH SCH ×2 (10:12→22:24)
[2020-02-20] MEDS: SULFAMETHOXAZOLE/TRIMETHOPRIM 800MG/160MG D.S. TABLET PO SCH (10:12)
[2020-02-20 10:46] LABS: HEMATOCRIT 36.5 % (35.4-49); HEMOGLOBIN 12.5 GM/dL (11.7-16.9); MCH 34.5 pg (25.7-33.7); MCHC 34.3 g/dl (32.0-35.9); MEAN CELL VOLUME 100.6 fl (80-96); MEAN PLT VOLUME 9.4 fl (7.5-11.1); PLATELET COUNT 47 K/MM3 (134-434); RBC 3.63 M/mm3 (4.00-5.60); RDW 15.2 % (11.9-15.9)
[2020-02-20 10:54] LABS: INR 1.12 (0.83-1.09); PROTHROMBIN TIME (PATIENT) 13.2 SEC (9.7-13.0)
[2020-02-20 10:59] LABS: ALBUMIN 3.2 g/dl (3.4-5.0); BILIRUBIN,TOTAL 0.9 mg/dL (0.2-1); BLOOD UREA NITROGEN 7.3 mg/dL (7-18); CALCIUM 8.8 mg/dL (8.5-10.1); CREATININE 0.7 mg/dL (0.55-1.3); TOT PROT 7.8 g/dl (6.4-8.2)
[2020-02-20 11:49] LABS: WHITE BLOOD COUNT 1.6 K/mm3 (4.0-10.0)
--- NOTE | 2020-02-20 15:41 | PN ---
S CIWA - CIWA Score Nausea/Vomitin-Mild Nausea/No Vomiting Muscle Tremors: 2 Anxiety: 2 Agitation: 2 Paroxysmal Sweats: No Perspiration Orientation: 0-Oriented Tacttile Disturbances: 1-Very Mild Itch/Numbness Auditory Disturbances: 0-None Visual Disturbances: 0-None Headache: 1-Very Mild CIWA-Ar Total Score: 9 BHS Progress Note (SOAP) Subjective: alert,irritable,anxious,interrupted sleep,tremor,aching pain,nausea Objective: 02/20/20 15:56 Vital Signs Temperature 97.1 F L 02/20/20 12:55 Pulse Rate 85 02/20/20 12:55 Respiratory Rate 18 02/20/20 12:55 Blood Pressure 108/66 02/20/20 12:55 O2 Sat by Pulse Oximetry (%) 97 02/20/20 12:55 Laboratory Results - last 24 hr 02/18/20 02/20/20 02/20/20 20:30 08:10 08:10 WBC RBC Hgb Hct MCV MCH MCHC RDW Plt Count MPV PT with INR 13.20 H INR 1.12 H Sodium 137 Potassium 4.0 Chloride 103 Carbon Dioxide 28 Anion Gap 5 L BUN 7.3 Creatinine 0.7 Est GFR (CKD-EPI)AfAm 124.87 Est GFR (CKD-EPI)NonAf 107.74 Random Glucose 100 Calcium 8.8 Total Bilirubin 0.9 AST 87 H ALT 79 H Alkaline Phosphatase 122 H Total Protein 7.8 Albumin 3.2 L COVID-19 ([facility]) Not detected 02/20/20 08:40 WBC 1.6 L* RBC 3.63 L Hgb 12.5 Hct 36.5 MCV 100.6 H MCH 34.5 H MCHC 34.3 RDW 15.2 Plt Count 47 L D MPV 9.4 PT with INR INR Sodium Potassium Chloride Carbon Dioxide Anion Gap BUN Creatinine Est GFR (CKD-EPI)AfAm Est GFR (CKD-EPI)NonAf Random Glucose Calcium Total Bilirubin AST ALT Alkaline Phosphatase Total Protein Albumin COVID-19 ([facility]) Assessment: 02/20/20 15:57 withdrawal symptom Plan: continue detox librium regimen,leukopenia,thrombocytopenia,close monitoring for bleeding and bruise,pepeat cbc in am
--- NOTE | 2020-02-20 16:10 | PN ---
[facility] Progress Note Note: patient did not want to completed treatment the high risk of relapsing explained,patient understood, explained to patient for abnormal blood test,leukopenia,thrombocytopenia,patient under stood, patient changed his mind to stay,rpeat cbc in am
[2020-02-20] MEDS: MELATONIN 5 MG TABLETS PO SCH (22:23)
[2020-02-20] MEDS: THIAMINE HCL 100 MG TABLET (FP) PO SCH (22:23)
[2020-02-21] MEDS ORDERED: chlordiazePOXIDE HCL 10 MG CAPSULE PO PRN
[2020-02-21] MEDS: chlordiazePOXIDE HCL 10 MG CAPSULE PO SCH ×3 (05:40→18:34)
[2020-02-21] MEDS: hydrOXYzine PAMOATE 25 MG CAPSULE (FP) PO SCH ×4 (05:40→18:55)
[2020-02-21 09:28] LABS: HEMATOCRIT 36.5 % (35.4-49); HEMOGLOBIN 12.6 GM/dL (11.7-16.9); MCH 34.8 pg (25.7-33.7); MCHC 34.4 g/dl (32.0-35.9); MEAN CELL VOLUME 101.2 fl (80-96); MEAN PLT VOLUME 9.5 fl (7.5-11.1); PLATELET COUNT 48 K/MM3 (134-434); RBC 3.61 M/mm3 (4.00-5.60); RDW 15.5 % (11.9-15.9)
[2020-02-21] MEDS ORDERED: AZITHROMYCIN 600 MG TABLET PO SCH (10:00)
[2020-02-21 10:11] LABS: WHITE BLOOD COUNT 1.8 K/mm3 (4.0-10.0)
[2020-02-21] MEDS ORDERED: MASKS NR ONE (10:13)
[2020-02-21] MEDS: DARUNAVIR 800 MG/COBICISTAT 150MG TABLET PO SCH (10:16)
[2020-02-21] MEDS: PRENATAL VITAMINS W/ FOLIC ACID TABLET (FP) PO SCH (10:16)
[2020-02-21] MEDS: EMTRICITABINE/TENOFOV ALAFENAM (DESCOVY) TABLET PO SCH (10:18)
[2020-02-21] MEDS: NICOTINE 7 MG/24 HOURS TOPICAL PATCH TD SCH (10:20)
[2020-02-21] MEDS: BUDESONIDE/FORMETEROL FUMARATE 80/4.5 mcg INHALER IH SCH (10:21)
--- NOTE | 2020-02-21 11:38 | PN ---
S CIWA - CIWA Score Nausea/Vomitin-No Nausea/No Vomiting Muscle Tremors: None Anxiety: 2 Agitation: 0-Normal Activity Paroxysmal Sweats: 3 Orientation: 0-Oriented Tacttile Disturbances: 0-None Auditory Disturbances: 0-None Visual Disturbances: 0-None Headache: 2-Mild CIWA-Ar Total Score: 7 BHS Progress Note (SOAP) Subjective: c/o sweats, anxiety, and headache. Objective: 02/21/20 11:36 Vital Signs 02/21/20 02/21/20 05:42 09:02 Temperature 97.3 F L 96.9 F L Pulse Rate 71 91 H Respiratory 20 18 Rate Blood Pressure 98/63 98/70 O2 Sat by Pulse 99 Oximetry (%) Laboratory Last Values WBC 1.8 K/mm3 (4.0-10.0) L* 02/21/20 07:40 RBC 3.61 M/mm3 (4.00-5.60) L 02/21/20 07:40 Hgb 12.6 GM/dL (11.7-16.9) 02/21/20 07:40 Hct 36.5 % (35.4-49) 02/21/20 07:40 MCV 101.2 fl (80-96) H 02/21/20 07:40 MCH 34.8 pg (25.7-33.7) H 02/21/20 07:40 MCHC 34.4 g/dl (32.0-35.9) 02/21/20 07:40 RDW 15.5 % (11.9-15.9) 02/21/20 07:40 Plt Count 48 K/MM3 (134-434) L 02/21/20 07:40 MPV 9.5 fl (7.5-11.1) 02/21/20 07:40 PT with INR 13.20 SEC (9.7-13.0) H 02/20/20 08:10 INR 1.12 (0.83-1.09) H 02/20/20 08:10 Sodium 137 mmol/L (136-145) 02/20/20 08:10 Potassium 4.0 mmol/L (3.5-5.1) 02/20/20 08:10 Chloride 103 mmol/L (98-107) 02/20/20 08:10 Carbon Dioxide 28 mmol/L (21-32) 02/20/20 08:10 Anion Gap 5 MMOL/L (8-16) L 02/20/20 08:10 BUN 7.3 mg/dL (7-18) 02/20/20 08:10 Creatinine 0.7 mg/dL (0.55-1.3) 02/20/20 08:10 Est GFR (CKD-EPI)AfAm 124.87 02/20/20 08:10 Est GFR (CKD-EPI)NonAf 107.74 02/20/20 08:10 Random Glucose 100 mg/dL (74-106) 02/20/20 08:10 Calcium 8.8 mg/dL (8.5-10.1) 02/20/20 08:10 Total Bilirubin 0.9 mg/dL (0.2-1) 02/20/20 08:10 AST 87 U/L (15-37) H 02/20/20 08:10 ALT 79 U/L (13-61) H 02/20/20 08:10 Alkaline Phosphatase 122 U/L (45-117) H 02/20/20 08:10 Total Protein 7.8 g/dl (6.4-8.2) 02/20/20 08:10 Albumin 3.2 g/dl (3.4-5.0) L 02/20/20 08:10 Syphilis Serology Reactive (NONREACTIVE) A* 02/18/20 15:15 RPR Titer Reactive 1:1 (NONREACTIVE) H D 02/18/20 15:15 COVID-19 ([facility]) Not detected (Not Detected) 02/18/20 20:30 Labs noted with low wbc. Assessment: 02/21/20 11:37 AOX3, in no acute respiratory distress. Full ROM, ambulating in the unit. Withdrawal symptoms. Leukopenia. Pt has history of AIDS. 02/21/20 11:38 Plan: continue detox. Continue Haart, azithromycin, and Bactrim.
[2020-02-21] MEDS: SULFAMETHOXAZOLE/TRIMETHOPRIM 800MG/160MG D.S. TABLET PO SCH (12:24)
--- NOTE | 2020-02-21 15:54 | PN ---
[facility] Progress Note Note: I was called to see this 54year old for fall. Pt was seen at bedside alert, verbally responsive, and in no acute respiratory distress. Pt states that, "i was in bed sleeping, i tried to turn and fell off from my bed". Denies hitting the head, denies any sob, chest pain, headache, n/v, dizziness, or loss of consciousness. C/o right shoulder pain. PE: HEENT:EOMI, PERRLA HEART:S1, S2, no murmurs LUNGS: clear to a/p, no wheezing, no rales. ABD: soft, non-tender, no cvat EXTR: (+) pulses, right shoulder tenderness, no abrasions, bruises, or swelling noted. Good capillary refill. ASS: S/P fall. Plan: ED evaluation. Pt refused to go to [facility] ED for evaluation. Continue detox. Continue tylenol prn for pain. Maintain fall precaution protocol.
[2020-02-22] MEDS: MELATONIN 5 MG TABLETS PO SCH
[2020-02-22] MEDS: THIAMINE HCL 100 MG TABLET (FP) PO SCH
[2020-02-22] MEDS: chlordiazePOXIDE HCL 10 MG CAPSULE PO SCH (00:05)
[2020-02-22] MEDS ORDERED: chlordiazePOXIDE HCL 10 MG CAPSULE PO SCH (05:00)
[2020-02-22] MEDS: hydrOXYzine PAMOATE 25 MG CAPSULE (FP) PO SCH ×3 (05:41→09:47)
[2020-02-22] MEDS: BUDESONIDE/FORMETEROL FUMARATE 80/4.5 mcg INHALER IH SCH ×2 (05:42→09:45)
[2020-02-22 09:29] VITALS: BP 102/66; PULSE 80; TEMP 96.9
[2020-02-22] MEDS: PRENATAL VITAMINS W/ FOLIC ACID TABLET (FP) PO SCH (09:45)
[2020-02-22] MEDS: DARUNAVIR 800 MG/COBICISTAT 150MG TABLET PO SCH (09:46)
[2020-02-22] MEDS: EMTRICITABINE/TENOFOV ALAFENAM (DESCOVY) TABLET PO SCH (09:46)
[2020-02-22] MEDS: NICOTINE 7 MG/24 HOURS TOPICAL PATCH TD SCH (09:47)
[2020-02-22] MEDS: SULFAMETHOXAZOLE/TRIMETHOPRIM 800MG/160MG D.S. TABLET PO SCH (09:47)
--- NOTE | 2020-02-22 15:57 | DS ---
[facility] Detox Discharge Summary Admission Date: 02/18/20 Discharge Date: 02/22/20 - History Present History: Alcohol Dependence Additional Comments: 54 years old male was admitted on 02/18/20 for alcohol withdrawal sx management treated with librium detox regiment mr hanson prefers to leave the detox due to his at 6N is leaving to home today mr hanson is alert oriented x 3 ambulating with cane slow steady fell "yesterday" "I did not hurt myself" mr hanson states that he bilateral hips replacement "possible soon" denies pain denies dizziness General Appearance: Yes: Within Normal Limits, No Apparent Distress, Nourished, Appropriately Dressed Respiratory: Yes: Within Normal Limits, Lungs Clear, Decreased Breath Sounds, No Respiratory Distress, No Accessory Muscle Use Cardiology: Yes: Within Normal Limits, Regular Rhythm, Regular Rate Abdominal: Yes: Within Normal Limits, Normal Bowel Sounds, Flat, Soft, Tenderness Back: Yes: Within Normal Limits, Normal Inspection. No: CVA Tenderness Extremities: Yes: Within Normal Limits, Normal Inspection, Non-Tender Neurological: Yes: Within Normal Limits, Fully Oriented, Alert, Normal Mood/Affect, Normal Response Integumentary: Yes: Within Normal Limits, Normal Color, Warm Pertinent Past History: time for discharge 43 minutes treatment team met with mr hanson to discuss benefits of librium completion mr hanson prefers to leave detox one day early than estimated discharge date of 02/23/20 mr hanson will return to his infectious disease provider for wbc and plt follow up - Physical Exam Results Vital Signs: Vital Signs Temperature 96.9 F L 02/22/20 08:27 Pulse Rate 80 02/22/20 08:27 Respiratory Rate 18 02/22/20 08:27 Blood Pressure 102/66 02/22/20 08:27 O2 Sat by Pulse Oximetry (%) 98 02/22/20 05:33 Pertinent Admission Physical Exam Findings: alcohol withdrawal Laboratory Tests 02/18/20 02/18/20 02/18/20 15:15 15:15 15:15 WBC 2.0 L RBC 3.64 L Hgb 12.5 Hct 36.5 MCV 100.5 H MCH 34.3 H MCHC 34.1 RDW 14.8 Plt Count 63 L D MPV 10.0 PT with INR INR Sodium 140 Potassium 4.1 Chloride 106 Carbon Dioxide 26 Anion Gap 7 L BUN 7.6 Creatinine 0.8 Est GFR (CKD-EPI)AfAm 118.20 Est GFR (CKD-EPI)NonAf 101.99 Random Glucose 96 Calcium 8.7 Total Bilirubin 0.6 AST 148 H ALT 86 H Alkaline Phosphatase 129 H Total Protein 8.1 Albumin 3.3 L Syphilis Serology Reactive A* RPR Titer COVID-19 ([facility]) 02/18/20 02/18/20 02/20/20 15:15 20:30 08:10 WBC RBC Hgb Hct MCV MCH MCHC RDW Plt Count MPV PT with INR INR Sodium 137 Potassium 4.0 Chloride 103 Carbon Dioxide 28 Anion Gap 5 L BUN 7.3 Creatinine 0.7 Est GFR (CKD-EPI)AfAm 124.87 Est GFR (CKD-EPI)NonAf 107.74 Random Glucose 100 Calcium 8.8 Total Bilirubin 0.9 AST 87 H ALT 79 H Alkaline Phosphatase 122 H Total Protein 7.8 Albumin 3.2 L Syphilis Serology RPR Titer Reactive 1:1 H D COVID-19 ([facility]) Not detected 02/20/20 02/20/20 02/21/20 08:10 08:40 07:40 WBC 1.6 L* 1.8 L* RBC 3.63 L 3.61 L Hgb 12.5 12.6 Hct 36.5 36.5 MCV 100.6 H 101.2 H MCH 34.5 H 34.8 H MCHC 34.3 34.4 RDW 15.2 15.5 Plt Count 47 L D 48 L MPV 9.4 9.5 PT with INR 13.20 H INR 1.12 H Sodium Potassium Chloride Carbon Dioxide Anion Gap BUN Creatinine Est GFR (CKD-EPI)AfAm Est GFR (CKD-EPI)NonAf Random Glucose Calcium Total Bilirubin AST ALT Alkaline Phosphatase Total Protein Albumin Syphilis Serology RPR Titer COVID-19 ([facility]) - Treatment Hospital Course: Detox Protocol Followed, Detoxed Safely, Responded well, Discharged Condition Good, Rehab Referral Accepted Patient has Accepted a Re[facility] Referral [facility] - Medication Discharge Medications: Ambulatory Orders Albuterol Sulfate Inhaler - [Ventolin HFA Inhaler -] 2 inh PO Q4H PRN 05/29/18 Budesonide/Formeterol Fumarate [SYMBICORT 80/4.5mcg -] 2 puff IH BID 09/17/18 Sulfamethoxazole/Trimethoprim [Bactrim DS -] 1 tab PO DAILY 09/17/18 Azithromycin [Zithromax 600mg Tablets -] 1,200 mg PO Q7D 04/19/19 Darunavir/Cobicistat [Prezcobix 800 mg-150 mg Tablet] 1 each PO DAILY 04/19/19 Emtricitabine/Tenofov Alafenam [Descovy 200-25 mg Tablet (Nf)] 1 each PO DAILY 04/19/19 Esomeprazole Magnesium 40 mg PO BID 04/19/19 Folic Acid - 1 mg PO DAILY 04/19/19 Ibuprofen 400 mg PO DAILY 04/19/19 Meclizine HCl 25 mg PO TID 04/19/19 Meclizine HCl [Antivert -] 25 mg PO TID 04/19/19 Multivitamin [Multiple Vitamins] 1 each PO DAILY 04/19/19 Quetiapine Fumarate [Seroquel -] 600 mg PO HS 04/19/19 - Diagnosis (1) Alcohol dependence with uncomplicated withdrawal Status: Acute (2) Hepatitis C virus infection Status: Chronic Qualifiers: Viral hepatitis chronicity: chronic Hepatic coma status: without hepatic coma Qualified Code(s): B18.2 - Chronic viral hepatitis C (3) Nicotine dependence Status: Acute Qualifiers: Nicotine product type: cigarettes Substance use status: in withdrawal Qualified Code(s): F17.213 - Nicotine dependence, cigarettes, with withdrawal (4) Osteoarthritis, hip, bilateral Status: Chronic Qualifiers: Osteoarthritis type: primary Qualified Code(s): M16.0 - Bilateral primary osteoarthritis of hip (5) Substance induced mood disorder Status: Suspected (6) Weight loss Status: Chronic (7) AIDS (acquired immunodeficiency syndrome), CD4 <=200/<=14% Status: Chronic (8) Asthma Status: Chronic Qualifiers: Asthma severity: mild Asthma persistence: intermittent Asthma com plication type: with status asthmaticus Qualified Code(s): J45.22 - Mild intermittent asthma with status asthmaticus (9) Use of cane as ambulatory aid Status: Chronic - AMA Did Patient Leave Against Medical Advice: No CIWA Score - CIWA Score Nausea/Vomitin-No Nausea/No Vomiting Muscle Tremors: None Anxiety: 1-Mildly Anxious Agitation: 0-Normal Activity Paroxysmal Sweats: 2 Orientation: 0-Oriented Tacttile Disturbances: 0-None Auditory Disturbances: 0-None Visual Disturbances: 0-None Headache: 1-Very Mild CIWA-Ar Total Score: 4
[2020-02-23] MEDS ORDERED: chlordiazePOXIDE HCL 10 MG CAPSULE PO ONE (05:00)
[2020-02-23] MEDS ORDERED: AZITHROMYCIN 600 MG TABLET PO SCH (10:00)
== END 2020-02-22 09:56 | disposition home or self-care (01) | DRG 774 ==
LOC: YASAS 12:58 → Y3N 16:19
PROVIDERS: ADMIT Allergy & Immunology; ATTEND Allergy & Immunology
PROC: HZ2ZZZZ Detoxification Services for Substance Abuse Treatment (ICD-10-PCS; principal; 2020-02-18)
DX: F10.230 Alcohol dependence with withdrawal, uncomplicated (principal); F14.20 Cocaine dependence, uncomplicated; F12.20 Cannabis dependence, uncomplicated; F17.210 Nicotine dependence, cigarettes, uncomplicated; F20.9 Schizophrenia, unspecified; B20 Human immunodeficiency virus [HIV] disease; D69.6 Thrombocytopenia, unspecified; D72.819 Decreased white blood cell count, unspecified; E86.0 Dehydration; G47.00 Insomnia, unspecified; J44.9 Chronic obstructive pulmonary disease, unspecified; J45.998 Other asthma; M16.0 Bilateral primary osteoarthritis of hip; B35.1 Tinea unguium; R74.8 Abnormal levels of other serum enzymes; R74.0 Nonspecific elevation of levels of transaminase and lactic acid dehydrogenase [LDH]; R63.4 Abnormal weight loss; Z68.21 Body mass index [BMI] 21.0-21.9, adult; Z99.89 Dependence on other enabling machines and devices; Z87.01 Personal history of pneumonia (recurrent); Z59.0 Homelessness; M25.511 Pain in right shoulder; W06.XXXA Fall from bed, initial encounter; Y93.89 Activity, other specified; Y92.230 Patient room in hospital as the place of occurrence of the external cause; Y99.8 Other external cause status
CPT/HCPCS: 36415; 80053; 85027; 85610; 86593; 86780; 93005; 93010; U0003

== ENCOUNTER 2020-11-16 09:13 | Inpatient (IN) | payer OTHER ==
[2020-11-16 09:46] VITALS: BMI 17.2
[2020-11-16] MEDS ORDERED: ALBUTEROL SO4 HFA INHALER IH PRN (10:45)
[2020-11-16] MEDS ORDERED: NICOTINE POLACRILEX 2 MG GUM BUC PRN (10:48)
[2020-11-16] MEDS ORDERED: METHOCARBAMOL 500 MG TABLET PO PRN (10:48)
[2020-11-16] MEDS ORDERED: MAGNESIUM CITRATE 300 ML BOTTLE PO PRN (10:48)
[2020-11-16] MEDS ORDERED: MAG HYDROX/AL HYDROX/SIMETH 30 ML UNIT-DOSE CUP PO PRN (10:48)
[2020-11-16] MEDS ORDERED: MAGNESIUM HYDROX 2400MG/30ML ORAL SUSPENSION 30 ML CUP PO PRN (10:48)
[2020-11-16] MEDS ORDERED: BISMUTH SUBSALICYLATE 262 MG/15 ML BTL PO PRN (10:48)
[2020-11-16] MEDS ORDERED: LORazepam 1 MG TABLET PO PRN (10:48)
[2020-11-16] MEDS ORDERED: ACETAMINOPHEN 325 MG TABLET (FP) PO PRN ×2 (10:48)
[2020-11-16] MEDS ORDERED: MENTHOL/PHENOL 1 EACH UD MM PRN (10:48)
[2020-11-16] MEDS ORDERED: ONDANSETRON *ODT* 4 MG TABLET SL PRN (10:48)
[2020-11-16] MEDS ORDERED: IBUPROFEN 400 MG TABLET (FP) PO PRN (10:48)
[2020-11-16 15:01] LABS: CALCIUM 8.7 mg/dL (8.5-10.1)
[2020-11-16 15:02] LABS: ALBUMIN 3.8 g/dl (3.4-5.0); BLOOD UREA NITROGEN 16.6 mg/dL (7-18)
[2020-11-16 15:05] LABS: BILIRUBIN,TOTAL 0.7 mg/dL (0.2-1); CREATININE 0.8 mg/dL (0.55-1.3)
[2020-11-16 15:07] LABS: TOT PROT 8.5 g/dl (6.4-8.2)
[2020-11-16 15:08] LABS: HEMATOCRIT 31.7 % (35.4-49); HEMOGLOBIN 11.1 GM/dL (11.7-16.9); MCH 33.6 pg (25.7-33.7); MEAN CELL VOLUME 95.9 fl (80-96); MEAN PLT VOLUME 8.6 fl (7.5-11.1); PLATELET COUNT 100 K/MM3 (134-434); RDW 13.3 % (11.9-15.9)
[2020-11-16] MEDS: SULFAMETHOXAZOLE/TRIMETHOPRIM 800MG/160MG D.S. TABLET PO SCH (15:30)
[2020-11-16] MEDS: NICOTINE 7 MG/24 HOURS TOPICAL PATCH TD SCH (15:30)
[2020-11-16] MEDS: hydrOXYzine PAMOATE 25 MG CAPSULE (FP) PO SCH ×3 (15:30→22:54)
[2020-11-16] MEDS: PRENATAL VITAMINS W/ FOLIC ACID TABLET (FP) PO SCH (15:30)
[2020-11-16] MEDS: EMTRICITABINE/TENOFOV ALAFENAM (DESCOVY) TABLET PO SCH (15:30)
[2020-11-16] MEDS: DARUNAVIR 800 MG/COBICISTAT 150MG TABLET PO SCH (15:30)
[2020-11-16] MEDS: PANTOPRAZOLE 20 MG TABLET PO SCH (15:30)
[2020-11-16] MEDS: LORazepam 2 MG TABLET PO SCH ×2 (17:30→22:54)
[2020-11-16] MEDS: THIAMINE HCL 100 MG TABLET (FP) PO SCH (22:55)
[2020-11-16] MEDS: MELATONIN 5 MG TABLETS PO SCH (22:55)
[2020-11-16] MEDS: BUDESONIDE/FORMETEROL FUMARATE 80/4.5 mcg INHALER IH SCH (22:57)
[2020-11-17] MEDS: LORazepam 2 MG TABLET PO SCH ×5 (06:00→22:57)
[2020-11-17] MEDS: hydrOXYzine PAMOATE 25 MG CAPSULE (FP) PO SCH ×5 (06:00→22:58)
[2020-11-17] MEDS: DARUNAVIR 800 MG/COBICISTAT 150MG TABLET PO SCH (07:20)
[2020-11-17] MEDS: POTASSIUM CHLORIDE ORAL LIQUID 20 MEQ/15 ML PO SCH ×2 (09:54→22:57)
[2020-11-17] MEDS: SULFAMETHOXAZOLE/TRIMETHOPRIM 800MG/160MG D.S. TABLET PO SCH (09:55)
[2020-11-17] MEDS: PANTOPRAZOLE 20 MG TABLET PO SCH (09:55)
[2020-11-17] MEDS: PRENATAL VITAMINS W/ FOLIC ACID TABLET (FP) PO SCH (09:55)
[2020-11-17] MEDS: BUDESONIDE/FORMETEROL FUMARATE 80/4.5 mcg INHALER IH SCH ×2 (10:04→22:57)
[2020-11-17] MEDS: NICOTINE 7 MG/24 HOURS TOPICAL PATCH TD SCH (10:04)
[2020-11-17] MEDS: EMTRICITABINE/TENOFOV ALAFENAM (DESCOVY) TABLET PO SCH (10:05)
[2020-11-17] MEDS: MELATONIN 5 MG TABLETS PO SCH (22:57)
[2020-11-17] MEDS: THIAMINE HCL 100 MG TABLET (FP) PO SCH (22:57)
[2020-11-18] MEDS: hydrOXYzine PAMOATE 25 MG CAPSULE (FP) PO SCH ×2 (05:42→11:13)
[2020-11-18] MEDS: LORazepam 1 MG TABLET PO SCH ×2 (05:42→11:11)
[2020-11-18] MEDS: DARUNAVIR 800 MG/COBICISTAT 150MG TABLET PO SCH (07:16)
[2020-11-18 09:04] VITALS: TEMP 96.9
[2020-11-18 09:56] LABS: HEMATOCRIT 31.8 % (35.4-49); MCH 33.5 pg (25.7-33.7); MCHC 34.7 g/dl (32.0-35.9); MEAN CELL VOLUME 96.5 fl (80-96); MEAN PLT VOLUME 8.6 fl (7.5-11.1); PLATELET COUNT 89 K/MM3 (134-434); RBC 3.29 M/mm3 (4.00-5.60); RDW 13.4 % (11.9-15.9)
[2020-11-18 09:59] LABS: INR 1.12 (0.83-1.09); PROTHROMBIN TIME (PATIENT) 13.5 SEC (9.7-13.0)
[2020-11-18 10:00] LABS: ALBUMIN 3.4 g/dl (3.4-5.0); BLOOD UREA NITROGEN 11.3 mg/dL (7-18); CALCIUM 8.8 mg/dL (8.5-10.1)
[2020-11-18 10:03] LABS: CREATININE 0.7 mg/dL (0.55-1.3)
[2020-11-18 10:05] LABS: BILIRUBIN,TOTAL 0.6 mg/dL (0.2-1); TOT PROT 7.7 g/dl (6.4-8.2)
[2020-11-18 11:02] LABS: WHITE BLOOD COUNT 1.5 K/mm3 (4.0-10.0)
[2020-11-18] MEDS: NICOTINE 7 MG/24 HOURS TOPICAL PATCH TD SCH (11:09)
[2020-11-18] MEDS: PANTOPRAZOLE 20 MG TABLET PO SCH (11:09)
[2020-11-18] MEDS: SULFAMETHOXAZOLE/TRIMETHOPRIM 800MG/160MG D.S. TABLET PO SCH (11:09)
[2020-11-18] MEDS: POTASSIUM CHLORIDE ORAL LIQUID 20 MEQ/15 ML PO SCH (11:09)
[2020-11-18] MEDS: BUDESONIDE/FORMETEROL FUMARATE 80/4.5 mcg INHALER IH SCH (11:10)
[2020-11-18] MEDS: PRENATAL VITAMINS W/ FOLIC ACID TABLET (FP) PO SCH (11:10)
[2020-11-18] MEDS: EMTRICITABINE/TENOFOV ALAFENAM (DESCOVY) TABLET PO SCH (11:11)
[2020-11-18 13:05] VITALS: BP 80/47; PULSE 96
[2020-11-19] MEDS ORDERED: LORazepam 0.5 MG TABLET PO PRN
[2020-11-19] MEDS ORDERED: LORazepam 0.5 MG TABLET PO SCH (05:00)
[2020-11-20] MEDS ORDERED: LORazepam 0.5 MG TABLET PO ONE (05:00)
== END 2020-11-18 13:17 | disposition left against medical advice (07) | DRG 770 ==
LOC: YASAS 09:13 → Y3N 10:06
PROVIDERS: ADMIT Allergy & Immunology; ATTEND Allergy & Immunology
PROC: HZ2ZZZZ Detoxification Services for Substance Abuse Treatment (ICD-10-PCS; principal; 2020-11-16)
DX: F10.230 Alcohol dependence with withdrawal, uncomplicated (principal); F14.20 Cocaine dependence, uncomplicated; F12.20 Cannabis dependence, uncomplicated; F17.210 Nicotine dependence, cigarettes, uncomplicated; Z21 Asymptomatic human immunodeficiency virus [HIV] infection status; D72.819 Decreased white blood cell count, unspecified; D69.6 Thrombocytopenia, unspecified; J45.20 Mild intermittent asthma, uncomplicated; K21.9 Gastro-esophageal reflux disease without esophagitis; E87.6 Hypokalemia; M16.0 Bilateral primary osteoarthritis of hip; R63.4 Abnormal weight loss; Z68.1 Body mass index [BMI] 19.9 or less, adult; Z86.19 Personal history of other infectious and parasitic diseases; Z99.89 Dependence on other enabling machines and devices; Z56.0 Unemployment, unspecified; Z59.0 Homelessness
CPT/HCPCS: 36415; 80053; 85027; 85610; 86593; 86780; C9803; U0003; U0005

== ENCOUNTER 2022-01-11 17:55 | Inpatient (IN) | payer OTHER ==
[2022-01-11 20:45] VITALS: BMI 19.8
[2022-01-11] MEDS ORDERED: BISMUTH SUBSALICYLATE 524 MG/30 ML PO PRN (21:29)
[2022-01-11] MEDS ORDERED: MAGNESIUM HYDROX 2400MG/30ML ORAL SUSPENSION 30 ML CUP PO PRN (21:29)
[2022-01-11] MEDS ORDERED: MAG HYDROX/AL HYDROX/SIMETH 30 ML UNIT-DOSE CUP PO PRN (21:29)
[2022-01-11] MEDS ORDERED: DICYCLOMINE HCL 10 MG CAPSULE PO PRN (21:29)
[2022-01-11] MEDS ORDERED: IBUPROFEN 400 MG TABLET (FP) PO PRN (21:29)
[2022-01-11] MEDS ORDERED: METHOCARBAMOL 500 MG TABLET PO PRN (21:29)
[2022-01-11] MEDS ORDERED: LORazepam 1 MG TABLET PO PRN (21:29)
[2022-01-11] MEDS ORDERED: NICOTINE 10 MG CARTRIDGE (INHALER) IH PRN (21:29)
[2022-01-11] MEDS ORDERED: ACETAMINOPHEN 325 MG TABLET (FP) PO PRN ×2 (21:29)
[2022-01-11] MEDS ORDERED: IBUPROFEN 600 MG TABLET (FP) PO PRN (21:29)
[2022-01-11] MEDS ORDERED: BENZOCAINE/MENTHOL (CHLORASEPTIC ) LOZENGE MM PRN (21:29)
[2022-01-11] MEDS ORDERED: MAGNESIUM CITRATE 300 ML BOTTLE PO PRN (21:29)
[2022-01-11] MEDS ORDERED: LOPERAMIDE HCL 2 MG CAPSULE PO PRN (21:29)
[2022-01-11] MEDS ORDERED: ONDANSETRON *ODT* 4 MG TABLET SL PRN (21:29)
[2022-01-11] MEDS: MELATONIN 5 MG TABLETS PO SCH (23:41)
[2022-01-11] MEDS: LORazepam 2 MG TABLET PO SCH (23:41)
[2022-01-11] MEDS: THIAMINE HCL 100 MG TABLET (FP) PO SCH (23:42)
[2022-01-12] MEDS: LORazepam 2 MG TABLET PO SCH ×4 (05:58→23:48)
[2022-01-12] MEDS: PRENATAL VITAMINS W/ FOLIC ACID TABLET (FP) PO SCH (11:24)
[2022-01-12] MEDS: NICOTINE 14 MG/24 HOURS TOPICAL PATCH TD SCH (11:26)
[2022-01-12] MEDS ORDERED: PNEUMOC 20-VAL CONJ-DIP CRM/PF 0.5 ML SYRINGE IM ONE (12:00)
[2022-01-12 14:36] LABS: HEMATOCRIT 38.6 % (35.4-49); HEMOGLOBIN 13.2 GM/dL (11.7-16.9); MCH 34.9 pg (25.7-33.7); MCHC 34.2 g/dl (32.0-35.9); MEAN PLT VOLUME 8.1 fl (7.5-11.1); PLATELET COUNT 183 10^3/uL (134-434); RBC 3.78 M/mm3 (4.00-5.60); RDW 13.4 % (11.9-15.9); WHITE BLOOD COUNT 3.6 K/mm3 (4.0-10.0)
[2022-01-12 15:45] LABS: ALBUMIN 3.1 g/dl (3.4-5.0)
[2022-01-12 15:47] LABS: BLOOD UREA NITROGEN 16.8 mg/dL (7-18); CALCIUM 8.6 mg/dL (8.5-10.1)
[2022-01-12 15:49] LABS: CREATININE 0.8 mg/dL (0.55-1.3)
[2022-01-12 15:51] LABS: BILIRUBIN,TOTAL 0.2 mg/dL (0.2-1); TOT PROT 7.4 g/dl (6.4-8.2)
[2022-01-12] MEDS ORDERED: TIOTROPIUM BROMIDE 2.5 MCG (SPIRIVA) RESPIMAT INHALER IH SCH (16:15)
[2022-01-12] MEDS: BICTEGRAV/EMTRICIT/TENOFOV (BIKTARVY) 50-200-25 MG TABLET PO SCH (18:34)
[2022-01-12] MEDS ORDERED: QUEtiapine FUMARATE 100 MG TABLET (FP) PO SCH (22:00)
[2022-01-12] MEDS: MELATONIN 5 MG TABLETS PO SCH (23:48)
[2022-01-12] MEDS: THIAMINE HCL 100 MG TABLET (FP) PO SCH (23:54)
[2022-01-13] MEDS: LORazepam 1 MG TABLET PO SCH ×2 (06:47→10:22)
[2022-01-13 08:21] VITALS: RESP 18
[2022-01-13 09:24] VITALS: BP 103/58; PULSE 85; TEMP 98.1
[2022-01-13] MEDS: PRENATAL VITAMINS W/ FOLIC ACID TABLET (FP) PO SCH (10:22)
[2022-01-13] MEDS: BICTEGRAV/EMTRICIT/TENOFOV (BIKTARVY) 50-200-25 MG TABLET PO SCH (10:24)
[2022-01-13] MEDS: NICOTINE 14 MG/24 HOURS TOPICAL PATCH TD SCH (10:24)
[2022-01-14] MEDS ORDERED: LORazepam 0.5 MG TABLET PO PRN
[2022-01-14] MEDS ORDERED: LORazepam 0.5 MG TABLET PO SCH (05:00)
[2022-01-15] MEDS ORDERED: LORazepam 0.5 MG TABLET PO ONE (05:00)
== END 2022-01-13 12:30 | disposition left against medical advice (07) | DRG 770 ==
LOC: YASAS 17:55 → Y6N 22:45
PROVIDERS: ADMIT Allergy & Immunology; ATTEND Surgery
PROC: HZ2ZZZZ Detoxification Services for Substance Abuse Treatment (ICD-10-PCS; principal; 2022-01-11)
DX: F10.230 Alcohol dependence with withdrawal, uncomplicated (principal); F14.20 Cocaine dependence, uncomplicated; F17.210 Nicotine dependence, cigarettes, uncomplicated; F25.9 Schizoaffective disorder, unspecified; F19.24 Other psychoactive substance dependence with psychoactive substance-induced mood disorder; F19.282 Other psychoactive substance dependence with psychoactive substance-induced sleep disorder; F32.A Depression, unspecified; J45.20 Mild intermittent asthma, uncomplicated; J44.9 Chronic obstructive pulmonary disease, unspecified; B20 Human immunodeficiency virus [HIV] disease; M16.0 Bilateral primary osteoarthritis of hip; G47.00 Insomnia, unspecified; R26.2 Difficulty in walking, not elsewhere classified; Z99.89 Dependence on other enabling machines and devices; Z91.14 Patient's other noncompliance with medication regimen; Z86.19 Personal history of other infectious and parasitic diseases; Z56.0 Unemployment, unspecified; Z59.01 Sheltered homelessness
CPT/HCPCS: 36415; 80053; 85027; 86593; 86780; 87811; 90677; C9803-CS; U0003; U0005

== ENCOUNTER 2022-02-24 09:41 | Inpatient (IN) | payer OTHER ==
[2022-02-24 10:48] VITALS: BMI 22.8
[2022-02-24] MEDS ORDERED: IBUPROFEN 600 MG TABLET (FP) PO PRN (10:55)
[2022-02-24] MEDS ORDERED: ACETAMINOPHEN 325 MG TABLET (FP) PO PRN ×2 (10:55)
[2022-02-24] MEDS ORDERED: MAG HYDROX/AL HYDROX/SIMETH 30 ML UNIT-DOSE CUP PO PRN (10:55)
[2022-02-24] MEDS ORDERED: ONDANSETRON *ODT* 4 MG TABLET SL PRN (10:55)
[2022-02-24] MEDS ORDERED: MAGNESIUM HYDROX 2400MG/30ML ORAL SUSPENSION 30 ML CUP PO PRN (10:55)
[2022-02-24] MEDS ORDERED: BENZOCAINE/MENTHOL (CHLORASEPTIC ) LOZENGE MM PRN (10:55)
[2022-02-24] MEDS ORDERED: IBUPROFEN 400 MG TABLET (FP) PO PRN (10:55)
[2022-02-24] MEDS ORDERED: METHOCARBAMOL 500 MG TABLET PO PRN (10:55)
[2022-02-24] MEDS ORDERED: BISMUTH SUBSALICYLATE 524 MG/30 ML PO PRN (10:55)
[2022-02-24] MEDS ORDERED: NALOXONE HCL (KLOXXADO) 8 MG SPRAY NS PRN (10:55)
[2022-02-24] MEDS ORDERED: chlordiazePOXIDE HCL 25 MG CAPSULE PO PRN (10:55)
[2022-02-24] MEDS ORDERED: NICOTINE 10 MG CARTRIDGE (INHALER) IH PRN (10:55)
[2022-02-24] MEDS ORDERED: LOPERAMIDE HCL 2 MG CAPSULE PO PRN (10:55)
[2022-02-24] MEDS ORDERED: DICYCLOMINE HCL 10 MG CAPSULE PO PRN (10:55)
[2022-02-24] MEDS ORDERED: MAGNESIUM CITRATE 300 ML BOTTLE PO PRN (10:55)
[2022-02-24] MEDS ORDERED: PNEUMOC 20-VAL CONJ-DIP CRM/PF 0.5 ML SYRINGE IM ONE (11:52)
[2022-02-24] MEDS: NICOTINE 14 MG/24 HOURS TOPICAL PATCH TD SCH (12:58)
[2022-02-24] MEDS: hydrOXYzine PAMOATE 25 MG CAPSULE (FP) PO SCH ×3 (12:59→22:40)
[2022-02-24 13:28] LABS: HEMATOCRIT 37.4 % (35.4-49); HEMOGLOBIN 12.9 GM/dL (11.7-16.9); MCH 35.1 pg (25.7-33.7); MCHC 34.5 g/dl (32.0-35.9); MEAN CELL VOLUME 101.9 fl (80-96); PLATELET COUNT 113 10^3/uL (134-434); RBC 3.67 M/mm3 (4.00-5.60); RDW 13.5 % (11.9-15.9); WHITE BLOOD COUNT 2.3 K/mm3 (4.0-10.0)
[2022-02-24 13:44] LABS: ALBUMIN 3.2 g/dl (3.4-5.0); BLOOD UREA NITROGEN 13.9 mg/dL (7-18); CALCIUM 8.5 mg/dL (8.5-10.1)
[2022-02-24 13:49] LABS: BILIRUBIN,TOTAL 0.4 mg/dL (0.2-1)
[2022-02-24] MEDS: chlordiazePOXIDE HCL 25 MG CAPSULE PO SCH ×2 (17:33→22:41)
[2022-02-24] MEDS: PANTOPRAZOLE 40 MG TABLET PO SCH (22:40)
[2022-02-24] MEDS: THIAMINE HCL 100 MG TABLET (FP) PO SCH (22:40)
[2022-02-24] MEDS: MELATONIN 5 MG TABLETS PO SCH (22:42)
[2022-02-24] MEDS: MECLIZINE HCL 25 MG TABLET (FP) PO SCH (22:43)
[2022-02-24] MEDS: BUDESONIDE/FORMETEROL FUMARATE 80/4.5 mcg INHALER IH SCH (22:43)
[2022-02-25] MEDS: MECLIZINE HCL 25 MG TABLET (FP) PO SCH ×3 (07:38→22:41)
[2022-02-25] MEDS: chlordiazePOXIDE HCL 25 MG CAPSULE PO SCH ×4 (07:38→22:41)
[2022-02-25] MEDS: hydrOXYzine PAMOATE 25 MG CAPSULE (FP) PO SCH ×5 (07:39→22:41)
[2022-02-25] MEDS ORDERED: EMTRICITABINE/TENOFOV ALAFENAM (DESCOVY) TABLET PO SCH (10:00)
[2022-02-25] MEDS ORDERED: DARUNAVIR 800 MG/COBICISTAT 150MG TABLET PO SCH (10:00)
[2022-02-25] MEDS: PANTOPRAZOLE 40 MG TABLET PO SCH ×2 (10:43→22:41)
[2022-02-25] MEDS: BICTEGRAV/EMTRICIT/TENOFOV (BIKTARVY) 50-200-25 MG TABLET PO SCH (10:43)
[2022-02-25] MEDS: PRENATAL VITAMINS W/ FOLIC ACID TABLET (FP) PO SCH (10:43)
[2022-02-25] MEDS: NICOTINE 14 MG/24 HOURS TOPICAL PATCH TD SCH (10:43)
[2022-02-25] MEDS: BUDESONIDE/FORMETEROL FUMARATE 80/4.5 mcg INHALER IH SCH ×2 (10:43→21:22)
[2022-02-25] MEDS: ALBUTEROL SO4 HFA INHALER IH PRN (21:20)
[2022-02-25] MEDS: THIAMINE HCL 100 MG TABLET (FP) PO SCH (22:41)
[2022-02-25] MEDS: MELATONIN 5 MG TABLETS PO SCH (22:41)
[2022-02-26] MEDS: hydrOXYzine PAMOATE 25 MG CAPSULE (FP) PO SCH ×5 (05:31→21:52)
[2022-02-26] MEDS: chlordiazePOXIDE HCL 25 MG CAPSULE PO SCH ×4 (05:31→22:32)
[2022-02-26] MEDS: MECLIZINE HCL 25 MG TABLET (FP) PO SCH ×4 (05:31→21:52)
[2022-02-26] MEDS: PANTOPRAZOLE 40 MG TABLET PO SCH ×2 (09:55→21:52)
[2022-02-26] MEDS: BICTEGRAV/EMTRICIT/TENOFOV (BIKTARVY) 50-200-25 MG TABLET PO SCH (09:56)
[2022-02-26] MEDS: BUDESONIDE/FORMETEROL FUMARATE 80/4.5 mcg INHALER IH SCH ×2 (10:15→21:52)
[2022-02-26] MEDS: PRENATAL VITAMINS W/ FOLIC ACID TABLET (FP) PO SCH (10:15)
[2022-02-26] MEDS: NICOTINE 14 MG/24 HOURS TOPICAL PATCH TD SCH (10:45)
[2022-02-26] MEDS ORDERED: ALBUTEROL SO4 2.5/IPRATROPIUM 0.5 INH SOL 3 ML VIAL.NEB. NEB PRN (19:45)
[2022-02-26] MEDS: THIAMINE HCL 100 MG TABLET (FP) PO SCH (21:52)
[2022-02-26] MEDS: MELATONIN 5 MG TABLETS PO SCH (21:53)
[2022-02-27] MEDS ORDERED: chlordiazePOXIDE HCL 10 MG CAPSULE PO PRN
[2022-02-27] MEDS: chlordiazePOXIDE HCL 10 MG CAPSULE PO SCH ×4 (06:24→22:11)
[2022-02-27] MEDS: hydrOXYzine PAMOATE 25 MG CAPSULE (FP) PO SCH ×5 (06:24→22:11)
[2022-02-27] MEDS: MECLIZINE HCL 25 MG TABLET (FP) PO SCH ×3 (06:25→22:11)
[2022-02-27] MEDS: BICTEGRAV/EMTRICIT/TENOFOV (BIKTARVY) 50-200-25 MG TABLET PO SCH (10:55)
[2022-02-27] MEDS: NICOTINE 14 MG/24 HOURS TOPICAL PATCH TD SCH (10:56)
[2022-02-27] MEDS: PANTOPRAZOLE 40 MG TABLET PO SCH ×2 (10:56→22:11)
[2022-02-27] MEDS: PRENATAL VITAMINS W/ FOLIC ACID TABLET (FP) PO SCH (10:56)
[2022-02-27] MEDS: BUDESONIDE/FORMETEROL FUMARATE 80/4.5 mcg INHALER IH SCH ×2 (10:57→22:11)
[2022-02-27] MEDS: THIAMINE HCL 100 MG TABLET (FP) PO SCH (22:11)
[2022-02-27] MEDS: MELATONIN 5 MG TABLETS PO SCH (22:11)
[2022-02-28] MEDS: MECLIZINE HCL 25 MG TABLET (FP) PO SCH ×3 (05:11→22:02)
[2022-02-28] MEDS: chlordiazePOXIDE HCL 10 MG CAPSULE PO SCH ×2 (05:11→17:26)
[2022-02-28] MEDS: hydrOXYzine PAMOATE 25 MG CAPSULE (FP) PO SCH ×5 (05:11→21:59)
[2022-02-28] MEDS: BICTEGRAV/EMTRICIT/TENOFOV (BIKTARVY) 50-200-25 MG TABLET PO SCH (07:43)
[2022-02-28] MEDS: ALBUTEROL SO4 HFA INHALER IH PRN (09:34)
[2022-02-28] MEDS: PANTOPRAZOLE 40 MG TABLET PO SCH ×2 (09:35→22:02)
[2022-02-28] MEDS: BUDESONIDE/FORMETEROL FUMARATE 80/4.5 mcg INHALER IH SCH ×2 (09:35→22:01)
[2022-02-28] MEDS: PRENATAL VITAMINS W/ FOLIC ACID TABLET (FP) PO SCH (09:35)
[2022-02-28] MEDS: NICOTINE 14 MG/24 HOURS TOPICAL PATCH TD SCH (09:36)
[2022-02-28 12:50] VITALS: RESP 16
[2022-02-28] MEDS: MELATONIN 5 MG TABLETS PO SCH (22:01)
[2022-02-28] MEDS: THIAMINE HCL 100 MG TABLET (FP) PO SCH (22:02)
[2022-03-01] MEDS ORDERED: chlordiazePOXIDE HCL 10 MG CAPSULE PO ONE (05:00)
[2022-03-01] MEDS: hydrOXYzine PAMOATE 25 MG CAPSULE (FP) PO SCH ×2 (06:18→10:54)
[2022-03-01] MEDS: MECLIZINE HCL 25 MG TABLET (FP) PO SCH (06:19)
[2022-03-01 09:20] VITALS: BP 109/60; PULSE 87; TEMP 97.3
[2022-03-01] MEDS: BICTEGRAV/EMTRICIT/TENOFOV (BIKTARVY) 50-200-25 MG TABLET PO SCH (10:54)
[2022-03-01] MEDS: NICOTINE 14 MG/24 HOURS TOPICAL PATCH TD SCH (10:54)
[2022-03-01] MEDS: BUDESONIDE/FORMETEROL FUMARATE 80/4.5 mcg INHALER IH SCH (10:54)
[2022-03-01] MEDS: PRENATAL VITAMINS W/ FOLIC ACID TABLET (FP) PO SCH (10:54)
[2022-03-01] MEDS: PANTOPRAZOLE 40 MG TABLET PO SCH (10:54)
== END 2022-03-01 08:53 | disposition home or self-care (01) | DRG 774 ==
LOC: YASAS 09:41 → Y3N 12:23
PROVIDERS: ADMIT Allergy & Immunology; ATTEND Surgery
PROC: HZ2ZZZZ Detoxification Services for Substance Abuse Treatment (ICD-10-PCS; principal; 2022-02-24)
DX: F10.230 Alcohol dependence with withdrawal, uncomplicated (principal); F14.20 Cocaine dependence, uncomplicated; F12.20 Cannabis dependence, uncomplicated; F17.210 Nicotine dependence, cigarettes, uncomplicated; F31.9 Bipolar disorder, unspecified; F19.282 Other psychoactive substance dependence with psychoactive substance-induced sleep disorder; F19.24 Other psychoactive substance dependence with psychoactive substance-induced mood disorder; F41.8 Other specified anxiety disorders; Z21 Asymptomatic human immunodeficiency virus [HIV] infection status; E86.0 Dehydration; D72.819 Decreased white blood cell count, unspecified; J44.9 Chronic obstructive pulmonary disease, unspecified; M16.0 Bilateral primary osteoarthritis of hip; R63.4 Abnormal weight loss; Z68.22 Body mass index [BMI] 22.0-22.9, adult; Z99.89 Dependence on other enabling machines and devices; Z86.19 Personal history of other infectious and parasitic diseases
CPT/HCPCS: 36415; 71045-TC-FY; 80053; 85027; 86593; 86780; 94640; C9803-CS; U0003; U0005

== ENCOUNTER 2023-01-15 12:36 | Inpatient (IN) | payer OTHER ==
[2023-01-15 13:48] VITALS: BMI 17.6
[2023-01-15] MEDS ORDERED: COLLOIDAL OATMEAL 1 BAR EACH TP PRN (15:18)
[2023-01-15] MEDS ORDERED: MAGNESIUM HYDROX 2400MG/30ML ORAL SUSPENSION 30 ML CUP PO PRN ×2 (15:18→19:54)
[2023-01-15] MEDS ORDERED: IBUPROFEN 600 MG TABLET (FP) PO PRN ×2 (15:18→19:54)
[2023-01-15] MEDS ORDERED: NALOXONE HCL (KLOXXADO) 8 MG SPRAY NS PRN ×2 (15:18→19:54)
[2023-01-15] MEDS ORDERED: BENZONATATE 200 MG CAPSULE PO PRN ×2 (15:18→19:54)
[2023-01-15] MEDS ORDERED: hydrOXYzine PAMOATE 25 MG CAPSULE (FP) PO PRN ×2 (15:18→19:54)
[2023-01-15] MEDS ORDERED: LOPERAMIDE HCL 2 MG CAPSULE PO PRN ×2 (15:18→19:54)
[2023-01-15] MEDS ORDERED: IBUPROFEN 400 MG TABLET (FP) PO PRN ×2 (15:18→19:54)
[2023-01-15] MEDS ORDERED: MAG HYDROX/AL HYDROX/SIMETH 30 ML UNIT-DOSE CUP PO PRN ×2 (15:18→19:54)
[2023-01-15] MEDS ORDERED: guaiFENesin 600 MG TABLET.ER (FP) PO PRN ×2 (15:18→19:54)
[2023-01-15] MEDS ORDERED: AMMONIUM LACTATE 12% LOTION 225 GM BOTTLE TP PRN (15:18)
[2023-01-15] MEDS ORDERED: ACETAMINOPHEN 325 MG TABLET (FP) PO PRN ×2 (15:18→19:54)
[2023-01-15] MEDS ORDERED: POLYETHYLENE GLYCOL (HEALTHYLAX) 3350 17 GM PACKET PO PRN ×2 (15:18→19:54)
[2023-01-15] MEDS ORDERED: NALOXONE HCL 0.4 MG/ML VIAL IM PRN ×2 (15:18→19:54)
[2023-01-15] MEDS ORDERED: BENZOCAINE/MENTHOL (CHLORASEPTIC ) LOZENGE MM PRN (15:18)
[2023-01-15] MEDS ORDERED: NICOTINE 7 MG/24 HOURS TOPICAL PATCH TD SCH (15:30)
[2023-01-15] MEDS ORDERED: PRENATAL VITAMINS W/ FOLIC ACID TABLET (FP) PO SCH (15:30)
[2023-01-15] MEDS ORDERED: SULFAMETHOXAZOLE/TRIMETHOPRIM 800MG/160MG D.S. TABLET PO SCH (16:00)
[2023-01-15] MEDS ORDERED: ONDANSETRON *ODT* 4 MG TABLET SL PRN (19:54)
[2023-01-15] MEDS ORDERED: diazePAM 5 MG TABLET PO PRN (19:54)
[2023-01-15] MEDS ORDERED: BISMUTH SUBSALICYLATE 524 MG/30 ML PO PRN (19:54)
[2023-01-15] MEDS ORDERED: METHOCARBAMOL 500 MG TABLET PO PRN (19:54)
[2023-01-15] MEDS ORDERED: DICYCLOMINE HCL 10 MG CAPSULE PO PRN (19:54)
[2023-01-15] MEDS ORDERED: ALBUTEROL SO4 HFA INHALER IH PRN (19:57)
[2023-01-15] MEDS: BUDESONIDE/FORMETEROL FUMARATE 80/4.5 mcg INHALER IH SCH (21:37)
[2023-01-15] MEDS: MELATONIN 5 MG TABLETS PO SCH (21:37)
[2023-01-15] MEDS: THIAMINE HCL 100 MG TABLET (FP) PO SCH (21:37)
[2023-01-15] MEDS ORDERED: ZINC OXIDE 20% TOPICAL OINTMENT 30 GM TUBE TP SCH (22:00)
[2023-01-15] MEDS ORDERED: THIAMINE HCL 100 MG TABLET (FP) PO SCH (22:00)
[2023-01-15] MEDS ORDERED: MELATONIN 5 MG TABLETS PO SCH (22:00)
[2023-01-15] MEDS: diazePAM 5 MG TABLET PO SCH (22:23)
[2023-01-16] MEDS: diazePAM 5 MG TABLET PO SCH ×4 (05:09→22:46)
[2023-01-16] MEDS: BENZOCAINE/MENTHOL (CHLORASEPTIC ) LOZENGE MM PRN ×2 (05:10→10:30)
[2023-01-16] MEDS ORDERED: BICTEGRAV/EMTRICIT/TENOFOV (BIKTARVY) 50-200-25 MG TABLET PO SCH (08:00)
[2023-01-16] MEDS ORDERED: AZITHROMYCIN 250 MG TABLET PO SCH (10:00)
[2023-01-16] MEDS ORDERED: FOLIC ACID 1 MG TABLET (FP) PO SCH (10:00)
[2023-01-16] MEDS: DARUNAVIR 800 MG/COBICISTAT 150MG TABLET PO SCH (10:25)
[2023-01-16] MEDS: PRENATAL VITAMINS W/ FOLIC ACID TABLET (FP) PO SCH (10:25)
[2023-01-16] MEDS: BUDESONIDE/FORMETEROL FUMARATE 80/4.5 mcg INHALER IH SCH ×2 (10:25→21:40)
[2023-01-16 10:26] LABS: HEMATOCRIT 34.6 % (35.4-49); MCH 33.9 pg (25.7-33.7); MCHC 34.6 g/dl (32.0-35.9); MEAN CELL VOLUME 97.8 fl (80-96); MEAN PLT VOLUME 8.4 fl (7.5-11.1); PLATELET COUNT 153 10^3/uL (134-434); RBC 3.54 M/mm3 (4.00-5.60); RDW 14.5 % (11.9-15.9); WHITE BLOOD COUNT 2.5 K/mm3 (4.0-10.0)
[2023-01-16 10:28] LABS: POTASSIUM 3.6 mmol/L (3.5-5.1)
[2023-01-16 10:31] LABS: ALBUMIN 3.2 g/dl (3.4-5.0)
[2023-01-16 10:32] LABS: BLOOD UREA NITROGEN 21.5 mg/dL (7-18)
[2023-01-16 10:35] LABS: CREATININE 0.7 mg/dL (0.55-1.3)
[2023-01-16 10:37] LABS: BILIRUBIN,TOTAL 0.6 mg/dL (0.2-1); TOT PROT 7.7 g/dl (6.4-8.2)
[2023-01-16] MEDS: EMTRICITABINE/TENOFOV ALAFENAM (DESCOVY) TABLET PO SCH (11:23)
[2023-01-16] MEDS: MELATONIN 5 MG TABLETS PO SCH (21:37)
[2023-01-16] MEDS: THIAMINE HCL 100 MG TABLET (FP) PO SCH (21:38)
[2023-01-16] MEDS ORDERED: QUEtiapine FUMARATE 100 MG TABLET (FP) PO SCH ×2 (22:00)
[2023-01-17] MEDS ORDERED: diazePAM 5 MG TABLET PO SCH (06:00)
[2023-01-17] MEDS: PRENATAL VITAMINS W/ FOLIC ACID TABLET (FP) PO SCH (10:18)
[2023-01-17] MEDS: BUDESONIDE/FORMETEROL FUMARATE 80/4.5 mcg INHALER IH SCH (10:19)
[2023-01-17] MEDS: EMTRICITABINE/TENOFOV ALAFENAM (DESCOVY) TABLET PO SCH (10:19)
[2023-01-17] MEDS: DARUNAVIR 800 MG/COBICISTAT 150MG TABLET PO SCH (10:19)
[2023-01-17] MEDS ORDERED: LIDOCAINE VISCOUS 2% ORAL/TOP 15 ML UNIT-DOSE CUP MM PRN (11:48)
[2023-01-17 12:50] VITALS: BP 103/62; PULSE 113; RESP 17; TEMP 98
[2023-01-17] MEDS ORDERED: CLOTRIMAZOLE 10 MG TROCHE PO SCH (14:00)
[2023-01-18] MEDS ORDERED: diazePAM 5 MG TABLET PO SCH (06:00)
[2023-01-19] MEDS ORDERED: diazePAM 5 MG TABLET PO ONE (06:00)
== END 2023-01-17 13:50 | disposition left against medical advice (07) | DRG 770 ==
LOC: YASAS 12:36 → Y3W 17:14 → Y6N 19:37
PROVIDERS: ADMIT Allergy & Immunology; ATTEND Allergy & Immunology
PROC: HZ2ZZZZ Detoxification Services for Substance Abuse Treatment (ICD-10-PCS; principal; 2023-01-15)
DX: F10.230 Alcohol dependence with withdrawal, uncomplicated (principal); F11.20 Opioid dependence, uncomplicated; F14.20 Cocaine dependence, uncomplicated; F17.210 Nicotine dependence, cigarettes, uncomplicated; F19.280 Other psychoactive substance dependence with psychoactive substance-induced anxiety disorder; F19.282 Other psychoactive substance dependence with psychoactive substance-induced sleep disorder; F19.24 Other psychoactive substance dependence with psychoactive substance-induced mood disorder; B20 Human immunodeficiency virus [HIV] disease; B37.0 Candidal stomatitis; J45.20 Mild intermittent asthma, uncomplicated; J44.9 Chronic obstructive pulmonary disease, unspecified; M16.0 Bilateral primary osteoarthritis of hip; R63.4 Abnormal weight loss; Z68.1 Body mass index [BMI] 19.9 or less, adult
CPT/HCPCS: 36415; 80053; 85027; 86593; 86780; 87635; 87811